=== PATIENT | female | born 1955 | race Caucasian/White ===

== ENCOUNTER → 2020-05-12 11:23 | Outpatient (CLI) | payer OTHER, SELFPAY ==
--- NOTE | ~2020-05-12 | MM_ITS ---
EXAMINATION: MM screening anastasia BI w jalen HISTORY: Screening mammogram TECHNIQUE: Craniocaudal and mediolateral oblique 3-D tomosynthesis images were obtained and synthetic 2-D images were generated. CAD analysis was submitted and interpreted. COMPARISON: 12/24/2018, 10/31/2017, 10/25/2016 bilateral digital screening mammograms BREAST PARENCHYMAL COMPOSITION: FINDINGS: An approximately 8 mm asymmetric opacity is noted in the mid posterior outer mid right jon st; diagnostic right mammogram is recommended, with ultrasound if required. Otherwise there is no evidence of suspicious mass, calcification, or architectural distortion to sugg est malignancy in either breast. There has been no suspicious interval change. IMPRESSION: 1. 8 mm asymmetric opacity in the mid outer right breast on craniocaudal view; 2. Diagnostic right mammogram is recommended, with ultrasound if required BI-RADS Category 0: Incomplete: Needs additional imaging evaluation. Reviewed, dictated and finalized at location A.
== END ==
PROVIDERS: PCP Internal Medicine; Visit Provider Nurse Practitioner Obstetrics & Gynecology
DX: Z12.31 Encounter for screening mammogram for malignant neoplasm of breast (principal); R92.8 Other abnormal and inconclusive findings on diagnostic imaging of breast
CPT/HCPCS: 77063; 77067

== ENCOUNTER → 2020-05-27 08:47 | Outpatient (CLI) | payer OTHER, SELFPAY ==
--- NOTE | ~2020-05-27 | MMUS_ITS ---
EXAMINATION: MM diagnostic mammo unilat RT, US breast RT limited HISTORY: Right breast asymmetry on screening mammogram TECHNIQUE: Additional 3-D tomosynthesis images of the right breast were performed and synthetic 2-D i mages were generated. CAD analysis was submitted and interpreted. High resolution limited right breas t ultrasound was performed. COMPARISON: 05/12/2020, 12/15/2018, 10/31/2017, 10/25/2016 FINDINGS: MAMMOGRAPHIC FINDINGS: An asymmetry in the middle third of the outer breast on the craniocaudal view 9.5 cm from the nipple has an appearance similar to prior mammograms with spot compression. There has been no suspicious int erval change. No suspicious calcification or architectural distortion are identified. ULTRASOUND: There is no evidence of focal abnormal solid or cystic lesion in the vicinity of the mammographic fin ding in question. IMPRESSION: 1. No mammographic or sonographic evidence of malignancy. 2. Recommend routine screening mammography in one year. BI-RADS Category 2: Benign finding(s). Reviewed, dictated and finalized at location A. IMPRESSION: 1. No mammographic or sonographic evidence of malignancy. 2. Recommend routine screening mammography in one year. BI-RADS Category 2: Benign finding(s).
== END ==
PROVIDERS: PCP Internal Medicine; Visit Provider Nurse Practitioner Obstetrics & Gynecology
DX: R92.8 Other abnormal and inconclusive findings on diagnostic imaging of breast (principal)
CPT/HCPCS: 76642; 77065

== ENCOUNTER 2022-01-27 11:18 | Outpatient (CLI) | payer MEDICARE, SELFPAY ==
[2022-01-27 11:39] LABS: Basophils Percent Auto 0.4 % (0.2-1.2); Eosinophils Absolute Auto 0.2 K/mm3 (0-0.3); Eosinophils Percent Auto 2.4 % (0-4.4); Hematocrit 36.8 % (37.0-47.0); Hemoglobin 11.2 g/dL (12.0-15.0); Immature Granulocyte Absolute 0.02 K/mm3 (0.00-0.031); Immature Granulocyte Percent A 0.2 % (0-0.5); Lymphocytes Absolute Auto 2.34 K/mm3 (0.9-3.2); Lymphocytes Percent Auto 24.1 % (18.3-44.2); Mean Corpuscular HGB Conc 30.4 g/dl (32-36); Mean Corpuscular Hemoglobin 26.3 pg (26-34); Mean Corpuscular Volume 86.4 fl (80-100); Mean Platelet Volume 8.1 fl (7.4-10.4); Monocytes Absolute Auto 0.8 K/mm3 (0.1-0.6); Neutrophils Absolute Auto 6.3 K/mm3 (1.3-6.7); Neutrophils Percent Auto 64.9 % (45.5-73.1); Platelet Count Result 473 k/mm3 (150-375); Red Blood Count 4.26 M/mm3 (4.2-5.4); Red Cell Distribution Width 15.3 % (11.5-14.5); White Blood Count 9.7 K/mm3 (4.5-10.0)
[2022-01-27 12:40] LABS: Iron 60 ug/dL (37-170)
[2022-01-27 12:41] LABS: Alanine Aminotransferase 28 U/L (6-35); Albumin Level 4.4 g/dL (3.5-5.1); Alkaline Phosphatase 109 U/L (38-126); Anion Gap 7 mmol/L (8-16); Aspartate Amino Transferase 33 U/L (14-36); Bilirubin,Total 0.2 mg/dL (0.2-1.3); Blood Urea Nitrogen 13 mg/dL (7-17); CRP 1.2 mg/dL (<1.0); Calcium 9.2 mg/dL (8.4-10.2); Carbon Dioxide 29 mmol/L (22-30); Chloride 103 mmol/L (98-107); Estimated Glomerular Filt Rate > 60; Glucose 99 mg/dL (65-110); Potassium 4.4 mmol/L (3.4-5.0); Sodium 139 mmol/L (137-145)
[2022-01-27 12:49] LABS: Erythrocyte Sedimentation Rate 47 mm/hr (0-20)
[2022-01-27 12:50] LABS: Percent Iron Saturation 17 % (20-50)
== END 2022-01-27 11:19 | disposition home or self-care (01) ==
LOC: ANHLAB 11:19
PROVIDERS: Visit Provider Internal Medicine Hematology & Oncology
DX: D64.9 Anemia, unspecified (principal)
CPT/HCPCS: 36415; 80053; 82728; 83540; 83550; 85025; 85652; 86140

== ENCOUNTER → 2022-03-08 15:08 | Outpatient (CLI) | payer MEDICARE, SELFPAY ==
--- NOTE | ~2022-03-08 | MM_ITS ---
EXAMINATION: MM screening anastasia BI w jalen HISTORY: Screening mammogram, family history of breast cancer in her sister. TECHNIQUE: Craniocaudal and mediolateral oblique 3-D tomosynthesis images were obtained and synthetic 2-D images were generated. CAD analysis was submitted and interpreted. COMPARISON: 05/27/2020, 05/12/2020, 12/24/2018 BREAST PARENCHYMAL COMPOSITION: There are scattered areas of fibroglandular density. FINDINGS: There is no suspicious mass, calcification, or architectural distortion to suggest malignan cy in either breast. There has been no suspicious interval change. IMPRESSION: 1. No mammographic evidence of malignancy. 2. Recommend routine screening mammography in one year. BI-RADS Category 1: Negative Reviewed, dictated and finalized at location A.
== END ==
PROVIDERS: PCP Internal Medicine; Visit Provider Obstetrics & Gynecology
DX: Z12.31 Encounter for screening mammogram for malignant neoplasm of breast (principal)
CPT/HCPCS: 77063; 77067

== ENCOUNTER 2023-01-31 02:03 | Day surgery (SDC) | payer MEDICARE, SELFPAY ==
[2023-01-24 14:37] VITALS: BMI 39.2
[2023-01-31 07:09] VITALS: BMI 40.1
[2023-01-31] MEDS: LACTATED RINGERS 1,000 ML 150 ML IV CONT (07:29)
[2023-01-31 07:31] VITALS: BP 188/76; PULSE 92; RESP 18; TEMP 36.3; O2SAT 98
[2023-01-31 07:33] LABS: Glucose Point of Care 138 mg/dl (65-105)
--- NOTE | 2023-01-31 07:34 | WPDANESEPPF ---
Anes - Initial Pre Proc Eval Procedure: Operation Date: 01/31/23 08:00 Proposed Procedures p Esophagogastroduodenoscopy & Screening Colonoscopy - Joseph Harvey MD Date/Time: 01/31/23 07:34 Surgeon: Joseph Harvey MD Pre Op Diagnosis: neoplasm screening, GERD Patient Data Age: 67 Gender: F Height: 1.65 m Weight: 109.3 kg Last Vital Signs Temp 36.3 C L 01/31/23 07:31 Pulse 92 01/31/23 07:31 Resp 18 01/31/23 07:31 BP 188/76 H 01/31/23 07:31 Pulse Ox 98 01/31/23 07:31 O2 Del Method Room Air 01/31/23 07:31 Allergies Allergy/AdvReac Type Severity Reaction Status Date / Time tioconazole Allergy Intermediate Swelling Verified 01/31/23 07:05 [From Monistat 1 (tioconazole)] adhesive tape AdvReac Intermediate Other Verified 01/31/23 07:05 Home Medications Medication Instructions Recorded Confirmed Type aripiprazole 5 mg tablet 5 mg PO DAILY 01/21/21 01/31/23 History metformin 500 mg tablet 500 mg PO BID 01/21/21 01/31/23 History sulfasalazine 500 mg tablet 0.5 g PO DAILY 01/21/21 01/31/23 History trazodone 50 mg tablet 50 mg PO QHS Insomnia 01/21/21 01/31/23 History venlafaxine 150 mg 150 mg PO DAILY 08/11/22 01/31/23 History capsule,extended release 24 hr Adult Multivitamin Gummies 1 tab-cap PO DAILY 01/24/23 01/31/23 History atorvastatin 80 mg tablet 80 mg PO DAILY 01/24/23 01/31/23 History esomeprazole magnesium 20 mg 20 mg PO DAILY 01/24/23 01/31/23 History capsule,delayed release (Nexium 24HR) Laboratory Tests 01/31/23 07:27 POC Capillary Glucose 138 H mg/dl (65-105) Patient hx anesthesia problems: none Family hx anesthesia problems: none Results Review: All pre-operative results and documents have been reviewed as part of the pre-operative evaluation. COUNTS INCLUDE 234 BEDS AT THE [facility] Past Medical History Medical History (Updated 01/31/23 @ 07:36 by Jaxon Chris MD) Anxiety Arthritis Diabetes GERD (gastroesophageal reflux disease) Headache Irritable bowel syndrome Morbid obesity with BMI of 40.0-44.9, adult Family History Family History (Updated 01/21/21 @ 14:21 by Nivia Mcmahan MA) Father Malignant neoplasm of prostate Hypertension Acute myocardial infarction Mother Diabetes mellitus Hypertension Depression Thyroid disease Sibling Asthma Diabetes mellitus Depression Kidney disease Son Diabetes mellitus Social History Social History (Updated 01/21/21 @ 14:22 by Niiva Mcmahan MA) Smoking status: Never smoker Alcohol intake: never Substance use: never Substance use type: does not use Living arrangements: with family Occupation/Education: retired Gender identity (if verbalized by the patient): Female Sexual Orientation (if Verbalized by the Patient): Straight or Heterosexual Spiritual care concerns: No Agree to blood products: Yes Anes - Eval Final PreProcedure Day of Procedure 01/31/23 07:34 Patient weight: morbidly obese Heart: regular rate and rhythm Lungs: clear to auscultation and normal air movement Airway: Mallampati scale class II Neurological: alert and oriented Last oral intake: >/= 8 hours ASA classification: III Emergent: no Anesthetic plan: proceed Anesthesia type and monitoring: general GIVS Results Review: All pre-operative results and documents have been reviewed as part of the pre-operative evaluation. Informed Consent: The patient's anesthetic plan and its attendant risks and benefits were discussed with the patient/family/POA. Questions were solicited and answers provided to the satisfaction of the patient/family/POA.
--- NOTE | 2023-01-31 07:50 | PM.HPGS ---
History of Present Illness History of Present Illness Consent: Risks, benefits, and alternatives have been discussed and questions answered. Patient agrees to proceed with procedure. Chief complaint: neoplasm screening, GERD Narrative: Suki Charles is a 67 year old female Presents for both colonoscopy and EGD the. Patient has a history of chronic GE reflux disease. Currently maintained on Nexium 20mg p.o. daily. EGD is requested because chronicity of her GE reflux symptoms. Additionally patient presents for neoplasia screening colonoscopy. Patient's current weight appetite and bowel movements are normal. Patient denies abdominal pain. She has had no bleeding. Family history is noncontributory. Review of Systems Review of Systems: Review of systems noncontributory. [facility] Past Medical History Medical History (Updated 01/31/23 @ 07:52 by Joseph Harvey MD) Anxiety Arthritis Diabetes GERD (gastroesophageal reflux disease) Headache Irritable bowel syndrome Morbid obesity with BMI of 40.0-44.9, adult Family History Family History (Updated 01/21/21 @ 14:21 by Nivia Mcmahan MA) Father Malignant neoplasm of prostate Hypertension Acute myocardial infarction Mother Diabetes mellitus Hypertension Depression Thyroid disease Sibling Asthma Diabetes mellitus Depression Kidney disease Son Diabetes mellitus Social History Social History (Updated 01/21/21 @ 14:22 by Nivia Mcmahan MA) Smoking status: Never smoker Alcohol intake: never Substance use: never Substance use type: does not use Living arrangements: with family Occupation/Education: retired Gender identity (if verbalized by the patient): Female Sexual Orientation (if Verbalized by the Patient): Straight or Heterosexual Spiritual care concerns: No Agree to blood products: Yes Meds Home Medications and Allergies Home Medications Medication Instructions Recorded Confirmed Type aripiprazole 5 mg tablet 5 mg PO DAILY 01/21/21 01/31/23 History metformin 500 mg tablet 500 mg PO BID 01/21/21 01/31/23 History sulfasalazine 500 mg tablet 0.5 g PO DAILY 01/21/21 01/31/23 History trazodone 50 mg tablet 50 mg PO QHS Insomnia 01/21/21 01/31/23 History venlafaxine 150 mg 150 mg PO DAILY 08/11/22 01/31/23 History capsule,extended release 24 hr Adult Multivitamin Gummies 1 tab-cap PO DAILY 01/24/23 01/31/23 History atorvastatin 80 mg tablet 80 mg PO DAILY 01/24/23 01/31/23 History esomeprazole magnesium 20 mg 20 mg PO DAILY 01/24/23 01/31/23 History capsule,delayed release (Nexium 24HR) Allergies Allergy/AdvReac Type Severity Reaction Status Date / Time tioconazole Allergy Intermediate Swelling Verified 01/31/23 07:05 [From Monistat 1 (tioconazole)] adhesive tape AdvReac Intermediate Other Verified 01/31/23 07:05 Vital Signs Vital Signs - 24 hr 01/31/23 07:31 Temperature 97.4 F L Pulse Rate 92 Respiratory Rate 18 Blood Pressure 188/76 H Pulse Oximetry 98 Oxygen Delivery Room Air Exam Narrative: Physical exam reveals patient to be alert. Vital signs stable. HEENT exam is unremarkable. Patient is anicteric. Lungs are clear to auscultation and percussion. Heart is without murmur or extra sounds. Abdomen bowel sounds are present soft nontender with no organomegaly. Digital external rectal exam is normal. Assessment and Plan Assessment and plan (1) Encounter for screening colonoscopy: Code(s): Z12.11 - Encounter for screening for malignant neoplasm of colon Status: Acute Assessment and Plan: Patient presents for neoplasia screening colonoscopy. Further recommendations may be given after endoscopy. (2) GERD (gastroesophageal reflux disease): Code(s): K21.9 - Gastro-esophageal reflux disease without esophagitis Status: Acute Assessment and Plan: Patient with chronic GE reflux disease symptoms. Currently controlle
--- NOTE | 2023-01-31 08:14 | SUR.OPER ---
EGD: [id number] COLON: [id number]
[2023-01-31 08:24] VITALS: BP 142/73; PULSE 86; RESP 22; O2SAT 96
[2023-01-31 08:34] VITALS: BP 153/69; PULSE 88; RESP 20; O2SAT 97
[2023-01-31 08:44] VITALS: BP 149/69; PULSE 87; RESP 20; O2SAT 97
== END 2023-01-31 08:49 | disposition home or self-care (01) ==
PROVIDERS: PCP Internal Medicine; Visit Provider Internal Medicine Gastroenterology
PROC: 0DJ08ZZ Inspection of Upper Intestinal Tract, Via Natural or Artificial Opening Endoscopic (ICD-10-PCS; CPT 43235; principal; 2023-01-31 08:00)
DX: Z12.11 Encounter for screening for malignant neoplasm of colon (principal); D12.4 Benign neoplasm of descending colon; K64.8 Other hemorrhoids; K21.9 Gastro-esophageal reflux disease without esophagitis; E11.9 Type 2 diabetes mellitus without complications; F41.9 Anxiety disorder, unspecified; E66.01 Morbid (severe) obesity due to excess calories; Z68.41 Body mass index [BMI] 40.0-44.9, adult; Z79.84 Long term (current) use of oral hypoglycemic drugs
CPT/HCPCS: 45385; 43239; 82948; 87081; 88305; J2704; J7120

== ENCOUNTER 2023-08-09 13:58 | Emergency (ER) | payer MEDICARE, SELFPAY ==
--- NOTE | ~2023-08-09 | CT_ITS ---
EXAMINATION: CT brain wo con INDICATION: Head injury COMPARISON: None TECHNIQUE: Standard unenhanced head CT. The dose-length product (DLP) was 681.00 mGy-cm. The mA was a djusted according to patient size. Iterative reconstruction technique was employed. FINDINGS: No intracranial hemorrhage, acute infarction, or abnormal mass lesion. The ventricles are n ormal. No abnormal mass effect or midline shift. The urrutia-white matter differentiation is normal. The basal cisterns are patent. The orbits are normal. The paranasal sinuses, mastoids and calvarium are normal. IMPRESSION: 1. No acute intracranial abnormality. Reviewed, dictated and finalized at location B. TING BINDERY ASSISTANT
--- NOTE | ~2023-08-09 | CT_ITS ---
EXAMINATION: CT facial & cervical spine wo DATE: 08/09/2023 16:23 INDICATION: Head injury TECHNIQUE: Computed tomography (CT) of the maxillofacial region and cervical spine was performed with out intravenous contrast. The dose-length product (DLP) was 601.29 mGy-cm. Automated exposure control and iterative reconstruction technique were employed. COMPARISON: None FINDINGS: MAXILLOFACIAL CT: There are nondisplaced bilateral nasal bone fractures. No additional facial fracture is identified. T he globes and orbits are normal. The paranasal sinuses are well aerated. CERVICAL SPINE CT: There are 3 mm of retrolisthesis of C5 on C6. Bone alignment is otherwise normal. The vertebral body heights are maintained. The odontoid process is intact. There is no fracture. There is moderate to se julia loss of intervertebral disc space height at C5-6 and C6-7. There is multilevel moderate to sever e facet and uncovertebral joint osteoarthritis. IMPRESSION: 1. Nondisplaced bilateral nasal bone fractures. 2. Moderate cervical spondylosis without acute abnormality of the cervical spine. Reviewed, dictated and finalized at location B. AS CUTTER HAND IMPRESSION: 1. Nondisplaced bilateral nasal bone fractures. 2. Moderate cervical spondylosis without acute abnormality of the cervical spin e.
[2023-08-09 14:02] VITALS: BP 185/96; PULSE 91; RESP 17; TEMP 36.4; O2SAT 96
--- NOTE | 2023-08-09 16:06 | ED.FALL ---
HPI - Fall General Chief Complaint: Fall Stated Complaint: fall yesterday Time Seen by Provider: 08/09/23 15:05 History of Present Illness HPI Narrative: 68-year-old female presenting after a fall. Patient states that she tripped in her bathroom yesterday and fell onto her face. States that she has had some facial and neck soreness. Does not think that she lost consciousness. She called her PCP today who advised that she come in for evaluation. No numbness or weakness. No chest pain, nausea vomiting, abdominal pain. No further complaints. Related Data Home Medications Medication Instructions Recorded Confirmed aripiprazole 5 mg tablet 5 mg PO DAILY 01/21/21 08/14/23 metformin 500 mg tablet 500 mg PO BID 01/21/21 08/14/23 sulfasalazine 500 mg tablet 0.5 g PO DAILY 01/21/21 08/14/23 trazodone 50 mg tablet 50 mg PO QHS Insomnia 01/21/21 08/14/23 venlafaxine 150 mg 150 mg PO DAILY 08/11/22 08/14/23 capsule,extended release 24 hr Adult Multivitamin Gummies 1 tab-cap PO DAILY 01/24/23 08/14/23 atorvastatin 80 mg tablet 80 mg PO DAILY 01/24/23 08/14/23 esomeprazole magnesium 20 mg 20 mg PO DAILY 01/24/23 08/14/23 capsule,delayed release (Nexium 24HR) Allergies Allergy/AdvReac Type Severity Reaction Status Date / Time tioconazole Allergy Intermediate Swelling Verified 08/14/23 08:25 [From Monistat 1 (tioconazole)] adhesive tape AdvReac Intermediate Other Verified 08/14/23 08:25 Review of Systems Review of Systems: All systems reviewed & are unremarkable except as noted in HPI and below PMFSH Past Medical History Medical History Anxiety Arthritis Diabetes GERD (gastroesophageal reflux disease) Headache Irritable bowel syndrome Morbid obesity with BMI of 40.0-44.9, adult Family History Family History Father Malignant neoplasm of prostate Hypertension Acute myocardial infarction Mother Diabetes mellitus Hypertension Depression Thyroid disease Sibling Asthma Diabetes mellitus Depression Kidney disease Son Diabetes mellitus Social History Social History Smoking status: Never smoker Alcohol intake: never Substance use: never Substance use type: does not use Lack of Transportation: No Lack of Food: Never True Current Housing: I Have Housing Concerned About Future Housing: No Difficulty Paying Gas/Electric Bills: No Difficulty Paying for Meds: No Currently Unemployed: No Education: High School Diploma/GED Difficulty w/ Childcare or Family Care: No Living arrangements: with family Occupation/Education: retired Gender identity (if verbalized by the patient): Female Sexual Orientation (if Verbalized by the Patient): Straight or Heterosexual Spiritual care concerns: No Agree to blood products: Yes Exam Narrative: GENERAL: Well-appearing, well-nourished, and in no acute distress. HEAD: Normocephalic, atraumatic. EYES: PERRLA and EOMI. ENT: erythema and tenderness over nasal bridge, no epistaxis, no septal hematoma NECK: Supple. no midline tenderness CHEST: No respiratory distress. HEART: Regular rate and rhythm. EXTREMITIES: Normal range of motion. SKIN: Warm, dry, no rash. NEURO: No focal deficits. Alert and oriented x3. PSYCH: Normal mood and affect. Course Vital Signs Vital signs: Vital Signs Temperature 97.6 F 08/09/23 14:02 Pulse Rate 91 08/09/23 14:02 Respiratory Rate 17 08/09/23 14:02 Blood Pressure 185/96 H 08/09/23 14:02 Pulse Oximetry 96 08/09/23 14:02 Oxygen Delivery Room Air 08/09/23 14:02 Temperature 97.6 F 08/09/23 14:02 Pulse Rate 88 08/09/23 18:12 Respiratory Rate 20 08/09/23 18:12 Blood Pressure 157/99 H 08/09/23 18:12 Pulse Oximetry 100 08/09/23 18:12 Oxygen Delivery Room Air 08/09/23 14:
[2023-08-09 18:12] VITALS: BP 157/99; PULSE 88; RESP 20; O2SAT 100
== END 2023-08-09 18:13 | disposition home or self-care (01) ==
PROVIDERS: Emergency Provider Emergency Medicine; PCP Internal Medicine
DX: S02.2XXA Fracture of nasal bones, initial encounter for closed fracture (principal); E11.9 Type 2 diabetes mellitus without complications; E66.01 Morbid (severe) obesity due to excess calories; Z68.39 Body mass index [BMI] 39.0-39.9, adult; K21.9 Gastro-esophageal reflux disease without esophagitis; K58.9 Irritable bowel syndrome, unspecified; M19.90 Unspecified osteoarthritis, unspecified site; F41.9 Anxiety disorder, unspecified; Z79.84 Long term (current) use of oral hypoglycemic drugs; M47.812 Spondylosis without myelopathy or radiculopathy, cervical region; W01.0XXA Fall on same level from slipping, tripping and stumbling without subsequent striking against object, initial encounter
CPT/HCPCS: 70450; 70486; 72125; 99284

== ENCOUNTER → 2023-10-31 13:46 | Outpatient (CLI) | payer MEDICARE, SELFPAY ==
--- NOTE | ~2023-10-31 | MM_ITS ---
EXAMINATION: MM screening anastasia BI w jalen HISTORY: Screening mammogram TECHNIQUE: Craniocaudal and mediolateral oblique 3-D tomosynthesis images were obtained and synthetic 2-D images were generated. CAD analysis was submitted and interpreted. COMPARISON: 03/08/2022 bilateral screening mammogram BREAST PARENCHYMAL COMPOSITION: The breasts are almost entirely fatty. FINDINGS: There is no evidence of suspicious mass, calcification, or architectural distortion to sugg est malignancy in either breast. There has been no suspicious interval change. IMPRESSION: 1. No mammographic evidence of malignancy. 2. Recommend routine screening mammography in one year. BI-RADS Category 1: Negative Reviewed, dictated and finalized at location A. BINDERY ASSEMBLY WORKER
== END ==
PROVIDERS: PCP Internal Medicine; Visit Provider Nurse Practitioner Obstetrics & Gynecology
DX: Z12.31 Encounter for screening mammogram for malignant neoplasm of breast (principal)
CPT/HCPCS: 77063; 77067

== ENCOUNTER 2023-11-13 13:33 | Outpatient (CLI) | payer MEDICARE, SELFPAY ==
[2023-11-13 14:05] LABS: Basophils Absolute Auto 0.1 K/mm3 (0.0-0.1); Basophils Percent Auto 0.4 % (0.2-1.2); Eosinophils Absolute Auto 0.2 K/mm3 (0-0.3); Eosinophils Percent Auto 1.7 % (0-4.4); Hematocrit 40.2 % (37.0-47.0); Hemoglobin 12.4 g/dL (12.0-15.0); Immature Granulocyte Absolute 0.06 K/mm3 (0.00-0.031); Immature Granulocyte Percent A 0.5 % (0-0.5); Lymphocytes Absolute Auto 2.37 K/mm3 (0.9-3.2); Lymphocytes Percent Auto 18.6 % (18.3-44.2); Mean Corpuscular HGB Conc 30.8 g/dl (32-36); Mean Corpuscular Hemoglobin 27.6 pg (26-34); Mean Corpuscular Volume 89.3 fl (80-100); Mean Platelet Volume 8.5 fl (7.4-10.4); Monocytes Absolute Auto 0.9 K/mm3 (0.1-0.6); Monocytes Percent Auto 7.1 % (2.6-8.5); Neutrophils Absolute Auto 9.2 K/mm3 (1.3-6.7); Neutrophils Percent Auto 71.7 % (45.5-73.1); Platelet Count Result 498 k/mm3 (150-375); Red Cell Distribution Width 14.6 % (11.5-14.5); White Blood Count 12.8 K/mm3 (4.5-10.0)
[2023-11-13 16:32] LABS: Iron 45 ug/dL (37-170)
[2023-11-13 16:35] LABS: Anion Gap 5 mmol/L (8-16); Blood Urea Nitrogen 13 mg/dL (7-17); Calcium 9.6 mg/dL (8.4-10.2); Carbon Dioxide 32 mmol/L (22-30); Chloride 101 mmol/L (98-107); Estimated Glomerular Filt Rate > 60; Glucose 123 mg/dL (65-110); Potassium 4.1 mmol/L (3.4-5.0); Sodium 138 mmol/L (137-145)
[2023-11-13 16:43] LABS: Percent Iron Saturation 16 % (20-50)
== END 2023-11-13 13:34 | disposition home or self-care (01) ==
LOC: ANHLAB 13:34
PROVIDERS: PCP Internal Medicine; Visit Provider Internal Medicine Hematology & Oncology
DX: D64.9 Anemia, unspecified (principal)
CPT/HCPCS: 36415; 80048; 82728; 83540; 83550; 85025

== ENCOUNTER 2024-11-22 13:50 | Outpatient (CLI) | payer MEDICARE, SELFPAY ==
--- OUTSIDE RECORDS SUMMARY | 2024-11-22 13:53 | XMS_ITS | Clinical Summary ---
Author Organization [facility] Address [address] [place] [id number] Phone Care Team Providers Care Commanding Officer Garage Name Role Phone Jai Quinones MD Primary Care Provider [phone] Allergies Active Allergy Reactions Criticality Noted Date Comments Wound Dressing Adhesive High 05/09/2017 Medications Medication Sig Dispensed Refills Start Date End Date Status ARIPiprazole (ABILIFY) 5 MG tablet 07/06/2021 Active metFORMIN (GLUCOPHAGE) 500 MG tablet 06/17/2021 Active rosuvastatin (CRESTOR) 40 MG tablet 05/26/2021 Active sulfaSALAzine (AZULFIDINE) 500 MG EC tablet Take 500 mg by mouth 2 (two) times a day 08/04/2021 Active traZODone (DESYREL) 50 MG tablet 06/17/2021 Active cyclobenzaprine (FLEXERIL) 10 MG tablet Take 10 mg by mouth 1 (one) time each day if needed 10/13/2021 Active atorvastatin (LIPITOR) 80 MG tablet 02/09/2022 Active ergocalciferol (VITAMIN D2) 1.25 MG (16303 UT) capsule Take 50,000 Units by mouth 1 (one) time per week 02/09/2022 Active Nystop 697398 UNIT/GM powder 06/09/2022 Active venlafaxine XR (EFFEXOR-XR) 150 MG 24 hr capsule 05/19/2022 Active Active Problems Problem Noted Date Diagnosed Date Attention-deficit hyperactiv ity disorder predominantly inattentive type 08/29/2021 Disorder of shoulder 08/29/2021 Disorder of trunk 08/29/2021 Enthesopathy of hip region 08/29/2021 Implantation of joint prosthesis 08/29/2021 Iron deficiency anemia 08/29/2021 Knee pain 08/29/2021 Lumbago 08/29/2021 Neck pain 08/29/2021 Osteoarthritis of knee 08/29/2021 Radiotherapy follow-up 08/29/2021 Shoulder joint pain 08/29/2021 Sinusitis 08/29/2021 Upper respiratory infection 08/29/2021 Hypertriglyceridemia 07/25/2018 Mitral valve regurgitation 07/25/2018 Spinal stenosis 07/25/2018 Human leukocyte antigen B27 test positive 2017 Overview (11/04/2021): Last Assessment & Plan: I have given her release of information so I can review her imaging an operative report to determine if there is any evidence of inflammatory spinal disease. 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 Abdominal gaseous distension 05/09/2017 Anxiety disorder 05/09/2017 Bronchitis 05/09/2017 Chest pain 05/09/2017 Chronic arthritis 05/09/2017 Chronic depression 05/09/2017 FH: Raised blood lipids 05/09/2017 Overview (08/29/2021): dad bypass,, mom pacer Gastro-esophageal reflux disease with esophagiti s 05/09/2017 Hyperlipidemia 05/09/2017 Iron deficiency 05/09/2017 Overview (08/29/2021): b12 cok Obesity 05/09/2017 Palpitations 05/09/2017 Sleep apnea 05/09/2017 Vitamin D deficiency 05/09/2017 Degenerative joint disease involving multiple luis ints 06/02/2014 Overview (11/04/2021): Last Assessment & Plan: I discussed with her that although possible she may have a mild peripheral spondyloarthropathy that we are addressing this with her sulfasalazine. She has no symptoms to suggest axial involvement and no other symptoms to warrant biologic therapy. We will continue sulfasalazine at her current dose and she will follow up with me in 6 months. Immunizations Name Administration Dates Next Due Influenza Split High Dose Pr eservative Free IM 06/24/2020,2015 Influenza TIV (IM) 05/30/2021 Influenza, Injectable, Quadr ivalent, Preservative Free 06/13/2019,05/28/2017,06/02/2016 Influenza, Unspecified 06/06/2018 Moderna Sars-cov-2 Vaccination 11/17/2020,2020 Family History Medical History Relation Comments Prostate cancer Father Kidney disease Mother Diabetes mellitus Sister Kidney disease Sister Nephrolithiasis Neg Hx Relation Status Comments Father Mother Paternal Grandfather Alive Sister Social History Tobacco Use Types Packs/Day Years Used Date Smoking Tobacco: Never Smokeless Tobacco: Never Alcohol Use Standard Drinks/Week Comments Not Currently 0 (1 standard drink = 0.6 oz pur e alcohol) Sex and Gender Information Value Date Recorded Sex Assigned at Not on file Gender Identity Not on file Sexual Orientation Not on file Last Filed Vital Signs Vital Sign Reading Time Taken Comments Blood Pressure 122/68 11/04/2021 10:16 AM DIE SINKER APPRENTICE Pulse - - Temperature 36.9 C (98.5 F) 11/04/2021 10:16 AM DIE SINKER APPRENTICE Respiratory Rate 18 11/04/2021 10:16 AM DIE SINKER APPRENTICE Oxygen Saturation - - Inhaled Oxygen Concentration - - Weight 105 kg (232 lb) 11/04/2021 10:16 AM DIE SINKER APPRENTICE Height 165.1 cm (5' 5 ) 11/04/2021 10:16 AM DIE SINKER APPRENTICE Body Mass Index 38.61 11/04/2021 10:16 AM DIE SINKER APPRENTICE Plan of Treatment Health Maintenance Due Date Last Done Comments Pneumococcal PPSV23/PCV13 65 + Years / Low and Medium Risk (1 of 4 - PCV) 2020 COVID-19 Vaccine (3 - 2023-2 5 season) 2024 11/17/2020, 10/15/2020 Influenza Vaccine (#1) 2024 , 06/13/2019, 06/06/2018, Additional history exists Care Teams Commanding Officer Garage Relationship Specialty Start Date End Date Jai Quinones MD [facility] [place] [address] PCP - General Family Medicine 04/20/21
--- OUTSIDE RECORDS SUMMARY | 2024-11-22 13:53 | XMS_ITS ---
Author Organization [facility], Address [address] [address] Care Team Providers Care Soil Biology Teacher Name Role Phone LewrubyJai Primary Care Provider UnaEleno Adan Unavailable [phone] REASON FOR VISIT Right Arm Encounters Encounter Location Date Provider Diagnosis [facility], [address] [facility] [address] [place] [address] 11/19/2024 Eleno Clay PLAN OF TREATMENT Next Appt Details Provider Name:Eleno Kaufman ot, 12/11/2024 11:30:00 AM, [address], [facility] [address], [place], [address],
--- OUTSIDE RECORDS SUMMARY | 2024-11-22 13:53 | XMS_ITS ---
Author Organization [facility] Address [address] [place] [address] [address] [place] [address] Care Team Providers Care Environmental Director Name Role Phone Timobrandonedgardoruby Jai Primary Care Provider Eleno Caicedo Unavailable [phone] ALLERGIES Allergen (clinical drug ingredient) Drug/Non Drug Allergy documented on EMR Reaction Allergy Type Onset Date Status seasonal (uncoded) Unknown Allergy A ctive RESULTS Component Value Reference Range Notes X ray : Cervical Spine 7 vie ws, AP, Lateral, Swimmers, Obliques, Flexion and Extension Reviewed date:11/21/2024 01:26:45 PM Interpretation:1213 Performing Lab: Notes/Report: 1213 X ray : Lumbar spine 5 views , AP, Lateral, Spot, Flexion and Extension Reviewed date:11/21/2024 01:26:40 PM Interpretation:1213 Performing Lab: Notes/Report: 1213 REASON FOR REFERRAL Reason DIAGNOSES: neck pain , radiculopathy, DDD, spinal stenosis, back pain 3 times per week for 3 weeks eval and treat, exercise, modalities per therapist's discretion; HEP Referral Organization [facility] Referring Provider First Name Eleno Referring Provider Last Name Obed Referring Provider Speciality Orthopedic Surgery Referred Provider Specialty Physical The rapy Referral Priority Routine REASON FOR VISIT Low back pain and cervical spine MEDICATIONS Medication SIG (Take, Route, Fr equency, Duration) Notes Start Date End Date Status buPROPion HCl Active ARIPiprazole Active methylPREDNISolone 4 MG as directed Oral ly for 6 days 11/21/2024 Active Culturelle Active traMADol HCl 50 MG 1 tablet as needed O rally every 4-6 hours as needed for pains for 7 days 11/21/2024 Active Venlafaxine HCl Acti ve sulfaSALAzine Active Nasacort Allergy 24HR Active L-Lysine Active Loratadine Active metFORMIN HCl Active traZODone HCl Active VITAL SIGNS BMI 39.93 kg/m2 11/21/2024 Height 65 in 11/21/2024 Weight 240 lbs 11/21/2024 Encounters Encounter Location Date Provider Diagnosis [facility], [address] [place] [address] 11/21/2024 Eleno Clay Cervical stenosis of spine M48.02 ASSESSMENTS Encounter Date Diagnosis Assessment Notes Treatment Notes Treatment Clinical Notes 11/21/2024 Cervical stenosis of spine (ICD-10 - M48.02) PLAN OF TREATMENT Medication Medication Name Sig Start Date Stop Date Notes methylPREDNISolone 4 MG as directed Orally for 6 days 10/27 traMADol HCl 50 MG 1 tablet as needed O rally every 4-6 hours as needed for pains for 7 days 11/21/2024 Pending Test Test Name Order Date MRI : Cervical without Contrast 11/22/19 25 Referrals Referral Date Details DIAGNOSES: neck pain , radiculopathy, DDD, spinal stenosis, back pain 3 times per week for 3 weeks eval and treat, exercise, modalities per therapist's discretion; HEP Next Appt Details Provider Name:Eleno Kaufman ot, 12/11/2024 11:30:00 AM, [address], [address], [place], [address], Consultation Request Notes Referral Date Referring Provider Referred Provider Not es 11/21/2024 Eleno Clay , DIAGNOSES: n nitin pain, radiculopathy, DDD, spinal stenosis, back pain 3 times per week for 3 weeks eval and treat, exercise, modalities per therapist's discretion; HEP
--- OUTSIDE RECORDS SUMMARY | 2024-11-22 13:53 | XMS_ITS | Continuity of Care Document ---
Author Organization [facility] Address [address] [place] [address] Phone Care Team Providers Care Male Model Name Role Phone Arnulfo Sage MD Unavailable Unavailable Advance Directives Directive Yes / No Effective Date File Name No Information Encounters Encounter Description Practice Location Reason(s) For Visit Diagnoses Date Provider Providers Copied on Encounter [facility], [address], [place], [place], [id number], [place] tel:[phone] [facility] No Information Chu Arredondo. [address] , [place], [place], [id number], [place]. tel:[phone] Referring Provider: Eleno Clay DO, [address], [place], [address]. tel:[phone] Family History Family Member Type Diagnosis Age At Onset No Information Payers Payer name Insurance type Covered alliance party ID Authoriza tiesha(s) [facility] CI [id number] Social History Type Description Quantity Date Captured Comments Sex Female Smoking Status No Information Chief Complaint And Reason For Visit No Information Reason For Referral Reason For Referral No Information History Of Present Illness Encounter Date Complaint History Of Prese nt Illness No Information Functional Status Date Functional Assessmen t No Information Instructions Date Instruction Additional Infor mation No Information Assessments Type Assessment Date No Information Patient Care Teams Name Effective Dates (start - stop) Status Members No Information
--- OUTSIDE RECORDS SUMMARY | 2024-11-22 13:54 | XMS_ITS | CONTINUITY OF CARE DOCUMENT ---
Author Name nisreen nielson Address Unknown Organization [facility] Address [address] [place] [address] Phone [phone] Care Team Providers Care Compliance Project Manager Name Role Phone Vamsi HAJI, Kirk Unavailable JOSE MANUEL BARRIENTOS MD Unavailable JOSE MANUEL BARRIENTOS MD Unavailable PROBLEMS Condition Status Date Provider Notes Hyperlipidemia active Kodak Malone MD IRON DEFICIENCY active Kodak Malone MD b12 cok Arthritis, chronic active Kodak Malone MD Bronchitis active Kodak Malone MD Obesity active Kodak Malone MD FAMILY HISTORY OF HEART DISEASE active Kodak Malone MD dad bypass,, mom pacer Anxiety disorder active Kodak Malone MD Depression, chronic active Kodak Malone MD SLEEP APNEA;intol to cpap active Kodak bhatti MD Esophagitis, reflux active Kodak Malone MD Abdominal bloating;calvert neg pe r pt, neg amylase and lipase, had gb out active Kodak Malone MD Vitamin D deficiency active Kodak Escobar Screening active Kodak Malone MD Chest pain, atypical active Kodak Escobar Palpitations active Kirk Agustin MD HTN borderline completed - Kodak Malone MD Hypertriglyceridemia active Kodak Escobar Spinal stenosis active Kodak Malone MD Mitral insufficiency, mild active Kodak carranza MD Diabetes mellitus, type 2 active Am diana Ventimiglia SURVEY TECHNICIAN CAD active Bobbi Ventimig rowena SURVEY TECHNICIAN Orthostatic dizziness active Kirk Agustin MD ENCOUNTERS Date Type Provider Location Encounter Diag nosis - In-person encounter Office Visit Kirk Agustin MD [facility] Orthostatic dizziness - In-person encounter Office Visit Kirk Agustin MD [facility] Diabetes mellitus, type 2CAD - In-person encounter Office Visit Kirk Agustin MD [facility] Palpitations - In-person encounter Office Visit Kirk Agustin MD [facility] Office - In-person encounter Office Visit Kodak Malone MD [facility] IRON DEFICIENCYAbdominal bloating;calvert neg per pt, neg amylase and lipase, had gb outScreeningChest pain, atypicalPalpitationsHTN borderlineHypertriglyceridemiaSpinal stenosisMitral insufficiency, mild - In-person encounter Office Visit Kodak Malone MD [facility] HyperlipidemiaIRON DEFICIENCYArthritis, chronicBronchitisObesityFAMILY HISTORY OF HEART DISEASEAnxiety disorderDepression, chronicSLEEP APNEA;intol to cpapEsophagitis, refluxAbdominal bloating;calvert neg per pt, neg amylase and lipase, had gb outVitamin D deficiencyScreeningChest pain, atypicalPalpitations VITAL SIGNS Date Observation Value Provider Body Mass Index (Ratio) 40.43 kg/m2 Norm Agustin MD blood pressure, diastolic 83 mm[Hg] Venkatesh Carroll blood pressure, systolic 161 mm[Hg] Tova Carroll oxygen saturation, oximetry 97 % Aysha Carroll respiratory rate E&M 14 /min Aysha Carroll pulse rate 104 /min Aysha Carroll weight E&M 243 [lb_av] Aysha Carroll blood pressure, cuff size regular Venkatesh Carroll height E&M 65 [in_i] Aysha Carroll Body Mass Index (Ratio) 41.10 kg/m2 Brijeshvenkatesh Domínguezmicynthia SURVEY TECHNICIAN blood pressure, cuff size regular Ja rret blood pressure, diastolic 79 mm[Hg] Ja rret blood pressure, systolic 145 mm[Hg] Jar ret pulse rate 91 /min Pedro Pablo y oxygen saturation, oximetry 95 % Pedro Pablo respiratory rate E&M 16 /min Pedro Pablo weight E&M 247 [lb_av] Pedro Pablo y height E&M 65 [in_i] Pedro Pablo y Body Mass Index (Ratio) 41.76 kg/m2 Norm Agustin MD blood pressure, cuff size large [facility] blood pressure, diastolic 80 mm[Hg] Ke rri Marvel blood pressure, systolic 136 mm[Hg] Francisco Javier Saeed oxygen saturation, oximetry 96 % Awa Saeed respiratory rate E&M 12 /min Awa duval pulse rate 85 /min Awa Forman [facility] weight E&M 251 [lb_av] Awa Forman [facility] height E&M 65 [in_i] Awa Forman [facility] Body Mass Index (Ratio) 38.10 kg/m2 Norm Agustin MD oxygen saturation, oximetry 95 % [facility], diastolic 76 mm[Hg] Ch astity Cata blood pressure, systolic 122 mm[Hg] Aparna stity Cata pulse rate 85 /min [facility] respiratory rate E&M 16 /min Aparnastit y Cata weight E&M 229 [lb_av] [facility] height E&M 65 [in_i] [facility] Body Mass Index (Ratio) 37.11 kg/m2 Marco Malone MD blood pressure, diastolic 70 mm[Hg] Da jhony Elena blood pressure, systolic 112 mm[Hg] Dac ia Elena oxygen saturation, oximetry 92 % Yvonne Elena respiratory rate E&M 16 /min Yvonne V oss pulse rate 91 /min Yvonne Elena weight E&M 223 [lb_av] Yvonne Elena height E&M 65 [in_i] Yvonne Elena blood pressure, diastolic 70 mm[Hg] Madeline nda Gonsalves blood pressure, systolic 120 mm[Hg] Wan da Gonsalves Body Mass Index (Ratio) 37.04 kg/m2 Marco Malone MD blood pressure, resting Yes Janet Mccollum blood pressure, diastolic 82 mm[Hg] Noe Mccollum blood pressure, systolic 143 mm[Hg] Jade Mccollum oxygen saturation, oximetry 98 % Ap Mccollum respiratory rate E&M 18 /min Albertina Mccollum pulse rate 80 /min Ap hare weight E&M 222.6 [lb_av] Ap fry height E&M 65 [in_i] Ap hare ALLERGIES Allergy Name Onset Date Reaction Criticality Status TAPE High Criticality active RESULTS Date Observation Value Provider Reference Range Interpretation Location ferritin, serum 16 ng/mL [facility] 15-150 8 B-12, serum 559 pg/mL [facility] 221-417 9610/10/0 8 lipase, serum 27 U/L [facility] 14-72 amylase, serum 20 1/L [facility] 31-124 Low hemoglobin A1C, blood, as % of total hemoglobin 5.6 % [facility] 4.8-5.6 prothrombin time (patient) 10.6 s [facility] 9.1-12.0 international normalized ratio (INR) 1.0 [facility] 0.8-1.2 iron saturation percent, serum 19 % [facility] 15-55 iron, serum 69 ug/dL [facility] 27-139 iron binding capacity, unsaturated 296 ug/dL [facility] 110-938 1768/10/0 8 iron binding capacity, total 365 ug/dL [facility] 250-450 HISTORY OF MEDICATION USE Medication Status Instructions Dates Provider Indications Com ments midodrine 5 mg tablet active Take 1 tablet by mouth three times a day Kirk Agustin MD [place] 200 mg tablet active Take 1 tablet by mouth once a day Bobbi Ventimiglia SURVEY TECHNICIAN atorvastatin 80 mg tablet active [place] Ventimiglia SURVEY TECHNICIAN aripiprazole 5 mg tablet active Take 1 tablet by mouth once a day [facility] aspirin 81 mg capsule active Take 1 capsule by mouth once a day [facility] metformin 500 mg tablet active take 1 pill twice a day Awa Saeed Lipitor 80 mg tablet completed Take 1 tablet by mouth once daily - [facility] misoprostol 100 mcg tablet completed 1 tablet twice a day - Awa Saeed gabapentin 100 mg capsule completed as needed - Awa Saeed Rexulti 0.25 mg tablet completed 1 tablet once a day - Awa Saeed Dulera 100-5 mcg/actuation HFA aerosol inhaler completed 2 puff twice a day - Awa Saeed tramadol 50 mg tablet completed as needed - Awa Saeed naltrexone 50 mg tablet completed once a day - Awa Saeed FENOFIBRATE CAPSULE completed Take once a day - Awa Saeed TRAZODONE HCL TABLET active 0.5-3 tablet Awa Saeed venlafaxine 150 mg capsule,extended release 24hr active once a day Awa Saeed Krill Oil ([place] 3 and 6) 1000-130(40-80) mg capsule completed once a day - Awa Saeed MULTIVITAMINS ORAL CAPSULE completed 1 tablet once a day - Awa Saeed aspirin 81 mg tablet,delayed release (DR/EC) completed once a week - Awa Saeed Xanax 0.5 mg tablet completed 1 tablet once a day - Awa Saeed [facility] 10 billion cell-200 mg capsule, sprinkle completed once a day - Awa Saeed L-LYSINE 500 MG CAPS active once a day Awa Saeed Nasacort 55 mcg aerosol,spray completed once a day - Awa Saeed coenzyme Q10-vit E-vit E mixed 100-20-15 mg capsule completed capsule by mouth once a day - Awa Saeed Allergy Relief-D (loratadine) 5-120 mg tablet extended release 12 hr completed once a day - Awa Saeed esomeprazole magnesium 40 mg capsule,delayed release(DR/EC) active as directed Awa Saeed [facility] VITAMIN D3 CAPSULE completed - Awa Saeed DULERA 200-5 MCG/ACT INHALATION AEROSOL completed 2 puffs twice daily - Kodak Malone MD sulfasalazine 500 mg tablet active 1 tablet by mouth once a day Awa Darlin cyclobenzaprine 5 mg tablet completed once a day - Awa Darlin Celebrex 200 mg capsule completed once a day - Awa Darlin estradiol 1 mg tablet completed once a day - Awa Darlin rosuvastatin 20 mg tablet completed - Awa Darlin SOCIAL HISTORY Date Observation Value Provider personal history of marijuana use no Kirk Agustin MD drug use no Kirk Escobar alcohol use no Kirk Escobar smoking status Never smoker Kirk Agustin MD personal history of marijuana use no Bobbi Ventimiglia [facility] drug use no Bobbi Ventimig rowena [facility] alcohol use no Bobbi Ventimig rowena [facility] smoking status Never smoker Bobbidiana Cotterm iglia [facility] smoking status Never smoker Kirk Agustin MD social history E&M Marital Statu s: C hildren: 3 O ccupation: Retired Smoking History: Justen rodriguez has never smoked. Kirk Agsutin MD social history reviewed E&M revi ewed - no changes required Kirk Agustin MD smoking status Never smoker Shruti campos social history E&M S moking History: Justen rodriguez has never smoked. Kodak Malone MD social history reviewed E&M revi ewed - no changes required Kodak Malone MD smoking status Never smoker Yvonne Parker smoking status Never smoker Alana Gonsalves social history E&M S moking History: P atient has never smoked. Kodak Malone MD social history reviewed E&M revi ewed - no changes required Kodak Malone MD smoking status Never smoker Ap Olguin FUNCTIONAL STATUS Date Observation Value Provider HRA, CV Assess/Plan, Angina (inactive) Management Plan continue current therapy [place] Saqib [facility] periodic limb moveme nt index absent (0) Alana Gonsalves FAMILY HISTORY Family Member Condition Father NM male <55 Father Family History of Co ronary Artery Disease: Full Sister Family History of Co ronary Artery Disease: Full Sister Family History of Di abetes: Mother Family History of Co ronary Artery Disease: INSURANCE PROVIDERS Payer name Policy type / Coverage type [employer] red libertarian ID AARP MEDICARE ADVANTAGE ([facility] COMPLETE PPO) Other [id number] ADVANCE DIRECTIVES Name Date DISCUSSED - NO DECISION MADE TREATMENT PLAN Date Name Performer Cardiology Kirk Agustin MD Cardiology Kirk Agustin MD Cardiology Kirk Agustin MD Cardiology Krik Agustin MD Cardiology:Will try midodrine Ra tavia Agustin MD Cardiology:Will add SGLT 2 f or protection of kidneys and heart H er updated medication list for this problem includes: Metformin 500 Mg Tablet (Metformin) ..... Take 1 pill twice a day [place] Saqib [facility] Cardiology:weight loss encourage d. [place] Saqib [facility] Cardiology:she had s tress test that showed fixed defect c oronary calcium score of 46 G oal is risk factor [facility] Cardiology:on statin therapy w ill get labs from PCP T he following medications were removed from the medication list: Lipitor 80 Mg Tablet (Atorvastatin) ..... Take 1 tablet by mouth once daily Her updated medication list for this problem includes: Atorvastatin 80 Mg Tablet (Atorvastatin) [place] Saqib [facility] Cardiology:improved n o underlying arrhythmia on tele [facility] Cardiology:resolved f ixed defect on stress test c oronary calcium score of 46 c ontinue asa and statin Bobbi Ventimiglia SURVEY TECHNICIAN Cardiology:Did not tolerate Moun jaro Kirk Agustin MD Cardiology Kirk Agustin MD Cardiology:Cannot wear CPAP Norm Agustin MD Cardiology:Needs telemonitor Samir Agustin MD Cardiology:Needs str ess test. Can't walk on treadmill. Kirk Agustin MD Cardiology Kirk Agustin MD Cardiology Kirk Agustin MD Cardiology Kirk Agustin MD Cardiology Kirk Agustin MD Cardiology:Normal te sting and calcium score of 0. No follow up necessary unless develops new symptoms. Kirk Agustin MD Cardiology follow up:did not wan t to see brian Malone MD Cardiology follow up : H er updated medication list for this problem includes: Fenofibrate Capsule (Fenofibrate micronized caps) ..... Take once daily Rosuvastatin Calcium 20 Mg Oral Tablet (Rosuvastatin calcium) Kodak Malone MD Cardiology follow up :neg treadmisl , edcho and calsium Kodak Malone MD Cardiology follow up :got infusoins by blood , up to date on colon Kodak Malone MD Cardiology follow up:doesa not w ant srugery Kodak Malone MD Cardiology follow up:had surgery Kodak Malone MD Cardiology follow up : nm a1c n eg parag Malone MD Cardiology:high crp Kodak beltran MD Cardiology Kodak Malone MD Cardiology Kodak Malone MD Cardiology:nml parag Malone MD Cardiology:controlled Kodak bhatti MD Cardiology:nml parag Malone MD Cardiology Kodak Malone MD Date Name CT, Coronary Calcium Score Monitor - Telemetry (Mobile Cardiac) Stress Regadenoson Complete Echo Holter Monitor 24 Hr Sleep Study Home LIPASE AMYLASE CT Abdomen w/o contr ast Abdominal US PROTHROMBIN TIME WIT H INR STR - Routine Complete Echo CT, Coronary Calcium Score HEMOGLOBIN A1c VITAMIN B12 FERRITIN IRON AND TOTAL IRON BINDING CAPACITY X-Ray, Chest - Routi ne HISTORY OF PROCEDURES Procedure Date Procedure Name Provider Procedure Notes S tatus Complex e/m visit add on Kirk Agustin MD completed CT- Coronary CA score Kirk Agustin MD completed EKG Kirk Agustin MD complete d EKG Kodak Malone MD complete d Ultrasound, abdomen, complete Kodak Malone MD completed CT- Coronary CA score Kodak Malone MD completed ZIO Holter Hookup Kodak Malone MD c ompleted EKG Kodak Malone MD complete d SNOMED-CT: [id number] Current Medications Documented Kodak Malone MD completed
--- OUTSIDE RECORDS SUMMARY | 2024-11-22 13:54 | XMS_ITS | Patient Health Record ---
Author Organization [facility] Address [address] [place] [address] [address] [place] [address] Care Team Providers Care Stenotype Machine Operator Name Role Phone Jai Quinones Primary Care Provider Eleno Caicedo Unavailable [phone] ALLERGIES Allergen (clinical drug ingredient) Drug/Non Drug [...] Specialty Physical The rapy Referral Priority Routine MEDICATIONS Medication SIG (Take, Route, Fr equency, Duration) Notes Start Date End Date Status Venlafaxine HCl Acti ve sulfaSALAzine Active metFORMIN HCl Active traZODone HCl Active buPROPion HCl Active ARIPiprazole Active methylPREDNISolone 4 MG as directed Oral ly for 6 days 11/21/2024 Active Culturelle Active traMADol HCl 50 MG 1 tablet as needed O rally every 4-6 hours as needed for pains for 7 days 11/21/2024 Active Nasacort Allergy 24HR Active L-Lysine Active Loratadine Active PROBLEMS Problem Type ICD Code Onset Dates Problem Status W/U Status Risk SNOMED Code Notes Problem 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 Lumbosacral spondylosis without myelopathy (75795478) Problem Spondylolisthesis (M43.10) Active confirmed Spondylolisthes is (042416942) 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 y (48934336) Problem Cervical herniated disc (M50.20) Active confirmed Displacement o f cervical intervertebral disc without myelopathy (55021534) Problem DDD (degenerative disc disease), lumbar (M51.36) Active confirmed Degenerative disc disease (73205869) Problem Spinal enthesopathy, 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) Active confirmed Spinal enthesopathy (28479932) Problem Bilateral primary osteoarthritis of knee (M17.0) Active confirmed Osteoarthritis of knee (168628008) VITAL SIGNS Height 65 in 11/21/2024 Weight 240 lbs 11/21/2024 BMI 39.93 kg/m2 11/21/2024 Encounters Encounter Location Date Provider Diagnosis [facility], [address] [address] 11/20/2024 Eleno Clay [facility], [address] [place] [id number] 11/21/2024 Eleno Clay Cervical stenosis of spine M48.02 [facility], [address] [address] 11/19/2024 Eleno Clay ASSESSMENTS Encounter Date Diagnosis Assessment Notes Treatment Notes Treatment Clinical Notes 11/21/2024 Cervical stenosis of spine (ICD-10 - M48.02) PLAN OF TREATMENT Pending Test Test Name Order Date Urinalysis, Complete 12/11/2017 Urinalysis, Complete 07/25/2018 CBC With Differential/Platelet 8 CBC With Differential/Platelet 8 CBC With Differential/Platelet 8 PT AND PTT 12/11/2017 PT AND PTT 07/25/2018 Comp. Metabolic Panel (14) 03/16/2018 Chem-Comprehensive 12/11/2017 Chem-Comprehensive 07/25/2018 MRI : Cervical without Contrast 11/22/19 DME_Vista Collar 07/25/2018 Cervical Anterior Discectomy and Fusion 07/25/2018 DME_Bone Stim, Cervical Spine 07/25/2018 Next Appt Details Provider Name:Eleno Kaufman ot, 12/11/2024 11:30:00 AM, [address], [address], [place], [address], Insurance Providers Payer Name Payer Address Payer Phone Subscriber Number Group Number Insured Name Patient Relationship to Insured Coverage Start Date Coverage End Date [facility] Medicare Advantage PPO [address] [address] [place] [address] [phone] [id number] Suki Lyons Self - patient is the insured MEDICAL (GENERAL) HISTORY Medical History History ICD Code Hypotension Asthma Bronchitis Chronic cough Anemia Blood clots Positive HLA-B27 Diabetes Arthritis Neck pain Back pain Numbness in hands/feet Spinal stenosis Gastritis Constipation IBS Endometriosis Obesity Depression Anxiety Denies being hospitalized for psychiatri c condition Denies h/o drug/chemical dependency Surgical History Surgery Date(Month/Year) X 3 Right meniscus tear X 2 Right partial knee replacement Appendectomy Hysterectomy Cholecystectomy L3-L5 TLIF 2017
--- OUTSIDE RECORDS SUMMARY | 2024-11-22 13:54 | XMS_ITS | Clinical Summary ---
Author Organization [facility] Gaby Lewismillie Address [address] [place] [address] Care Team Providers Care Shellfish Grower Name Role Phone Jai Quinones MD Primary Care Provider Allergies Active Allergy Reactions Criticality Noted Date Comments Adhesive Tape-Silicones Other (See Comments) Tioconazole Unknown 06/25/2018 Medications ARIPiprazole (ABILIFY) 5 mg tablet aripiprazole 5 mg tablet 1 Active metFORMIN (GLUCOPHAGE) 500 mg tablet metformin 500 mg tablet TAKE 1 TABLET BY MOUTH TWICE DAILY 1 Active loratadine 10 mg Capsule Take by mouth. Acti ve mometasone (NASONEX) 50 mcg/actuation Jackson, Non-Aerosol Administer 1 Jackson in each nostril 2 times daily. Active nystatin (MYCOSTATIN) 100,000 unit/gram Cream nystatin 100,000 unit/gram topical cream APPLY TOPICALLY TO THE AFFECTED AREA TWICE DAILY Active nabumetone (RELAFEN) 750 mg tablet nabumetone 750 mg tablet Active cholecalciferol , vitamin D3, 1,000 unit Take by mouth. Acti ve rosuvastatin (CRESTOR) 10 mg tablet Take 10 mg by mouth daily. 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 Encounters Date Type Department Care Team Description 11/13/2024 External Device Data [facility] ABSTRACTION Provider, Abstract 11/02/2024 External Device Data [facility] Provider, Abstract 11/01/2024 External Device Data [facility] Provider, Abstract 10/30/2024 External Device Data [facility] Provider, Abstract 10/30/2024 External Device Data [facility] Provider, Abstract 10/16/2024 External Device Data [facility] Provider, Abstract 09/19/2024 External Device Data [facility]STRACTION Provider, Abstract from Last 3 Months Family History Medical History Relation Name Comments Prostate Cancer Father Relation Name Status Comments Daughter 1 Alive Daughter 2 Alive Father Mother Sister 1 Alive Sister 2 Alive Son Alive Social History Tobacco Use Types Packs/Day Years Used Date Smoking Tobacco: Never Smokeless Tobacco: Never Tobacco Cessation:Counseling Given: Not Answered Alcohol Use Standard Drinks/Week Comments Never 0 (1 standard drink = 0.6 oz pur e alcohol) Comments Unknown Sex and Gender Information Value Date Recorded Sex Assigned at Not on file Legal 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 Gender Identity Not on file Sexual Orientation Not on file Last Filed Vital Signs Vital Sign Reading Time Taken Comments Blood Pressure 140/79 04/24/2023 9:53 AM CDT Pulse 94 04/24/2023 9:52 AM CDT Temperature 36.3 C (97.3 F) 04/24/2023 9:52 AM CDT Respiratory Rate 10 04/24/2023 9:52 AM CDT Oxygen Saturation 95% 04/24/2023 9:52 AM CDT Inhaled Oxygen Concentration - - Weight 108.9 kg (240 lb) 04/24/2023 9:52 AM CDT Height 166.4 cm (5' 5.5 ) 02/02/2022 2:59 PM CDT Body Mass Index 39.33 02/02/2022 2:59 PM CDT Plan of Treatment Upcoming Encounters Date Type Department Care Team (Late st Contact Info) Description 11/25/2024 2:45 PM CDT Office Visit [facility] Oncology and Hematology - [place] [address] [place] [address] Reynaldo Tatum MD [address] [place] [address] Health Maintenance Due Date Last Done Comments DIABETES ANNUAL FOOT EXAM 1973 DIABETES ANNUAL RETINAL EXAM 1973 DIABETES HBA1C Q 6 MONTHS 1973 DIABETES MICROALBUMIN ANNUAL SCREEN 1973 LDL CHOLESTEROL ANNUAL 1973 DTAP/TDAP/TD VACCINES (1 - Tdap) 1974 BREAST CANCER SCREENING 1995 FIT-DNA Q 3 years 2000 FIT/FOBT Q 1 year 2000 Flex Sig/CT Colonography Q 5 years 2000 ZOSTER VACCINE (1 of 2) 2005 OSTEOPOROSIS SCREENING 2020 INFLUENZA VACCINE (#1) 2024 , 05/30/2021, 06/24/2020, Additional history exists Medicare Advantage ([place]) Preventative Visit/Annual Wellness Visit 08/28/2024 COLORECTAL SCREENING 03/16/2027 03/16/2017 Colorectal Cancer Screening 03/16/2027 RSV VACCINE (60+ or ) (1 - 1-dose 75+ series) 2030 PNEUMOCOCCAL VACCINE 50+ YEARS Completed 06/22/2022 Insurance Care Teams Shellfish Grower Relationship Specialty Start Date End Date Jai Quinones MD PCP - General Internal Medicine 01/27/22
--- OUTSIDE RECORDS SUMMARY | 2024-11-22 13:54 | XMS_ITS | Clinical Summary ---
Author Organization [facility] Address [address] [place] [address] Care Team Providers Care Automotive Parts Specialist Name Role Phone Jai Quinones MD Primary Care Provider Source Comments [facility],non-owned Affiliates and Associated Physician Practices is amultiple site organization consisting of ambulatory clinics and hospital sitesin [place], [place], [place] and [place]. This disclosure is being madepursuant to the Care Everywhere program and may not contain all information available regarding this patient. Last updated 18.[facility] [employer] Allergies No known active allergies Medications * Be aware that medications may not be up to date on this document. Alwaysverify current medications with the patient. Medication Sig Dispensed Refills Start Date End Date Status mometasone (NASONEX) 50 MCG/ACT nasal spray Deweese 1 Deweese into each nostril 2 times daily Active Loratadine (CLARITIN) 10 MG Active estradiol (ESTRACE) 1 MG tablet Take 1 mg by mouth once daily Active celecoxib (CELEBREX) 200 MG capsule Take 200 mg by mouth once daily Active epinastine (ELESTAT) 0.05 % ophthalmic solution Instill 1 Drop into both eyes as needed Active Mometasone Furo-Formoterol Fum (DULERA IN) Active ALPRAZolam (XANAX) 0.5 MG tablet Take 0.5 mg by mouth 3 times daily as needed for Anxiety Active traZODone (DESYREL) 100 MG tablet Take 100 mg by mouth at bedtime Active rosuvastatin (CRESTOR) 10 MG tablet Take 10 mg by mouth once daily Active esomeprazole (NEXIUM) 40 MG capsule Take 40 mg by mouth daily before breakfast Active Vitamin D, Cholecalciferol, 1000 UNITS Active aspirin (ASPIRIN) 81 MG tablet Take 81 mg by mouth once daily Active Immunizations Name Administration Dates Next Due INFLUENZA VACCINE, QUADR. (F LUZONE; FLULAVAL; FLUARIX; AFLURIA QUADRIVALENT; 6MO+), 0.5 ML (IIV4) 05/28/2017 Family History Medical History Relation Name Comments Cancer - Other Father prostate Diabetes - Type 2 Sister Relation Name Status Comments Father Mother Alive Sister Alive Social History Tobacco Use Types Packs/Day Years Used Date Smoking Tobacco: Never Smokeless Tobacco: Never Alcohol Use Standard Drinks/Week Comments No 0 (1 standard drink = 0.6 oz pur e alcohol) Sex and Gender Information Value Date Recorded Sex Assigned at Not on file Gender Identity Not on file Sexual Orientation Not on file Last Filed Vital Signs Vital Sign Reading Time Taken Comments Blood Pressure 118/82 11/19/2018 3:05 PM CDT Pulse 75 11/19/2018 3:05 PM CDT Temperature 36.8 C (98.2 F) 11/19/2018 3:05 PM CDT Respiratory Rate 16 11/19/2018 3:05 PM CDT Oxygen Saturation 95% 11/19/2018 3:05 PM CDT Inhaled Oxygen Concentration - - Weight 99.8 kg (220 lb) 11/19/2018 3:05 PM CDT Height 166.4 cm (5' 5.5 ) 11/19/2018 3:05 PM CDT Body Mass Index 36.05 11/19/2018 3:05 PM CDT Plan of Treatment Upcoming Encounters Date Type Department Care Team (Late st Contact Info) Description 01/13/2025 10:00 AM CDT Office Visit [facility] [place] [address] [place] [id number] Chante Christian, WASHCOAT WIPER-INDUSTRIAL PIPEFITTER JOURNEYMAN [address] [place] [address] [address] [place] [address] Health Maintenance Due Date Last Done Comments BONE DENSITY TESTING 1955 COLOGUARD (AGES 45-75) - COLON CA SCREENING 1955 COLON MONITORING 1955 COLONOSCOPY - COLON CA SCREENING 1955 CT COLONOGRAPHY - COLON CA SCREENING 1955 Colorectal Cancer Screening 1955 FIT - COLON CA SCREENING 1955 FLEX SIG - COLON CA SCREENING 1955 MAMMOGRAM 1955 HEPATITIS C SCREENING 06/09/1973 DTAP/TDAP/TD VACCINES (1 - Tdap) 1974 PNEUMOCOCCAL VACCINE 50+ (1 of 1 - PCV) 2005 ZOSTER VACCINE (1 of 2) 2005 SCREENING FOR DIABETES 11/19/2018 COVID-19 VACCINE (3 - season) 2024 11/17/2020, 10/15/2020 INFLUENZA VACCINE (#1) 2024 , 06/24/2020, 06/13/2019, Additional history exists DEPRESSION SCREENING 08/28/2024 MEDICARE AWV CALENDAR YEAR 2024 Respiratory Syncytial Virus (RSV) Vaccine Pt: or over 60 yrs (1 - 1-dose 75+ series) 2030 HEPATITIS B VACCINE Aged Out No longe r eligible based on patient's age to complete this topic HIB VACCINE Aged Out No longer eligi ble based on patient's age to complete this topic HPV VACCINE Aged Out No longer eligi ble based on patient's age to complete this topic MENINGOCOCCAL (Group B) VACCINE SHARED DECISION-MAKING Aged Out No longer eligible based on patient's age to complete this topic MENINGOCOCCAL GROUPS A/C/Y/W VACCINE Aged Out No longer eligible based on patient's age to complete this topic Care Teams Automotive Parts Specialist Relationship Specialty Start Date End Date Jai Quinones MD PCP - General Internal Medicine 05/28/17
--- OUTSIDE RECORDS SUMMARY | 2024-11-22 13:54 | XMS_ITS ---
Author Organization [facility] Address [address] [facility] [address] [place] [address] Care Team Providers Care Process Development Manager Name Role Phone LewrubyJai Primary Care Provider Eleno Caicedo Unavailable [phone] REASON FOR VISIT Low back pain Encounters Encounter Location Date Provider Diagnosis [facility], [address] [facility] [address] [place] [address] 11/20/2024 Eleno Clay PLAN OF TREATMENT Next Appt Details Provider Name:Eleno Kaufman ot, 12/11/2024 11:30:00 AM, [address], [facility] [address], [place], [address],
--- OUTSIDE RECORDS SUMMARY | 2024-11-22 13:55 | XMS_ITS | Continuity of Care Document ---
Author Organization [facility] Address [address] [place] [address] [address] [place] [address] Phone Care Team Providers Care Pest Control Chemical Technician Name Role Phone Rafaela Kelsy Unavailable Unavailable Procedures Procedure Date Office/outpatient Visit, Est Office/outpatient Visit, Est Advance Directives Directive Yes / No Effective Date File Name No Information Encounters Encounter Description Practice Location Reason(s) For Visit Diagnoses Date Provider Providers Copied on Encounter Office/outpat ient Visit, [facility] [place], [address] [place] [address] [address], [place], [place], [id number], tel:[phone] [facility] No Information 8-200 8 Rafaela Tierney. [address] [facility] [address] , [address], [place], [place], [facility], . tel:[phone] Office/outpat ient Visit, [facility] [place], [address] [place] [address] [address], [place], [place], [id number], tel:[phone] [facility] No Information 7-200 8 Degroot OD Joseph. [address] , [address], [place], [place], [facility], [place]. tel:[phone] Family History Family Member Type Diagnosis Age At Onset No Information Payers Payer name Insurance type Covered libertarian ID Authoriza tion(s) No Information Social History Type Description Quantity Date Captured [...]
--- OUTSIDE RECORDS SUMMARY | 2024-11-22 13:55 | XMS_ITS | Data Portability ---
Author Organization [place] [facility], Main Office Address [address] [place] [address] Care Team Providers Care Learning Specialist Name Role Phone JOSE MANUEL QUINONES Primary Care Provider [phone] JOSE MANUEL QUINONES Referring Provider [facility] Roofer Vinyl Coating [phone] MALCOM YU Hematology/Oncology [phone] JUNIE STUART Cephalometric Technician [phone] SINDY MALAVE Pump Assembler Assessment Encounter Date Assessment Date Assessment LastModified by Organization Details LastModified Time 03/20/2023 03/20/2023 11/06/2020: Micro alb 45.5 TSH/FT4: WNL Vit D 30.4 A1C 6.3H CMP: Gluc 149 Chol 139, TG 173, HLD 65, LDL 39 CBC: PLT 471 12/18/2020: CBC: PLT 478 TSH/FT4: WNL VIt d 30.4 04/09/2021: Micro alb 16.7 A1C 6.2 10/09/2021: TSH 5.750H, FT4: 1.08 CBC: PLT 521 CMP: Gluc 123 Chol 165, TG 307, HDL 55, LDL 62 A1C 6.2 02/04/2022: A1C 6.4 TSH/FT4: WNL VIT D 28.1 Urine micro alb 35.7 CMP: Gluc 141 LIPIDS: TG 240 CBC: HGB 11.6, PLT 542 10/18/2022 CBC: PLT 497 CHOL: TGL 213 CMP: GLUC 116 MICRO ALB URINE: 32.2 A1C: 6.6 TSH/FT4: WNL 03/17/2023: PLT 466 Gluc 136 ALT 37 TG 230 VIT D 21.5 [email or web address] Not available 03/20/2023 14:36:37 09/13/2023 09/13/2023 11/06/2020: Micro alb 45.5 TSH/FT4: WNL Vit D 30.4 A1C 6.3H CMP: Gluc 149 Chol 139, TG 173, HLD 65, LDL 39 CBC: PLT 471 12/18/2020: CBC: PLT 478 TSH/FT4: WNL VIt d 30.4 04/09/2021: Micro alb 16.7 A1C 6.2 10/09/2021: TSH 5.750H, FT4: 1.08 CBC: PLT 521 CMP: Gluc 123 Chol 165, TG 307, HDL 55, LDL 62 A1C 6.2 02/04/2022: A1C 6.4 TSH/FT4: WNL VIT D 28.1 Urine micro alb 35.7 CMP: Gluc 141 LIPIDS: TG 240 CBC: HGB 11.6, PLT 542 10/18/2022 CBC: PLT 497 CHOL: TGL 213 CMP: GLUC 116 MICRO ALB URINE: 32.2 A1C: 6.6 TSH/FT4: WNL 03/17/2023: PLT 466 Gluc 136 ALT 37 TG 230 VIT D 21.5 09/08/2023: A1C 6.5 TG 155 VIT D 25.5 Gluc 133, ALP 132, ALT 36 The patient gave verbal consent using TelePhonic services and the consent is documented in the medical record prior to using the service. The patient has been informed of what a TeleMedicine visit is. Patient is located at home. Provider is located at office. Names and roles of persons in addition to the patient and provider participating in telemedicine services include none. The patient had a 15 minute TeleMedicine consultation via phone call to discuss the following: [email or web address] Not available 09/13/2023 14:59:11 02/12/2024 02/12/2024 11/06/2020: Micro alb 45.5 TSH/FT4: WNL Vit D 30.4 A1C 6.3H CMP: Gluc 149 Chol 139, TG 173, HLD 65, LDL 39 CBC: PLT 471 12/18/2020: CBC: PLT 478 TSH/FT4: WNL VIt d 30.4 04/09/2021: Micro alb 16.7 A1C 6.2 10/09/2021: TSH 5.750H, FT4: 1.08 CBC: PLT 521 CMP: Gluc 123 Chol 165, TG 307, HDL 55, LDL 62 A1C 6.2 02/04/2022: A1C 6.4 TSH/FT4: WNL VIT D 28.1 Urine micro alb 35.7 CMP: Gluc 141 LIPIDS: TG 240 CBC: HGB 11.6, PLT 542 10/18/2022 CBC: PLT 497 CHOL: TGL 213 CMP: GLUC 116 MICRO ALB URINE: 32.2 A1C: 6.6 TSH/FT4: WNL 03/17/2023: PLT 466 Gluc 136 ALT 37 TG 230 VIT D 21.5 11/06/2020: Micro alb 45.5 TSH/FT4: WNL Vit D 30.4 A1C 6.3H CMP: Gluc 149 Chol 139, TG 173, HLD 65, LDL 39 CBC: PLT 471 12/18/2020: CBC: PLT 478 TSH/FT4: WNL VIt d 30.4 04/09/2021: Micro alb 16.7 A1C 6.2 10/09/2021: TSH 5.750H, FT4: 1.08 CBC: PLT 521 CMP: Gluc 123 Chol 165, TG 307, HDL 55, LDL 62 A1C 6.2 02/04/2022: A1C 6.4 TSH/FT4: WNL VIT D 28.1 Urine micro alb 35.7 CMP: Gluc 141 LIPIDS: TG 240 CBC: HGB 11.6, PLT 542 10/18/2022 CBC: PLT 497 CHOL: TGL 213 CMP: GLUC 116 MICRO ALB URINE: 32.2 A1C: 6.6 TSH/FT4: WNL 03/17/2023: PLT 466 Gluc 136 ALT 37 TG 230 VIT D 21.5 09/08/2023: A1C 6.5 TG 155 VIT D 25.5 Gluc 133, ALP 132, ALT 36 11/06/2020: Micro alb 45.5 TSH/FT4: WNL Vit D 30.4 A1C 6.3H CMP: Gluc 149 Chol 139, TG 173, HLD 65, LDL 39 CBC: PLT 471 12/18/2020: CBC: PLT 478 TSH/FT4: WNL VIt d 30.4 04/09/2021: Micro alb 16.7 A1C 6.2 10/09/2021: TSH 5.750H, FT4: 1.08 CBC: PLT 521 CMP: Gluc 123 Chol 165, TG 307, HDL 55, LDL 62 A1C 6.2 02/04/2022: A1C 6.4 TSH/FT4: WNL VIT D 28.1 Urine micro alb 35.7 CMP: Gluc 141 LIPIDS: TG 240 CBC: HGB 11.6, PLT 542 10/18/2022 CBC: PLT 497 CHOL: TGL 213 CMP: GLUC 116 MICRO ALB URINE: 32.2 A1C: 6.6 TSH/FT4: WNL 03/17/2023: PLT 466 Gluc 136 ALT 37 TG 230 VIT D 21.5 09/08/2023: A1C 6.5 TG 155 VIT D 25.5 Gluc 133, ALP 132, ALT 36 02/12/2024: A1C 6.9 Gluc 165, ALP 142, ALT/AST52/42 TG 204 Urine micro alb 26.2 WBC 11.8H, PLT 555H stacia Not available 02/12/2024 16:13:16 06/03/2024 06/03/2024 11/06/2020: Micro alb 45.5 TSH/FT4: WNL Vit D 30.4 A1C 6.3H CMP: Gluc 149 Chol 139, TG 173, HLD 65, LDL 39 CBC: PLT 471 12/18/2020: CBC: PLT 478 TSH/FT4: WNL VIt d 30.4 04/09/2021: Micro alb 16.7 A1C 6.2 10/09/2021: TSH 5.750H, FT4: 1.08 CBC: PLT 521 CMP: Gluc 123 Chol 165, TG 307, HDL 55, LDL 62 A1C 6.2 02/04/2022: A1C 6.4 TSH/FT4: WNL VIT D 28.1 Urine micro alb 35.7 CMP: Gluc 141 LIPIDS: TG 240 CBC: HGB 11.6, PLT 542 10/18/2022 CBC: PLT 497 CHOL: TGL 213 CMP: GLUC 116 MICRO ALB URINE: 32.2 A1C: 6.6 TSH/FT4: WNL 03/17/2023: PLT 466 Gluc 136 ALT 37 TG 230 VIT D 21.5 09/08/2023: A1C 6.5 TG 155 VIT D 25.5 Gluc 133, ALP 132, ALT 36 02/12/2024: A1C 6.9 Gluc 165, ALP 142, ALT/AST52/42 TG 204 Urine micro alb 26.2 WBC 11.8H, PLT 555H 05/30/2024: A1C 6.9 VIT D 18.4 Urine micro alb 53.2 TG 214 Gluc 136, ALP 127, ALT/AST 58/44 PLT 544 50 minutes spent in the office, repeat BP done, ACCU done, chart updated, discussed with patient and her stacia Not available 06/03/2024 12:46:25 11/13/2024 11/13/2024 11/06/2020: Micro alb 45.5 TSH/FT4: WNL Vit D 30.4 A1C 6.3H CMP: Gluc 149 Chol 139, TG 173, HLD 65, LDL 39 CBC: PLT 471 12/18/2020: CBC: PLT 478 TSH/FT4: WNL VIt d 30.4 04/09/2021: Micro alb 16.7 A1C 6.2 10/09/2021: TSH 5.750H, FT4: 1.08 CBC: PLT 521 CMP: Gluc 123 Chol 165, TG 307, HDL 55, LDL 62 A1C 6.2 02/04/2022: A1C 6.4 TSH/FT4: WNL VIT D 28.1 Urine micro alb 35.7 CMP: Gluc 141 LIPIDS: TG 240 CBC: HGB 11.6, PLT 542 10/18/2022 CBC: PLT 497 CHOL: TGL 213 CMP: GLUC 116 MICRO ALB URINE: 32.2 A1C: 6.6 TSH/FT4: WNL 03/17/2023: PLT 466 Gluc 136 ALT 37 TG 230 VIT D 21.5 09/08/2023: A1C 6.5 TG 155 VIT D 25.5 Gluc 133, ALP 132, ALT 36 02/12/2024: A1C 6.9 Gluc 165, ALP 142, ALT/AST52/42 TG 204 Urine micro alb 26.2 WBC 11.8H, PLT 555H 05/30/2024: A1C 6.9 VIT D 18.4 Urine micro alb 53.2 TG 214 Gluc 136, ALP 127, ALT/AST 58/44 PLT 544 45 minutes spent with the patient, labs ordered, referral provided [email or web address] Not available 11/13/2024 16:07:12 Plan of Treatment Reminders Order Date Submit Date Provider Last Modified By Organization Details Last Modified Time Details Appointments Follow Up 15 2024 10:45A M Jose Manuel lipscomb MD Not available Not available Not available Lab lipid panel, serum 2024 025 [facility], [address], [place], [address], 11/13/2024 16:05:35 CMP, serum or plasma 2024 025 [facility], [address], [place], [address], 11/13/2024 16:05:37 TSH, serum or plasma 2024 025 [facility], [address], [place], [address], 11/13/2024 16:05:35 CBC w/ auto diff 2024 025 [facility], [address], [place], [address], 11/13/2024 16:05:36 T4, free, serum 2024 025 [facility], [address], [place], [address], 11/13/2024 16:05:35 vitamin D, 25-hydrox y, total, serum 2024 025 [facility], [address], [place], [address], 11/13/2024 16:05:36 HbA1c (hemoglob in A1c), blood 2024 025 [facility], [address], [place], [address], 11/13/2024 16:05:37 microalbu min, urine 2024 025 [facility], [address], [place], [address], 11/13/2024 16:05:36 lipid panel, serum 2023 024 [facility], [address], [place], [address], 06/04/2024 17:25:55 CMP, serum or plasma 2023 024 [facility], [address], [place], [address], 06/04/2024 17:25:54 TSH, serum or plasma 2023 024 [facility], [address], [place], [address], 06/04/2024 17:25:58 CBC w/ auto diff 2023 024 [facility], [address], [place], [address], 06/04/2024 17:25:53 T4, free, serum 2023 024 [facility], [address], [place], [address], 06/04/2024 17:25:56 vitamin D, 25-hydrox y, total, serum 2023 024 [email or web address] [facility], [address], [place], [address], 06/03/2024 11:53:21 HbA1c (hemoglob in A1c), blood 2023 024 [email or web address] [facility], [address], [place], [address], 06/03/2024 11:53:22 microalbu min, urine 2023 024 [facility], [address], [place], [address], 06/04/2024 17:25:57 lipid panel, serum 2023 024 [email or web address] [facility], [address], [place], [address], 08/12/2024 12:23:49 CMP, serum or plasma 2023 024 [email or web address] [facility], [address], [place], [address], 08/12/2024 12:23:49 TSH, serum or plasma 2023 [address], [address], [place], [address], 08/12/2024 12:23:49 CBC w/ auto diff [address], [address], [place], [address], 08/12/2024 12:23:49 T4, free, serum 2023 [address], [address], [place], [address], 08/12/2024 12:23:50 vitamin D, 25-hydrox y, total, serum 2023 [address], [address], [place], [address], 08/12/2024 12:23:48 HbA1c (hemoglob in A1c), blood 2023 024 [email or web address] [facility], [address], [place], [address], 08/12/2024 12:23:48 microalbu min, urine 2023 024 [email or web address] [facility], [address], [place], [address], 08/12/2024 12:23:49 lipid panel, serum 2023 024 [facility], [address], [place], [address], 02/12/2024 14:26:59 CMP, serum or plasma 2023 024 [facility], [address], [place], [address], 11/13/2023 17:55:22 TSH, serum or plasma 2023 024 [facility], [address], [place], [address], 02/12/2024 13:53:18 CBC w/ auto diff 2023 024 [facility], [address], [place], [address], 02/12/2024 12:08:16 T4, free, serum 2023 024 [facility], [address], [place], [address], 02/12/2024 13:48:39 vitamin D, 25-hydrox y, total, serum 2023 024 [email or web address] [address] [facility], [address], [place], [address], 03/13/2024 17:34:44 HbA1c (hemoglob in A1c), blood 2023 024 [email or web address] [facility], [address], [place], [address], 03/13/2024 17:34:43 microalbu min, urine 2023 024 [facility], [address], [place], [address], 02/12/2024 13:29:42 lipid panel, serum 2022 023 [email or web address] [facility], [address], [place], [address], 09/22/2023 11:39:21 CMP, serum or plasma 2022 023 [facility], [address], [place], [address], 09/22/2023 11:39:21 TSH, serum or plasma 2022 023 [facility], [address], [place], [address], 09/22/2023 11:39:21 CBC w/ auto diff 2022 023 [facility], [address], [place], [address], 09/22/2023 11:39:08 T4, free, serum 2022 023 [email or web address] [facility], [address], [place], [address], 09/22/2023 11:39:21 vitamin D, 25-hydrox y, total, serum 2022 023 [facility], [address], [place], [address], 09/22/2023 11:38:50 HbA1c (hemoglob in A1c), blood 2022 023 [facility], [address], [place], [address], 09/22/2023 11:38:26 microalbu min, urine 2022 023 [email or web address] [facility], [address], [place], [address], 09/22/2023 11:39:20 Referral podiatris t referral - Please call patient to schedule an appointme nt. Thank you. 2024 025 SC[facility] Barrientos DPM, [address] [facility], [address], [place], [address], 11/13/2024 16:22:10 cardiolog ist referral - Please call patient to schedule an appointme nt. Thank you. 2024 025 DAILY Malave MD, [address] [facility], [address], [place], [address], 11/13/2024 17:40:33 hematolog ist referral 2023 024 [email or web address] Reynaldo Tatum MD, [address], [place], [address], 06/03/2024 11:55:45 gastroent erologist referral 2023 024 [email or web address] Gerry White MD, [address] [facility], [place], [address], 06/03/2024 11:55:45 pulmonolo gist referral 2023 024 [email or web address] Larry Wyman MD, [address] [facility], [place], [address], 07/08/2024 16:26:51 podiatris t referral 2023 024 [email or web address] Marcell Barrientos DPM, [address] [facility], [address], [place], [address], 06/03/2024 11:55:45 hematolog ist referral 2023 024 Reynaldo Tatum MD, [address], [place], [address], 10/14/2024 09:17:26 gastroent erologist referral 2023 024 [email or web address] Gerry White MD, [address] [place], [address], 08/12/2024 13:43:49 pulmonolo gist referral 2023 024 [email or web address] Larry Wyman MD, [address] [place], [address], 04/17/2024 08:53:46 podiatris t referral 2023 024 Marcell Barrientos DPM, [address] [facility], [address], [place], [address], 08/12/2024 13:04:04 hematolog ist referral 2023 024 [email or web address] Reynaldo Tatum MD, [address], [place], [address], 10/11/2023 13:40:44 gastroent erologist referral 2023 024 Gerry White MD, [address] [place], [address], 04/10/2024 08:54:12 otolaryng ologist referral 2023 024 [email or web address] Garrett Jorgensen MD, [address] [facility] , [address], [place], [address], 09/11/2024 09:43:14 podiatris t referral 2023 024 [facility]cell [facility]os [facility], [address], [address], [place], [address], 09/11/2024 09:43:14 hematolog ist referral 2022 023 Reynaldo Tatum MD, [address], [place], [address], 04/18/2023 16:40:39 otolaryng ologist referral 2022 023 [email or web address] Gus Wayne, [address] [facility], [place], [address], 09/22/2023 11:37:58 podiatris t referral 2022 023 Marcell Barrientos DPM, [address], [address], [place], [address], 09/22/2023 11:37:37 Procedures None recorded. Surgeries None recorded. Imaging MAMMO, screening , digital, bilateral - Please call patient to schedule. 2024 025 [facility], [address], [place], [address], 11/14/2024 08:50:41 DEXA, axial skeleton - Please call patient to schedule. 2024 025 [facility], [address], [place], [address], 11/14/2024 08:50:41 US, thyroid 2024 025 [email or web address] [facility], [address], [place], [address], 11/14/2024 08:40:28 DEXA, axial skeleton [address] ([facility]), [address] [place], [address], 06/03/2024 11:55:45 US, thyroid [address] ([facility]), [address] [place], [address], 06/03/2024 11:55:45 DEXA, axial skeleton [address] ([facility]), [address] [place], [address], 08/12/2024 12:38:14 MAMMO, screening , digital, bilateral [facility] [address] [place], [address], 02/12/2024 15:49:19 DEXA, axial skeleton [address] ([facility]), [address] [place], [address], 03/13/2024 17:15:35 MAMMO, screening , digital, bilateral [address] ([facility]), [address] [place], [address], 11/06/2023 09:57:29 DEXA, axial skeleton [email or web address] [place] [address] ([facility]), [address] [place], [address], 09/22/2023 11:37:01 Medication Orders cholecalc iferol (vitamin D3) 1,250 mcg (50,000 unit) capsule [email or web address] [facility], [address], [place], [place], [id number], 11/13/2024 15:44:56 Vascepa 1 gram capsule [email or web address] [facility] [address] [facility], [address], [place], [place], [id number], 11/13/2024 15:46:52 fluticaso ne propionat e 50 mcg/actua tion nasal spray,prakash pension 2023 024 [facility], [address], [place], [place], [id number], 02/12/2024 16:12:06 cetirizin e 10 mg tablet 2023 024 [email or web address] [facility], [address] [place], [id number], 06/03/2024 10:41:05 Vascepa 1 gram capsule [email or web address] [facility], [address], [place], [place], [id number], 11/13/2024 15:46:52 Patient TargetsNo targets recorded. Patient Instructions Encounter Date Encounter Id Patient Instructions Last Modified By Organization Details Last Modified Time 03/20/2023 [id number] diabetic eye exam* [email or web address] Not availa ble 09/22/2023 11:37:13 09/13/2023 [id number] diabetic eye exam* [email or web address] Not avail able 03/13/2024 17:15:44 Due to the COVID -19 (Novel Coronavirus) pandemic, it is within this context (and with the understanding that this method of patient encounter is in the patient s best interest as well as the health and safety of other patients and the public) that telehealth is being provided for this patient encounter rather than a msrz-mo-hekr visit. This patient encounter is appropriate at this time. This patient has been advised of the potential risks and limitations of this mode of treatment (including, but not limited to, the absence of in-person examination) and has agreed to be treated in a remote fashion despite these risks. Any and all of the patient s/patient s family s questions on this issue have been answered, and I have made no promises or guarantees to the patient. The patient has also been advised to contact this office for worsening conditions or problems, and seek emergency medical treatment and/or call 911 if the patient deems either necessary. HPI and/or vitals, if listed, were provided by the patient. Not available 09/13/2023 10:11:14 02/12/2024 [id number] dementia rating scale-2* [email or web address] 2 Not available 02/12/2024 16:11:51 alcohol misuse* [email or web address] 2 Not available 02/12/2024 16:11:51 depression screening* [email or web address] 2 Not available 02/12/2024 16:11:50 Timed Up and Go test (TUG)* [email or web address] 2 Not available 02/12/2024 16:11:51 multi-dimensiona l health assessment questionnaire* [email or web address] 2 Not available 02/12/2024 16:11:50 advance directiv es: care instructions [email or web address] 2 Not available 02/12/2024 16:11:50 advance care planning: care instructions [email or web address] 2 Not available 02/12/2024 16:11:50 [place] Advance Directives [email or web address] 2 Not available 02/12/2024 16:11:52 Personalized a lt Plan and Screening Recommendations Advance Directives - Do you have one? No You have indicated that you are capable of preparing your advance care directive Advance Directives - Do we have your advance directive on file in your health record? Primary Prevention/Interven tion (prevents or decreases the chance of common diseases from occurring) Smoking Risk: Non Smoker Alcohol Misuse Screening: Negative Weight: Appropriate Overwei ght continue your current weight loss efforts try to lose 5% of your body weight try to lose 10% of your body weight Physical activity: Need more exercise/physical activity decrease sitting time to no more than 5hr/day Nutrition: Good Average Refer to attached handout Heart-Healthy Diet: After Your Visit Refer to attached handout DASH Diet: After Your Visit Fall Risk (screened today): High Refer to attached handout Preventing Falls: After your Visit Vaccines Pneumococcal: Ordered Recommended today Influenza: Your next one in the fall of this year Chronic Disease Risks Stroke: Low Risk Intermediate Risk Heart Attack: Low risk Intermediate Risk Clogging of the Arteries: High risk Diabetes: High Risk Active diagnosis, Continue current treatment plan Secondary Prevention/Interven tion (detects treatable diseases before they may cause symptoms, disability, or ) Breast Cancer Screening with mammogram: Your next mammogram: Ordered Cervical/Uterine/Ov mariya Cancer Screening: Your next PAP/pelvic in: Referral to audit associate Osteoporosis Screening: Your next DEXA in: Ordered Colon Cancer Screening: Colonoscopy Date Screening Last Performed: 01/31/2023 Eye Disease Screening: Ordered Recommended today Dementia Risk: Low I have no recommendations Depression Screening: Negative Positive Active diagnosis, Continue current treatment plan [email or web address] Not available 02/12/2024 16:02:44 Reason for Referral Cephalometric Technician Referral for Type 2 diabetes mellitus without complication Referring Physician: Jose Manuel Quinones Internal Medicine, Encounter Date: 03/20/2023 Social Organization Professor Referral fo r Obstructive sleep apnea syndrome Referring Physician: Trista Garsia Medicine, Encounter Date: 03/20/2023 Referring Physician: Trista Garsia, Encounter Date: 03/20/2023 Cephalometric Technician Referral for Type 2 diabetes mellitus without complication Referring Physician: Jose Manuel Quinones Internal Isaac, Encounter Date: 09/13/2023 Social Organization Professor Referral fo r Obstructive sleep apnea syndrome Referring Physician: Trista Garsia, Encounter Date: 09/13/2023 Referring Physician: Trista Garsia, Encounter Date: 09/13/2023 Valve Setter Referral for Increased liver function Referring Physician: Trista Garsia, Encounter Date: 09/13/2023 Cephalometric Technician Referral for Type 2 diabetes mellitus without complication Referring Physician: Jose Manuel Quinones Internal Medicine, Encounter Date: 02/12/2024 Referring Physician: Trista Garsia Medicine, Encounter Date: 02/12/2024 Valve Setter Referral for Increased liver function Referring Physician: Jose Manuel Quinones Internal Medicine, Encounter Date: 02/12/2024 Figure Model Referral for O bstructive sleep apnea syndrome Referring Physician: Jose Manuel Quinones Internal Medicine, Encounter Date: 02/12/2024 Cephalometric Technician Referral for Type 2 diabetes mellitus without complication Referring Physician: Jose Manuel Quinones Internal Medicine, Encounter Date: 06/03/2024 Referring Physician: Jose Manuel Quinones Internal Medicine, Encounter Date: 06/03/2024 Valve Setter Referral for Increased liver function Referring Physician: Trista Garsia Medicine, Encounter Date: 06/03/2024 Figure Model Referral for O bstructive sleep apnea syndrome Referring Physician: Trista Garsia Medicine, Encounter Date: 06/03/2024 Cephalometric Technician Referral for Type 2 diabetes mellitus without complication Please call patient to schedule an appointment. Thank you. Referring Physician: Trista Garsia Medicine, Encounter Date: 11/13/2024 Pump Assembler Referral for Co ronary arteriosclerosis Please call patient to schedule an appointment. Thank you. Referring Physician: Trista Garsia Medicine, Encounter Date: 11/13/2024 Results Created Date Observation Date Name Description Value Unit Range Abnormal Flag Note LastModifiedBy Organization Detail LastModifiedTime 05/30/2006/23/2023 FUNGU S CULTU RE WITH STAIN fungus stain Final report abnormal Not Available [facility] (Lab) [address] [place], [address], 06/23/2023 18:08:57 05/30/2006/23/2023 FUNGU S CULTU RE WITH STAIN result 1 Hyphae observ ed abnormal Not Available [facility] (Lab) [address] [place], [address], 06/23/2023 18:08:57 05/30/2006/23/2023 FUNGU S CULTU RE WITH STAIN culture, fungal Final report abnormal Not Available [facility] (Lab) [address] [place], [address], 06/23/2023 18:08:57 05/30/2006/23/2023 FUNGU S CULTU RE WITH STAIN result 1 Commen t abnormal Asper gillu s roxana us compl ex Not Available [facility] (Lab) [address] [place], [address], 06/23/2023 18:08:57 05/30/2006/23/2023 FUNGU S CULTU RE WITH STAIN result 2 Commen t abnormal DEMAT IACEO US . STERI LE MYCEL IA Conta ct lab if furth er ID of mold by seque ncing neede d Not Available [facility] (Lab) [address] [place], [address], 06/23/2023 18:08:57 05/30/2006/23/2023 FUNGU S CULTU RE WITH STAIN result 3 Commen t abnormal STERI LE MYCEL IA Conta ct lab if furth er ID of mold by seque ncing neede d Perfo rmed at: - [facility] [address] Lab Direc tor: Jaswinder arrieta PhD, Phone : [phone] Not Available [facility] (Lab) [address] [place], [address], 06/23/2023 18:08:57 09/08/19 24 09/08/2023 COMPR EHENS FLORINDA METAB OLIC PANEL sodium 140 mmol/ L 137-14 5 Not Available [facility] (Lab) [address] [place], [address], 09/08/2023 14:21:42 09/08/19 24 09/08/2023 COMPR EHENS FLORINDA METAB OLIC PANEL potassium 4.7 mmol/ L 3.5-5. 1 Not Available [facility] (Lab) [address] [place], [address], 09/08/2023 14:21:42 09/08/19 24 09/08/2023 COMPR EHENS FLORINDA METAB OLIC PANEL chloride 99 mmol/ L 98-107 Not Available [facility] (Lab) [address] [place], [address], 09/08/2023 14:21:42 09/08/19 24 09/08/2023 COMPR EHENS FLORINDA METAB OLIC PANEL carbon dioxide 30 mmol/ L 22-30 Not Available [facility] (Lab) [address] [place], [address], 09/08/2023 14:21:42 09/08/19 24 09/08/2023 COMPR EHENS FLORINDA METAB OLIC PANEL anion gap 15.7 mmol/ L 14-22 Not Available [facility] (Lab) [address] [place], [address], 09/08/2023 14:21:42 09/08/19 24 09/08/2023 COMPR EHENS FLORINDA METAB OLIC PANEL glucose 133 mg/dL 70-99 high Not Available [facility] (Lab) [address] [place], [address], 09/08/2023 14:21:42 09/08/19 24 09/08/2023 COMPR EHENS FLORINDA METAB OLIC PANEL BUN 13 mg/dL 8-19 Not Available [facility] (Lab) [address] [place], [address], 09/08/2023 14:21:42 09/08/19 24 09/08/2023 COMPR EHENS FLORINDA METAB OLIC PANEL creatinine 0.90 mg/dL 0.66-1 .25 Not Available [facility] (Lab) [address] [place], [address], 09/08/2023 14:21:42 09/08/19 24 09/08/2023 COMPR EHENS FLORINDA METAB OLIC PANEL GFR >60 Refer ence Range : [place] ge GFR Healt hy Adult : >60 mL/mi n/1.7 3 m2 Chron ic Kidne y Disea se: 15-60 mL/mi n/1.7 3 m2 Kidne y Failu re: <15/m L/min /1.73 m2 www.n iddk. nih.g ov The MDRD study equat ion has not been valid ated in child nhi <18 years of age; pregn ant women ; the elder ly >85 years of age; or in some racia l or ethni c subgr oups, such as Hiswa nics. Outsi de the valid ated bhupendra eters , estim ated GFR is less accur ate, requi ring clini chitra judgm ent on a case- by-ca se basis . Clini chitra inter preta tion for other races and ages must be made by the clini nidia. The MDRD study equat ion has not been valid ated for the evalu ation of serum creat inine relat ed to nutri darius l statu s or medic ation usage . For perso ns <18 years of age, a pedia tric GFR calcu lator is avail able on the F websi te: https ://escobar w.kid quinn.o rg/pr ofess ional s/kdo qi/gf r_cal culat or Not Available [facility] (Lab) [address] [place], [address], 09/08/2023 14:21:42 09/08/19 24 09/08/2023 COMPR EHENS FLORINDA METAB OLIC PANEL alkaline phosphatase 132 U/L 38-126 high Not Available [facility] (Lab) [address] [place], [address], 09/08/2023 14:21:42 09/08/19 24 09/08/2023 COMPR EHENS FLORINDA METAB OLIC PANEL alanine aminotransfe rase 36 U/L 0-35 high Not Available [facility] (Lab) [address] [place], [address], 09/08/2023 14:21:42 09/08/19 24 09/08/2023 COMPR EHENS FLORINDA METAB OLIC PANEL aspartate aminotransfe rase 24 U/L 15-37 Not Available [facility] (Lab) [address] [place], [address], 09/08/2023 14:21:42 09/08/19 24 09/08/2023 COMPR EHENS FLORINDA METAB OLIC PANEL bilirubin, total 0.40 mg/dL 0.20-1 .30 Not Available [facility] (Lab) [address] [place], [address], 09/08/2023 14:21:42 09/08/19 24 09/08/2023 COMPR EHENS FLORINDA METAB OLIC PANEL calcium 9.6 mg/dL 8.4-10 .2 Not Available [facility] (Lab) [address] [place], [address], 09/08/2023 14:21:42 09/08/19 24 09/08/2023 COMPR EHENS FLORINDA METAB OLIC PANEL total protein 7.1 g/dL 6.3-8. 2 Not Available [facility] (Lab) [address] [place], [address], 09/08/2023 14:21:42 09/08/19 24 09/08/2023 COMPR EHENS FLORINDA METAB OLIC PANEL albumin 4.0 g/dL 3.0-4. 4 Not Available [facility] (Lab) [address] [place], [address], 09/08/2023 14:21:42 09/08/19 24 09/08/2023 COMPR EHENS FLORINAD METAB OLIC PANEL globulin 3.1 g/dL 2.6-4. 2 Not Available [facility] (Lab) [address] [place], [address], 09/08/2023 14:21:42 09/08/19 24 09/08/2023 COMPR EHENS FLORINDA METAB OLIC PANEL A/G ratio 1.3 ratio 1.0-2. 0 Not Available [facility] (Lab) [address] [place], [address], 09/08/2023 14:21:42 09/08/19 24 09/08/2023 LIPID PANEL cholesterol 179 mg/dL 140-19 9 NIH AMADA NSUS RECOM MENDA TION FOR JYOTI STERO L: ADULT CHILD LOW RISK: <200 <170 BORDE RLINE : <200- 239 ----- HIGH RISK: >240 >200 Not Available [facility] (Lab) [address] [place], [address], 09/08/2023 14:21:51 09/08/19 24 09/08/2023 LIPID PANEL triglyceride s 155 mg/dL 0-150 high NIH AMADA NSUS REPOR T RECOM MENDA TION FOR TRIGL YCERI MILKA: ADULT CHILD LOW RISK: <150 ----- BODER LINE: 150-1 99 ----- HIGH RISK: >200 ----- Not Available [facility] (Lab) [address] [place], [address], 09/08/2023 14:21:51 09/08/19 24 09/08/2023 LIPID PANEL HDL cholesterol 63 mg/dL 40- Not Available [facility] (Lab) [address] [place], [address], 09/08/2023 14:21:51 09/08/19 24 09/08/2023 LIPID PANEL LDL cholesterol, calculated 85 mg/dL 0-130 NIH AMADA NSUS REPOR T RECOM MENDA TIONS FOR LDL: ADULT CHILD LOW RISK <130 <110 (OPTI MAL LDL) <100 ----- BORDE RLINE : 130-1 59 ----- HIGH RISK: >160 >130 A TRIGL YCERI DE RESUL T >400 INVAL IDATE S THE CALCU LATIO N FOR LDL FRACT IONAT ION - THE LDL RESUL T WILL NOT BE REPOR ENRIQUETA. Not Available [facility] (Lab) [address] [place], [address], 09/08/2023 14:21:51 09/08/19 24 09/08/2023 T4 FREE free T4 0.98 NG/dL 0.78-2 .19 Not Available [facility] (Lab) [address] [place], [address], 09/08/2023 14:22:46 09/08/19 24 09/08/2023 TSH thyroid-stim ulating hormone 3.950 uIU/m L 0.465- 4.680 Not Available [facility] (Lab) [address] [place], [address], 09/08/2023 14:23:53 09/08/19 24 09/08/2023 MICRO ALBUM IN RANDO M URINE microalbumin , urine <6.0 mg/L 0.0-16 .6 Not Available [facility] (Lab) [address] [place], [address], 09/08/2023 14:29:29 09/08/19 24 09/08/2023 VITAM IN D 25-HY DROXY [id number] 25.5 NG/mL 30-100 low Vitam in D Statu s: Defic ient: <20 ng/mL Insuf ficie nt: 20-29 ng/mL Suffi cient : 30-10 0 ng/mL Not Available [facility] (Lab) [address] [place], [address], 09/08/2023 14:38:01 09/08/19 24 09/08/2023 HEMOG LOBIN A1C HA1C 6.5 % 4.0-6. 0 high Diabe matthew Scree debbie Crite adan: <5.7% Consi stent with absen ce of diabe matthew 5.7-6 .4% Consi stent with incre ased risk for diabe matthew (pred iabet es) >OR=6 .5% Consi stent with diabe matthew REFER ENCE: Diabe matthew Care 2015, 39( ppl.1 ):s13 -s22 Not Available [facility] (Lab) [address] [place], [address], 09/08/2023 14:58:56 02/12/20 24 02/12/2024 CBC/C OMPLE TE BLD COUNT W/DIF F white blood cells 11.8 x10'3 /uL 4.2-10 .8 high Not Available [facility] (Lab) [address] [place], [address], 02/12/2024 12:08:15 02/12/20 24 02/12/2024 CBC/C OMPLE TE BLD COUNT W/DIF F red blood cells 4.69 x10'6 /uL 3.80-5 .20 Not Available [facility] (Lab) [address] [place], [address], 02/12/2024 12:08:15 02/12/20 24 02/12/2024 CBC/C OMPLE TE BLD COUNT W/DIF F hemoglobin 13.0 g/dL 12.0-1 5.6 Not Available [facility] (Lab) [address] [place], [address], 02/12/2024 12:08:15 02/12/20 24 02/12/2024 CBC/C OMPLE TE BLD COUNT W/DIF F hematocrit 41.2 % 35.7-4 5.7 Not Available [facility] (Lab) [address] [place], [address], 02/12/2024 12:08:15 02/12/20 24 02/12/2024 CBC/C OMPLE TE BLD COUNT W/DIF F mean red cell volume 87.8 fL 82.0-9 9.0 Not Available [facility] (Lab) [address] [place], [address], 02/12/2024 12:08:15 02/12/20 24 02/12/2024 CBC/C OMPLE TE BLD COUNT W/DIF F mean red cell hemoglobin 27.7 pg 27.0-3 3.0 Not Available [facility] (Lab) [address] [place], [address], 02/12/2024 12:08:15 02/12/20 24 02/12/2024 CBC/C OMPLE TE BLD COUNT W/DIF F mean RBC HGB concentratio n 31.6 g/dL 31.0-3 6.0 Not Available [facility] (Lab) [address] [place], [address], 02/12/2024 12:08:15 02/12/20 24 02/12/2024 CBC/C OMPLE TE BLD COUNT W/DIF F red cell distribution width 15.2 % 11.8-1 5.5 Not Available [facility] (Lab) [address] [place], [address], 02/12/2024 12:08:15 02/12/20 24 02/12/2024 CBC/C OMPLE TE BLD COUNT W/DIF F platelets 555 x10'3 /uL 150-40 0 high Not Available [facility] (Lab) [address] [place], [address], 02/12/2024 12:08:15 02/12/20 24 02/12/2024 CBC/C OMPLE TE BLD COUNT W/DIF F mean platelet volume 8.9 fL 9.0-12 .4 low Not Available [facility] (Lab) [address] [place], [address], 02/12/2024 12:08:15 02/12/20 24 02/12/2024 CBC/C OMPLE TE BLD COUNT W/DIF F neutrophils 71.1 % 39.0-7 2.0 Not Available [facility] (Lab) [address] [place], [address], 02/12/2024 12:08:15 02/12/20 24 02/12/2024 CBC/C OMPLE TE BLD COUNT W/DIF F lymphocytes 19.6 % 16.0-4 7.0 Not Available [facility] (Lab) [address] [place], [address], 02/12/2024 12:08:15 02/12/20 24 02/12/2024 CBC/C OMPLE TE BLD COUNT W/DIF F monocytes 6.8 % 5.0-12 .0 Not Available [facility] (Lab) [address] [place], [address], 02/12/2024 12:08:15 02/12/20 24 02/12/2024 CBC/C OMPLE TE BLD COUNT W/DIF F eosinophils 1.4 % 1.0-7. 0 Not Available [facility] (Lab) [address] [place], [address], 02/12/2024 12:08:15 02/12/20 24 02/12/2024 CBC/C OMPLE TE BLD COUNT W/DIF F basophils 0.6 % 0.0-2. 0 Not Available [facility] (Lab) [address] [place], [address], 02/12/2024 12:08:15 02/12/20 24 02/12/2024 CBC/C OMPLE TE BLD COUNT W/DIF F immature granulocytes 0.5 % 0.00-0 .50 Not Available [facility] (Lab) [address] [place], [address], 02/12/2024 12:08:15 02/12/20 24 02/12/2024 CBC/C OMPLE TE BLD COUNT W/DIF F neutrophils, absolute count 8.41 x10'3 /uL 1.5-8. 0 high Not Available [facility] (Lab) [address] [place], [address], 02/12/2024 12:08:15 02/12/20 24 02/12/2024 CBC/C OMPLE TE BLD COUNT W/DIF F lymphocytes, absolute count 2.32 x10'3 /uL 1.07-3 .43 Not Available [facility] (Lab) [address] [place], [address], 02/12/2024 12:08:15 02/12/20 24 02/12/2024 CBC/C OMPLE TE BLD COUNT W/DIF F monocytes, absolute count 0.81 x10'3 /uL 0.29-0 .99 Not Available [facility] (Lab) [address] [place], [address], 02/12/2024 12:08:15 02/12/20 24 02/12/2024 CBC/C OMPLE TE BLD COUNT W/DIF F eosinophils, absolute count 0.16 x10'3 /uL 0.02-0 .53 Not Available [facility] (Lab) [address] [place], [address], 02/12/2024 12:08:15 02/12/20 24 02/12/2024 CBC/C OMPLE TE BLD COUNT W/DIF F basophils, absolute count 0.07 x10'3 /uL 0.01-0 .08 Not Available [facility] (Lab) [address] [place], [address], 02/12/2024 12:08:15 02/12/20 24 02/12/2024 CBC/C OMPLE TE BLD COUNT W/DIF F immature granulocytes ,absolute 0.06 x10'3 /uL 0.00-0 .05 high Not Available [facility] (Lab) [address] [place], [address], 02/12/2024 12:08:15 02/12/20 24 02/12/2024 CBC/C OMPLE TE BLD COUNT W/DIF F nucleated red blood cells 0.0 % -0 Not Available [facility] (Lab) [address] [place], [address], 02/12/2024 12:08:15 02/12/20 24 02/12/2024 CBC/C OMPLE TE BLD COUNT W/DIF F NRBC# 0.00 x10'3 /uL Not Available [facility] (Lab) [address] [place], [address], 02/12/2024 12:08:15 02/12/20 24 02/12/2024 MICRO ALBUM IN RANDO M URINE microalbumin , urine 26.2 mg/L 0.0-16 .6 high Not Available [facility] (Lab) [address] [place], [address], 02/12/2024 13:29:42 02/12/20 24 02/12/2024 VITAM IN D 25-HY DROXY [id number] 36.3 NG/mL 30-100 Vitam in D Statu s: Defic ient: <20 ng/mL Insuf ficie nt: 20-29 ng/mL Suffi cient : 30-10 0 ng/mL Not Available [facility] (Lab) [address] [place], [address], 02/12/2024 13:48:29 02/12/20 24 02/12/2024 T4 FREE free T4 1.16 NG/dL 0.78-2 .19 Not Available [facility] (Lab) [address] [place], [address], 02/12/2024 13:48:38 02/12/20 24 02/12/2024 TSH thyroid-stim ulating hormone 3.850 uIU/m L 0.465- 4.680 Not Available [facility] (Lab) [address] [place], [address], 02/12/2024 13:53:18 02/12/20 24 02/12/2024 HEMOG LOBIN A1C HA1C 6.9 % 4.0-6. 0 high Diabe matthew Scree debbie Crite daan: <5.7% Consi stent with absen ce of diabe matthew 5.7-6 .4% Consi stent with incre ased risk for diabe matthew (pred iabet es) >OR=6 .5% Consi stent with diabe matthew REFER ENCE: Diabe matthew Care 2016, 39([place]son ppl.1 ):s13 -s22 Not Available [facility] (Lab) [address] [place], [address], 02/12/2024 14:00:30 02/12/20 24 02/12/2024 LIPID PANEL cholesterol 166 mg/dL 140-19 9 NIH AMADA NSUS RECOM MENDA TION FOR JYOTI STERO L: ADULT CHILD LOW RISK: <200 <170 BORDE RLINE : <200- 239 ----- HIGH RISK: >240 >200 Not Available [facility] (Lab) [address] [place], [address], 02/12/2024 14:26:59 02/12/20 24 02/12/2024 LIPID PANEL triglyceride s 204 mg/dL 0-150 high NIH AMADA NSUS REPOR T RECOM MENDA TION FOR TRIGL YCERI MILKA: ADULT CHILD LOW RISK: <150 ----- BODER LINE: 150-1 99 ----- HIGH RISK: >200 ----- Not Available [facility] (Lab) [address] [place], [address], 02/12/2024 14:26:59 02/12/20 24 02/12/2024 LIPID PANEL HDL cholesterol 65 mg/dL 40- Not Available [facility] (Lab) [address] [place], [address], 02/12/2024 14:26:59 02/12/20 24 02/12/2024 LIPID PANEL LDL cholesterol, calculated 60 mg/dL 0-130 NIH AMADA NSUS REPOR T RECOM MENDA TIONS FOR LDL: ADULT CHILD LOW RISK <130 <110 (OPTI MAL LDL) <100 ----- BORDE RLINE : 130-1 59 ----- HIGH RISK: >160 >130 A TRIGL YCERI DE RESUL T >400 INVAL IDATE S THE CALCU LATIO N FOR LDL FRACT IONAT ION - THE LDL RESUL T WILL NOT BE REPOR ENRIQUETA. Not Available [facility] (Lab) [address] [place], [address], 02/12/2024 14:26:59 02/12/20 24 02/12/2024 COMPR EHENS FLORINDA METAB OLIC PANEL sodium 138 mmol/ L 137-14 5 Not Available [facility] (Lab) [address] [place], [address], 02/12/2024 14:27:14 02/12/20 24 02/12/2024 COMPR EHENS FLORINDA METAB OLIC PANEL potassium 4.7 mmol/ L 3.5-5. 1 Not Available [facility] (Lab) [address] [place], [address], 02/12/2024 14:27:14 02/12/20 24 02/12/2024 COMPR EHENS FLORINDA METAB OLIC PANEL chloride 104 mmol/ L 98-107 Not Available [facility] (Lab) [address] [place], [address], 02/12/2024 14:27:14 02/12/20 24 02/12/2024 COMPR EHENS FLORINDA METAB OLIC PANEL carbon dioxide 26 mmol/ L 22-30 Not Available [facility] (Lab) [address] [place], [address], 02/12/2024 14:27:14 02/12/20 24 02/12/2024 COMPR EHENS FLORINDA METAB OLIC PANEL anion gap 12.7 mmol/ L 14-22 low Not Available [facility] (Lab) [address] [place], [address], 02/12/2024 14:27:14 02/12/20 24 02/12/2024 COMPR EHENS FOLRINDA METAB OLIC PANEL glucose 165 mg/dL 70-99 high Not Available [facility] (Lab) [address] [place], [address], 02/12/2024 14:27:14 02/12/20 24 02/12/2024 COMPR EHENS FLORINDA METAB OLIC PANEL BUN 14 mg/dL 8-19 Not Available [facility] (Lab) [address] [place], [address], 02/12/2024 14:27:14 02/12/20 24 02/12/2024 COMPR EHENS FLORINDA METAB OLIC PANEL creatinine 0.88 mg/dL 0.66-1 .25 Not Available [facility] (Lab) [address] [place], [address], 02/12/2024 14:27:14 02/12/20 24 02/12/2024 COMPR EHENS FLORINDA METAB OLIC PANEL GFR >60 Refer ence Range : [place] GFR Healt hy Adult : >60 mL/mi n/1.7 3 m2 Chron ic Kidne y Disea se: 15-60 mL/mi n/1.7 3 m2 Kidne y Failu re: <15/m L/min /1.73 m2 www.n iddk. nih.g ov The MDRD study equat ion has not been valid ated in child nhi <18 years of age; pregn ant women ; the elder ly >85 years of age; or in some racia l or ethni c subgr oups, such as Hispa nics. Outsi de the valid ated bhupendra eters , estim ated GFR is less accur ate, requi ring clini chitra judgm ent on a case- by-ca se basis . Clini chitra inter preta tion for other races and ages must be made by the clini nidia. The MDRD study equat ion has not been valid ated for the evalu ation of serum creat inine relat ed to nutri darius l statu s or medic ation usage . For perso ns <18 years of age, a pedia tric GFR calcu lator is avail able on the [facility] websi te: https ://ww w.kid quinn.o rg/pr ofess ional s/kdo qi/gf r_cal culat or Not Available [facility] (Lab) [address] [place], [address], 02/12/2024 14:27:14 02/12/20 24 02/12/2024 COMPR EHENS FLORINDA METAB OLIC PANEL alkaline phosphatase 142 U/L 38-126 high Not Available [facility] (Lab) [address] [place], [address], 02/12/2024 14:27:14 02/12/20 24 02/12/2024 COMPR EHENS FLORINDA METAB OLIC PANEL alanine aminotransfe rase 52 U/L 0-35 high Not Available [facility] (Lab) [address] [place], [address], 02/12/2024 14:27:14 02/12/20 24 02/12/2024 COMPR EHENS FLORINDA METAB OLIC PANEL aspartate aminotransfe rase 42 U/L 15-37 high Not Available [facility] (Lab) [address] [place], [address], 02/12/2024 14:27:14 02/12/20 24 02/12/2024 COMPR EHENS FLORINDA METAB OLIC PANEL bilirubin, total 0.60 mg/dL 0.20-1 .30 Not Available [facility] (Lab) [address] [place], [address], 02/12/2024 14:27:14 02/12/20 24 02/12/2024 COMPR EHENS FLORINDA METAB OLIC PANEL calcium 9.5 mg/dL 8.4-10 .2 Not Available [facility] (Lab) [address] [place], [address], 02/12/2024 14:27:14 02/12/20 24 02/12/2024 COMPR EHENS FLORINDA METAB OLIC PANEL total protein 7.4 g/dL 6.3-8. 2 Not Available [facility] (Lab) [address] [place], [address], 02/12/2024 14:27:14 02/12/20 24 02/12/2024 COMPR EHENS FLORINDA METAB OLIC PANEL albumin 4.3 g/dL 3.0-4. 4 Not Available [facility] (Lab) [address] [place], [address], 02/12/2024 14:27:14 02/12/20 24 02/12/2024 COMPR EHENS FLORINDA METAB OLIC PANEL globulin 3.1 g/dL 2.6-4. 2 Not Available [facility] (Lab) [address] [place], [address], 02/12/2024 14:27:14 02/12/20 24 02/12/2024 COMPR EHENS FLORINDA METAB OLIC PANEL A/G ratio 1.4 ratio 1.0-2. 0 Not Available [facility] (Lab) [address] [place], [address], 02/12/2024 14:27:14 05/30/20 24 05/30/2024 CBC/C OMPLE TE BLD COUNT W/DIF F white blood cells 9.6 x10'3 /uL 4.2-10 .8 Not Available [facility] (Lab) [address] [place], [address], 05/30/2024 14:46:06 05/30/2005/30/2024 CBC/C OMPLE TE BLD COUNT W/DIF F red blood cells 4.68 x10'6 /uL 3.80-5 .20 Not Available [facility] (Lab) [address] [place], [address], 05/30/2024 14:46:06 05/30/2005/30/2024 CBC/C OMPLE TE BLD COUNT W/DIF F hemoglobin 12.7 g/dL 12.0-1 5.6 Not Available [facility] (Lab) [address] [place], [address], 05/30/2024 14:46:06 05/30/2005/30/2024 CBC/C OMPLE TE BLD COUNT W/DIF F hematocrit 41.1 % 35.7-4 5.7 Not Available [facility] (Lab) [address] [place], [address], 05/30/2024 14:46:06 05/30/2005/30/2024 CBC/C OMPLE TE BLD COUNT W/DIF F mean red cell volume 87.8 fL 82.0-9 9.0 Not Available [facility] (Lab) [address] [place], [address], 05/30/2024 14:46:06 05/30/2005/30/2024 CBC/C OMPLE TE BLD COUNT W/DIF F mean red cell hemoglobin 27.1 pg 27.0-3 3.0 Not Available [facility] (Lab) [address] [place], [address], 05/30/2024 14:46:06 05/30/20 24 05/30/2024 CBC/C OMPLE TE BLD COUNT W/DIF F mean RBC HGB concentratio n 30.9 g/dL 31.0-3 6.0 low Not Available [facility] (Lab) [address] [place], [address], 05/30/2024 14:46:06 05/30/2005/30/2024 CBC/C OMPLE TE BLD COUNT W/DIF F red cell distribution width 14.5 % 11.8-1 5.5 Not Available [facility] (Lab) [address] [place], [address], 05/30/2024 14:46:06 05/30/2005/30/2024 CBC/C OMPLE TE BLD COUNT W/DIF F platelets 544 x10'3 /uL 150-40 0 high Not Available [facility] (Lab) [address] [place], [address], 05/30/2024 14:46:06 05/30/2005/30/2024 CBC/C OMPLE TE BLD COUNT W/DIF F mean platelet volume 8.8 fL 9.0-12 .4 low Not Available [facility] (Lab) [address] [place], [address], 05/30/2024 14:46:06 05/30/2005/30/2024 CBC/C OMPLE TE BLD COUNT W/DIF F neutrophils 67.3 % 39.0-7 2.0 Not Available [facility] (Lab) [address] [place], [address], 05/30/2024 14:46:06 05/30/20 24 05/30/2024 CBC/C OMPLE TE BLD COUNT W/DIF F lymphocytes 22.5 % 16.0-4 7.0 Not Available [facility] (Lab) [address] [place], [address], 05/30/2024 14:46:06 05/30/20 24 05/30/2024 CBC/C OMPLE TE BLD COUNT W/DIF F monocytes 8.0 % 5.0-12 .0 Not Available [facility] (Lab) [address] [place], [address], 05/30/2024 14:46:06 05/30/2005/30/2024 CBC/C OMPLE TE BLD COUNT W/DIF F eosinophils 1.4 % 1.0-7. 0 Not Available [facility] (Lab) [address] [place], [address], 05/30/2024 14:46:06 05/30/2005/30/2024 CBC/C OMPLE TE BLD COUNT W/DIF F basophils 0.5 % 0.0-2. 0 Not Available [facility] (Lab) [address] [place], [address], 05/30/2024 14:46:06 05/30/2005/30/2024 CBC/C OMPLE TE BLD COUNT W/DIF F immature granulocytes 0.3 % 0.00-0 .50 Not Available [facility] (Lab) [address] [place], [address], 05/30/2024 14:46:06 05/30/2005/30/2024 CBC/C OMPLE TE BLD COUNT W/DIF F neutrophils, absolute count 6.44 x10'3 /uL 1.5-8. 0 Not Available [facility] (Lab) [address] [place], [address], 05/30/2024 14:46:06 05/30/2005/30/2024 CBC/C OMPLE TE BLD COUNT W/DIF F lymphocytes, absolute count 2.16 x10'3 /uL 1.07-3 .43 Not Available [facility] (Lab) [address] [place], [address], 05/30/2024 14:46:06 05/30/2005/30/2024 CBC/C OMPLE TE BLD COUNT W/DIF F monocytes, absolute count 0.77 x10'3 /uL 0.29-0 .99 Not Available [facility] (Lab) [address] [place], [address], 05/30/2024 14:46:06 05/30/20 24 05/30/2024 CBC/C OMPLE TE BLD COUNT W/DIF F eosinophils, absolute count 0.13 x10'3 /uL 0.02-0 .53 Not Available [facility] (Lab) [address] [place], [address], 05/30/2024 14:46:06 05/30/2005/30/2024 CBC/C OMPLE TE BLD COUNT W/DIF F basophils, absolute count 0.05 x10'3 /uL 0.01-0 .08 Not Available [facility] (Lab) [address] [place], [address], 05/30/2024 14:46:06 05/30/2005/30/2024 CBC/C OMPLE TE BLD COUNT W/DIF F immature granulocytes ,absolute 0.03 x10'3 /uL 0.00-0 .05 Not Available [facility] (Lab) [address] [place], [address], 05/30/2024 14:46:06 05/30/2005/30/2024 CBC/C OMPLE TE BLD COUNT W/DIF F nucleated red blood cells 0.0 % -0 Not Available [facility] (Lab) [address] [place], [address], 05/30/2024 14:46:06 05/30/2005/30/2024 CBC/C OMPLE TE BLD COUNT W/DIF F NRBC# 0.00 x10'3 /uL Not Available [facility] (Lab) [address] [place], [address], 05/30/2024 14:46:06 05/30/2005/30/2024 COMPR EHENS FLORINDA METAB OLIC PANEL sodium 137 mmol/ L 137-14 5 Not Available [facility] (Lab) [address] [place], [address], 05/30/2024 14:58:33 05/30/20 24 05/30/2024 COMPR EHENS FLORINDA METAB OLIC PANEL potassium 4.3 mmol/ L 3.5-5. 1 Not Available [facility] (Lab) [address] [place], [address], 05/30/2024 14:58:33 05/30/2005/30/2024 COMPR EHENS FLORINDA METAB OLIC PANEL chloride 104 mmol/ L 98-107 Not Available [facility] (Lab) [address] [place], [address], 05/30/2024 14:58:33 05/30/20 24 05/30/2024 COMPR EHENS FLORINDA METAB OLIC PANEL carbon dioxide 25 mmol/ L 22-30 Not Available [facility] (Lab) [address] [place], [address], 05/30/2024 14:58:33 05/30/20 24 05/30/2024 COMPR EHENS FLORINDA METAB OLIC PANEL anion gap 12.3 mmol/ L 14-22 low Not Available [facility] (Lab) [address] [place], [address], 05/30/2024 14:58:33 05/30/20 24 05/30/2024 COMPR EHENS FLORINDA METAB OLIC PANEL glucose 136 mg/dL 70-99 high Not Available [facility] (Lab) [address] [place], [address], 05/30/2024 14:58:33 05/30/20 24 05/30/2024 COMPR EHENS FLORINDA METAB OLIC PANEL BUN 10 mg/dL 8-19 Not Available [facility] (Lab) [address] [place], [address], 05/30/2024 14:58:33 05/30/2005/30/2024 COMPR EHENS FLORINDA METAB OLIC PANEL creatinine 0.88 mg/dL 0.66-1 .25 Not Available [facility] (Lab) [address] [place], [address], 05/30/2024 14:58:33 05/30/20 24 05/30/2024 COMPR EHENS FLORINDA METAB OLIC PANEL GFR >60 Refer ence Range : [place] [facility] GFR Healt hy Adult : >60 mL/mi n/1.7 3 m2 Chron ic Kidne y Disea se: 15-60 mL/mi n/1.7 3 m2 Kidne y Failu re: <15/m L/min /1.73 m2 www.n iddk. nih.g ov The MDRD study equat ion has not been valid ated in child nhi <18 years of age; pregn ant women ; the elder ly >85 years of age; or in some racia l or ethni c subgr oups, such as Hiswa nics. Outsi de the valid ated bhupendra eters , estim ated GFR is less accur ate, requi ring clini chitra judgm ent on a case- by-ca se basis . Clini chitra inter preta tion for other races and ages must be made by the clini nidia. The MDRD study equat ion has not been valid ated for the evalu ation of serum creat inine relat ed to nutri darius l statu s or medic ation usage . For perso ns <18 years of age, a pedia tric GFR calcu lator is avail able on the NKF websi te: https ://escobar ball.jayson somers/pr ebonyess ional s/kdo qi/gf r_cal culat or Not Available [facility] (Lab) [address] [place], [address], 05/30/2024 14:58:33 05/30/20 24 05/30/2024 COMPR EHENS FLORINDA METAB OLIC PANEL alkaline phosphatase 127 U/L 38-126 high Not Available [facility] (Lab) [address] [place], [address], 05/30/2024 14:58:33 05/30/20 24 05/30/2024 COMPR EHENS FLORINDA METAB OLIC PANEL alanine aminotransfe rase 58 U/L 0-35 high Not Available [facility] (Lab) [address] [place], [address], 05/30/2024 14:58:33 05/30/20 24 05/30/2024 COMPR EHENS FLORINDA METAB OLIC PANEL aspartate aminotransfe rase 44 U/L 15-37 high Not Available [facility] (Lab) [address] [place], [address], 05/30/2024 14:58:33 05/30/20 24 05/30/2024 COMPR EHENS FLORINDA METAB OLIC PANEL bilirubin, total 0.50 mg/dL 0.20-1 .30 Not Available [facility] (Lab) [address] [place], [address], 05/30/2024 14:58:33 05/30/20 24 05/30/2024 COMPR EHENS FLORINDA METAB OLIC PANEL calcium 9.8 mg/dL 8.4-10 .2 Not Available [facility] (Lab) [address] [place], [address], 05/30/2024 14:58:33 05/30/20 24 05/30/2024 COMPR EHENS FLORINDA METAB OLIC PANEL total protein 6.7 g/dL 6.3-8. 2 Not Available [facility] (Lab) [address] [place], [address], 05/30/2024 14:58:33 05/30/20 24 05/30/2024 COMPR EHENS FLORINDA METAB OLIC PANEL albumin 3.9 g/dL 3.0-4. 4 Not Available [facility] (Lab) [address] [place], [address], 05/30/2024 14:58:33 05/30/20 24 05/30/2024 COMPR EHENS FLORINDA METAB OLIC PANEL globulin 2.8 g/dL 2.6-4. 2 Not Available [facility] (Lab) [address] [place], [address], 05/30/2024 14:58:33 05/30/2005/30/2024 COMPR EHENS FLORINDA METAB OLIC PANEL A/G ratio 1.4 ratio 1.0-2. 0 Not Available [facility] (Lab) [address] [place], [address], 05/30/2024 14:58:33 05/30/2005/30/2024 LIPID PANEL cholesterol 169 mg/dL 140-19 9 NIH AMADA NSUS RECOM MENDA TION FOR JYOTI STERO L: ADULT CHILD LOW RISK: <200 <170 BORDE RLINE : <200- 239 ----- HIGH RISK: >240 >200 Not Available [facility] (Lab) [address] [place], [address], 05/30/2024 14:58:37 05/30/2005/30/2024 LIPID PANEL triglyceride s 214 mg/dL 0-150 high NIH AMADA NSUS REPOR T RECOM MENDA TION FOR TRIGL YCERI MILKA: ADULT CHILD LOW RISK: <150 ----- BODER LINE: 150-1 99 ----- HIGH RISK: >200 ----- Not Available [facility] (Lab) [address] [place], [address], 05/30/2024 14:58:37 05/30/20 24 05/30/2024 LIPID PANEL HDL cholesterol 55 mg/dL 40- Not Available [facility] (Lab) [address] [place], [address], 05/30/2024 14:58:37 05/30/20 24 05/30/2024 LIPID PANEL LDL cholesterol, calculated 71 mg/dL 0-130 NIH AMADA NSUS REPOR T RECOM MENDA TIONS FOR LDL: ADULT CHILD LOW RISK <130 <110 (OPTI MAL LDL) <100 ----- BORDE RLINE : 130-1 59 ----- HIGH RISK: >160 >130 A TRIGL YCERI DE RESUL T >400 INVAL IDATE S THE CALCU LATIO N FOR LDL FRACT IONAT ION - THE LDL RESUL T WILL NOT BE REPOR ENRIQUETA. Not Available [facility] (Lab) [address] [place], [address], 05/30/2024 14:58:37 05/30/2005/30/2024 T4 FREE free T4 1.13 NG/dL 0.78-2 .19 Not Available [facility] (Lab) [address] [place], [address], 05/30/2024 15:04:12 05/30/20 24 05/30/2024 MICRO ALBUM IN RANDO M URINE microalbumin , urine 53.2 mg/L 0.0-16 .6 high Not Available [facility] (Lab) [address] [place], [address], 05/30/2024 15:06:29 05/30/20 24 05/30/2024 VITAM IN D 25-HY DROXY [id number] 18.4 NG/mL 30-100 low Vitam in D Statu s: Defic ient: <20 ng/mL Insuf ficie nt: 20-29 ng/mL Suffi cient : 30-10 0 ng/mL Not Available [facility] (Lab) [address] [place], [address], 05/30/2024 15:06:55 05/30/20 24 05/30/2024 TSH thyroid-stim ulating hormone 2.000 uIU/m L 0.465- 4.680 Not Available [facility] (Lab) [address] [place], [address], 05/30/2024 15:07:50 05/30/20 24 05/30/2024 HEMOG LOBIN A1C HA1C 6.9 % 4.0-6. 0 high Diabe matthew Edmundo lewis Crite adan: <5.7% Consi stent with absen ce of diabe matthew 5.7-6 .4% Consi stent with incre ased risk for diabe matthew (pred iabet es) >OR=6 .5% Consi stent with diabe matthew REFER ENCE: Diabe matthew Care 2016, 39(Richardson ppl.1 ):s13 -s22 Not Available [facility] (Lab) [address] [place], [address], 05/30/2024 16:58:16 08/09/20 23 08/09/2023 CT, brain , w/o contr ast No observ ation record ed. [address] [facility], [place], [address], 10/02/2023 16:35:33 08/09/20 23 08/09/2023 CT, cervi chitra spine , w/o contr ast No observ ation record ed. [address] [address], [place], [address], 08/19/2024 21:15:17 10/06/19 24 10/06/2023 US, doppl er echoc ardio gram No observ ation record ed. [email or web address] [facility] [address], [place], [address], 03/11/2024 17:55:43 10/10/19 24 10/06/2023 CT, coron cecily calci um score No observ ation record ed. [email or web address] [facility] [address], [place], [address], 03/11/2024 17:59:55 10/31/19 24 10/31/2023 NM, myoca rdial perfu hitesh scan No observ ation record ed. [facility] [address], [place], [address], 03/11/2024 18:10:03 10/31/19 24 10/31/2023 MAMMO , scree debbie, digit al, bilat eral No observ ation record ed. [address] ([employer]) [address] [place], [address], 02/12/2024 15:50:02 10/31/19 24 10/31/2023 MAMMO , scree debbie, digit al, bilat eral No observ ation record ed. [address] ([employer]) [address] [place], [address], 02/12/2024 15:49:19 Result Notes None recorded. Problems Name Problem SNOMED Code Status Onset Date Resolution Date Notes Provider Name and Address Organization Details Recorded Time Hyperchole sterolemia 36009770 Active 2022 Not Available [facility] 3 22:50:34 Obstructiv e sleep apnea syndrome 48619514 Active 2022 Not Available [facility] 3 22:50:35 Type 2 diabetes mellitus without complicati on 955166494 Active 2022 Not Available [facility] 3 22:50:35 Thrombocyt osis 4708757 Active 2022 Not Available [facility] 3 22:50:35 Skin lesion 36988399 Active 2022 Not Available [facility] 3 22:50:35 Mechanical low back pain 687109630 Active 2022 Not Available [facility] 3 22:50:35 Essential hypertensi on 22844160 Active 2022 Not Available [facility] 3 22:50:35 Anemia 437687083 Active 2022 Not Available [facility] 3 22:50:35 Generalize d anxiety disorder 13595997 Active 2022 Not Available [facility] 3 22:50:34 Liver enzymes outside reference range 412684001 Active 2022 Not Available [facility] 3 22:50:34 Irritable bowel syndrome 58968494 Active 2022 Not Available [facility] 3 22:50:34 Proteinuri a 54271435 Active 2022 Not Available [facility] 3 22:50:35 Insomnia 578634775 Active 2022 Not Available [facility] 3 22:50:34 Hypothyroi dism 27086734 Active 2022 Not Available [facility] 3 22:50:35 Onychomyco sis of toenails 907065909 Active 2022 Not Available [facility] 3 22:50:35 Pure hyperchole sterolemia 428651879 Active 2022 Not Available [facility] 3 22:50:34 Increased liver function 10829314 Active 2022 Not Available [facility] 3 22:50:35 Cough 40013013 Active 2022 Not Available [facility] 3 22:50:35 Vaginitis 83512478 Active 2022 Not Available [facility] 3 22:50:35 Steatosis of liver 122760829 Active 2023 Bobbi Powell RN null, [facility] 4 13:11:38 Seasonal allergic rhinitis 987745017 Active 2023 Jose Manuel beltran MD [address], [address] , [facility] [facility] 4 16:09:55 Disorder of shoulder 182828461 Active Not Available [facility] 3 22:50:34 Disorder of trunk 777476668 Active Not Available [facility] 3 22:50:34 Blood chemistry outside reference range 676575144 Active Not Available [facility] 3 22:50:34 Radiothera py follow-up 792411594 Active Not Available [facility] 3 22:50:34 Non-alcoho lic fatty liver 453112908 Active 2021 Not Available [facility] 3 22:50:34 Anxiety state 110720454 Active Not Available [facility] 3 22:50:34 Osteoarthr itis of knee 073696309 Active Not Available [facility] 3 22:50:34 Shoulder joint pain 431378200 Active Not Available [facility] 3 22:50:34 Complainin g of - cough Completed Not Available [facility] 3 03:23:53 Low back pain 724941025 Active Not Available [facility] 3 22:50:35 Hypertrigl yceridemia 717234371 Active 2021 Not Available [facility] 3 22:50:35 Enthesopat hy of hip region 01685565 Active Not Available [facility] 3 22:50:35 Knee pain Active Not Available [facility] 3 22:50:35 Bronchitis 23176774 Active Not Available [facility] 3 22:50:35 Vitamin D deficiency 18619278 Active 2021 Not Available [facility] 3 22:50:35 Attention deficit hyperactiv ity disorder, predominan tly inattentiv e type 55831403 Active Not Available [facility] 3 22:50:35 Sinusitis 34047535 Active Not Available [facility] 3 22:50:35 Osteoarthr itis 378197033 Active Not Available [facility] 3 22:50:35 Upper respirator y infection 57001556 Active Not Available [facility] 3 22:50:35 Hyperlipid emia 55838301 Active Not Available [facility] 3 22:50:35 Joint pain 59884065 Active Not Available [facility] 3 22:50:35 Liver enzymes level above reference range 401206879 Active 11/03/ 2022 Not Available [facility] 3 22:50:35 Generalize d rash 424961334 Active 2021 Not Available [facility] 3 22:50:35 Hyperglyce rob 24437819 Active 2021 Not Available [facility] 3 22:50:35 Neck pain 75654521 Active Not Available [facility] 3 22:50:35 Iron deficiency anemia 99120569 Active Not Available [facility] 3 22:50:35 Coronary arterioscl erosis 04618700 Active 2023 Jose Manuel beltran MD [address], [address], [place], [address] , [employer] 18:31:00 Problem Notes None recorded. Procedures Surgical History Date Name Laterality Status Provider Name and Address Organization Details Recorded Time 02/12/20 24 Medicare Wellness CPT Code, subsequent completed Wilfrid Estrella LPN [employer] 02/12/2024 08:34:13 02/12/20 24 Advanced Care Planning completed Wilfrid Estrella LPN [employer] 02/12/2024 15:58:20 01/20/20 23 Nail Debridement completed Marcell Barrientos DPM [address], [address], [place], [address], [employer] 01/19/2023 11:51:02 03/06/20 18 Back Surgery completed Not Available [facility] 10/26/2022 03:15:41 11/22/19 18 Laparoscopic cholecystectomy completed Not Available [facility] 10/26/2022 03:15:41 03/16/20 17 Date of Last Colonoscopy completed Not Available [facility] 10/26/2022 03:15:39 02/16/20 16 Revision of knee joint completed Not Available [facility] 10/26/2022 03:15:41 02/16/20 16 Drain/inj joint/bursa w/o us completed Not Available [facility] 10/26/2022 03:15:41 Anesth hysterectomy completed Not Available [facility] 10/26/2022 03:15:41 Appendectomy completed Not Available [facility] 10/26/2022 03:15:41 Cholecystectomy completed Not Available [facility] 10/26/2022 03:15:41 Orthopedic Surgery completed Not Available [facility] 10/26/2022 03:15:41 Orthopedic Surgery completed Not Available [facility] 10/26/2022 03:15:41 section completed Not Available [facility] 10/26/2022 03:15:41 Imaging Results Imaging Date Name Status LastModified by Organization Details LastModified Time 08/09/2023 CT, brain, w/o contrast completed [address], [place], [address], 10/02/2023 16:35:33 08/09/2023 CT, cervical spine, w/o contrast completed [address], [place], [address], 08/19/2024 21:15:17 10/06/2023 US, doppler echocardiogram completed [address] [facility] [address], [place], [address], 03/11/2024 17:55:43 10/06/2023 CT, coronary calcium score completed [address] [facility] [address], [place], [address], 03/11/2024 17:59:55 10/31/2023 NM, myocardial perfusion scan completed [address] [facility] [address], [place], [address], 03/11/2024 18:10:03 10/31/2023 MAMMO, screening, digital, bilateral completed [address] ([employer]) [address] [place], [address], 02/12/2024 15:50:02 10/31/2023 MAMMO, screening, digital, bilateral completed [email or web address] [facility] ([facility]) [address] [place], [address], 02/12/2024 15:49:19 Procedure Notes None recorded. Medical Equipment None Reported. Allergies Allergen ID Allergen Name Allergen Category Reaction Reaction Severity Criticality Documentation Date Start Date Code Code System Note Provider Name and Address Organization Details Recorded Time 6206 adhesive tape environme nt,medica tion other Not available Not available 10/26/2022 40461 UNK takes skin off Not Available [facility] 3 03:33:35 6207 Substance with sulfonami de structure and antibacte rial mechanism of action (substanc e) medicatio n other Not available Not available 10/26/2022 31489 8003 SNOMED tremo rs Not Available [facility] 3 03:33:35 71934 Monistat- 1 medicatio n Not available Not available Not available 09/13/2023 42989 6 RxNorm JEFFRY Jacobs, [place] - [place] [facility] 4 10:11:59 Medications Name Sig Start Date Stop Date Status Note LastModified by Organization Details LastModified Time celecoxib 200 mg capsule Take 1 capsule every day by oral route. 11/02 completed Not Available Not Available Not Available cyclobenz aprine 10 mg tablet Take 1 tablet every day by oral route as needed for 30 days. 02/11 completed Not Available Not Available Not Available amoxicill in 500 mg capsule TAKE 4 CAPSULES BY MOUTH 1 HOUR BEFORE APPOINTM ENT 10/13 completed Not Available Not Available Not Available vitamin E 670 mg (1,000 unit) capsule TAKE 1 CAPSULE DAILY 04/19 completed Not Available Not Available Not Available metformin 500 mg tablet TAKE 1 TABLET BY MOUTH TWICE DAILY active Not Available Not Available No t Available Augmentin 875 mg-125 mg tablet Take 1 tablet every 12 hours by oral route for 10 days. active Not Available Not Available No t Available Qvar 80 mcg/actua tion Metered Aerosol oral inhaler active Not Available Not Available Not Available atorvasta tin 80 mg tablet TAKE 1 TABLET BY MOUTH ONCE DAILY active Not Available Not Available No t Available nystatin 100,000 unit/mL oral suspensio n 06/27 completed Not Available Not Available Not Available venlafaxi ne ER 37.5 mg capsule,e xtended release 24 hr 10/18 completed Not Available Not Available Not Available prednison e 10 mg tablet 30mg x 2 days, 20mg x 2 days, 10mg x 2 days active Not Available Not Available No t Available venlafaxi ne ER 75 mg capsule,e xtended release 24 hr TAKE 1 CAPSULE BY MOUTH EVERY MORNING FOR 7 DAYS THEN TAKE 2 CAPSULES BY MOUTH EVERY MORNING 11/02 completed Not Available Not Available Not Available cefuroxim e axetil 250 mg tablet TK 1 T PO BID 01/26 completed Not Available Not Available Not Available atorvasta tin 20 mg tablet TAKE 1 TABLET DAILY 02/13 completed Not Available Not Available Not Available sulfasala zine 500 mg tablet Take 2 tablets every day by oral route. 04/19 completed Not Available Not Available Not Available nabumeton e 750 mg tablet active Not Available Not Available Not Available trazodone 50 mg tablet Take 1/4 to 3 tablets at bedtime active Not Available Not Available No t Available cetirizin e 10 mg tablet TAKE 1 TABLET BY MOUTH EVERY DAY NEEDED FOR 90 DAYS. 06/03 completed Not Available Not Available Not Available azithromy ansley 250 mg tablet TAKE 2 TABLETS (500 MG) BY ORAL ROUTE ONCE DAILY FOR 1 DAY THEN 1 TABLET (250 MG) BY ORAL ROUTE ONCE DAILY FOR 4 DAYS 09/13 completed Not Available Not Available Not Available fluconazo le 150 mg tablet TAKE 1 TABLET BY MOUTH NOW 09/13 completed Not Available Not Available Not Available benzonata te 200 mg capsule active Not Available Not Available Not Available Patanol 0.1 % eye drops 06/27 completed Not Available Not Available Not Available Nystop 100,000 unit/gram topical powder APPLY TO THE AFFECTED AREA(S) BY TOPICAL ROUTE 2 TIMES PER DAY 02/11 completed Not Available Not Available Not Available prednison e 20 mg tablet active Not Available Not Available Not Available sulfasala zine 500 mg tablet,de layed release TAKE 1 TABLET BY MOUTH TWICE DAILY active Not Available Not Available No t Available midodrine 5 mg tablet TAKE 1 TABLET BY MOUTH THREE TIMES DAILY 11/13 completed Not Available Not Available Not Available venlafaxi ne ER 150 mg capsule,e xtended release 24 hr TAKE 2 CAPSULES BY MOUTH EVERY MORNING active Not Available Not Available No t Available Accu-Chek Softclix Lancets TEST DAILY active Not Available Not Available No t Available metronida zole 500 mg tablet 06/27 completed Not Available Not Available Not Available tramadol 50 mg tablet active Not Available Not Available Not Available amoxicill in 500 mg tablet Take 1 tablet 3 times a day by oral route for 10 days. active Not Available Not Available No t Available Adderall XR 20 mg capsule,e xtended release Take 1 capsule every day by oral route for 30 days. 08/16 completed Not Available Not Available Not Available oxycodone -acetamin ophen 5 mg-325 mg tablet 04/05 completed Not Available Not Available Not Available alprazola m 0.5 mg tablet Take 1 tablet 3 times a day by oral route as needed for 7 days. active Not Available Not Available No t Available Guaiatuss in AC 10 mg-100 mg/5 mL oral liquid active Not Available Not Available Not Available amoxicill in 875 mg tablet 01/26 completed Not Available Not Available Not Available estradiol 1 mg tablet TK 1 T PO QD 11/20 completed Not Available Not Available Not Available aspirin 325 mg tablet,de layed release TK 1 T PO BID WITH FOOD START DAY AFTER LAST ENOXAPAR IN DOSE 06/27 completed Not Available Not Available Not Available Kenalog 10 mg/mL suspensio n for injection In office injectio n administ ered by the provider 03/23 completed ND: [phone] Not Available Not Available Not Available meclizine 25 mg tablet TK 1 T PO BID PRN active Not Available Not Available No t Available sulfaceta mide sodium 10 % eye drops active Not Available Not Available Not Available benzonata te 100 mg capsule TAKE 1 CAPSULE BY MOUTH THREE TIMES DAILY NEEDED 09/13 completed Not Available Not Available Not Available promethaz ine-pheny lephrine- codeine 6.25 mg-5 mg-10 mg/5 mL oral syrup TK 5 ML PO QHS 01/26 completed Not Available Not Available Not Available hydrocodo ne 7.5 mg-acetam inophen 325 mg tablet 04/05 completed Not Available Not Available Not Available erythromy ansley 5 mg/gram (0.5 %) eye ointment active Not Available Not Available Not Available tacrolimu s 0.1 % topical ointment 02/11 completed Not Available Not Available Not Available ferrous sulfate 325 mg (65 mg iron) tablet TK 1 T PO BID. active Not Available Not Available No t Available esomepraz ole magnesium 40 mg capsule,d elayed release Take 1 capsule every day by oral route. active Not Available Not Available No t Available neomycin- polymyxin -dexameth 3.5 mg/mL-10, 000 unit/mL-0 .1% eye drops 10/01 completed Not Available Not Available Not Available nystatin 100,000 unit/gram topical cream APPLY TOPICALL Y TO THE AFFECTED AREA TWICE DAILY 02/11 completed Not Available Not Available Not Available Advair Diskus 250 mcg-50 mcg/dose powder for inhalatio n Inhale 1 puff twice a day by inhalati on route. active Not Available Not Available No t Available misoprost ol 100 mcg tablet 11/20 completed Not Available Not Available Not Available gabapenti n 300 mg capsule 04/05 completed Not Available Not Available Not Available diclofena c sodium 75 mg tablet,de layed release 02/08 completed Not Available Not Available Not Available dextroamp hetamine- amphetami ne ER 10 mg 24hr capsule,e xtend release Take 1 capsule every day by oral route for 30 days. active Not Available Not Available No t Available monteluka st 10 mg tablet Take 1 tablet every day by oral route for 30 days. 01/26 completed Not Available Not Available Not Available Levaquin 500 mg tablet Take 1 tablet every 24 hours by oral route as directed for 10 days. 12/19 completed Not Available Not Available Not Available gabapenti n 100 mg capsule TK 1 C PO Q NIGHT 01/30 completed Not Available Not Available Not Available ergocalci ferol (vitamin D2) 1,250 mcg (50,000 unit) capsule TAKE 1 CAPSULE BY MOUTH EVERY WEEK 09/13 completed Not Available Not Available Not Available azelastin e 137 mcg (0.1 %) nasal spray active Not Available Not Available Not Available hydroxych loroquine 200 mg tablet bid 02/08 completed Not Available Not Available Not Available Nasonex 50 mcg/actua tion [place] 2 sprays every day by intranas al route as directed . 01/29 completed Not Available Not Available Not Available polyethyl quincy glycol 3350 17 gram/dose oral powder 07/02 completed Not Available Not Available Not Available levofloxa ansley 750 mg tablet TK 1 T PO QD FOR 10 DAYS 02/13 completed Not Available Not Available Not Available methylpre dnisolone 4 mg tablets in a dose pack FOLLOW PACKAGE DIRECTIO NS 09/13 completed Not Available Not Available Not Available ferrous sulfate 325 mg (65 mg iron) tablet,de layed release TK 1 T PO TID 07/02 completed Not Available Not Available Not Available cefdinir 300 mg capsule TK 1 C PO Q 12 H active Not Available Not Available No t Available fluticaso ne propionat e 50 mcg/actua tion nasal spray,prakash pension SHAKE LIQUID AND USE 2 SPRAYS IN EACH NOSTRIL AT SUPPER active Not Available Not Available No t Available lisinopri l 2.5 mg tablet TAKE 1 TABLET BY MOUTH DAILY 11/02 completed Not Available Not Available Not Available dicyclomi ne 10 mg capsule 11/20 completed Not Available Not Available Not Available loratadin e 10 mg tablet Take 1 tablet every day by oral route as needed. 2019 active Not Available Not Available Not Avai lable naproxen 500 mg tablet 06/02 completed Not Available Not Available Not Available diazepam 5 mg tablet TK 1 TO 2 TS PO ONE HOUR PRIOR TO MRI 01/29 completed Not Available Not Available Not Available tobramyci n 0.3 %-dexamet hasone 0.1 % eye drops,prakash pension active Not Available Not Available Not Available neomycin 3.5 mg/g-poly myxin B 10,000 unit/g-de xameth 0.1 % eye oint active Not Available Not Available Not Available neomycin- polymyxin -hydrocor t 3.5 mg-10,000 unit/mL-1 % ear drops,prakash p INSTILL 3 DROPS INTO LEFT EAR BID 01/26 completed Not Available Not Available Not Available enoxapari n 30 mg/0.3 mL subcutane ous syringe INJECT 1 SYRINGE SUBCUTAN OUSLY Q 12 H 06/27 completed Not Available Not Available Not Available cyclobenz aprine 5 mg tablet Take 1 tablet 3 times a day by oral route. 04/05 completed Not Available Not Available Not Available aripipraz ole 5 mg tablet TK 1T PO QD active Not Available Not Available No t Available rosuvasta tin 20 mg tablet Take 1 tablet every day by oral route. active Not Available Not Available No t Available rosuvasta tin 40 mg tablet TAKE 1 TABLET BY MOUTH DAILY 02/09 completed Not Available Not Available Not Available bupropion HCl XL 300 mg 24 hr tablet, extended release TAKE 1 TABLET BY MOUTH EVERY MORNING 09/13 completed Not Available Not Available Not Available bupropion HCl XL 150 mg 24 hr tablet, extended release TAKE 1 TABLET BY MOUTH EVERY MORNING FOR 4 DOSES THEN TAKE 2 TABLETS BY MOUTH EVERY MORNING 09/13 completed Not Available Not Available Not Available epinastin e 0.05 % eye drops 05/04 completed Not Available Not Available Not Available Xifaxan 200 mg tablet 06/13 completed Not Available Not Available Not Available nitrofura ntoin monohydra te/macroc rystals 100 mg capsule active Not Available Not Available Not Available Femtrace 0.9 mg tablet active Not Available Not Available Not Available loratadin e 01/26 completed Not Available Not Available Not Available L-Lysine prn 2015 active Not Available Not Available Not Avai lable Co Q-10 qd 04/19 completed Not Available Not Available Not Available omeprazol e OTC 05/04 completed Not Available Not Available Not Available Nasacort 02/13 completed Not Available Not Available Not Available fluticaso ne propionat e 1 [place] in each nostril daily PRN 11/13 completed Not Available Not Available Not Available One A Day Vitamin Take one daily 10/13 completed Not Available Not Available Not Available lidocaine (PF) 10 mg/mL (1 %) injection solution In office injectio n administ ered by the provider 03/23 completed [facility]: [id number] 02-11 Not Available Not Available Not Available ProAir HFA 90 mcg/actua tion aerosol inhaler Inhale 2 puffs every 4-6 hours by inhalati on route as needed for 90 days. 01/16 completed Not Available Not Available Not Available fenofibra te nanocryst allized 48 mg tablet TAKE 1 TABLET BY MOUTH DAILY 08/24 completed Not Available Not Available Not Available olopatadi ne 0.2 % eye drops INT 1 GTT IN OU QD PRN active Not Available Not Available No t Available cholecalc iferol (vitamin D3) 1,250 mcg (50,000 unit) capsule TAKE 1 CAPSULE BY MOUTH EVERY WEEK 11/13 completed Not Available Not Available Not Available Dulera 200 mcg-5 mcg/actua tion HFA aerosol inhaler INHALE 2 PUFFS PO BID THEN RINSE MOUTH 11/20 completed Not Available Not Available Not Available Probiotic CULTUREL LE 1-2 TAB DAILY 10/13 completed Not Available Not Available Not Available sodium,po tassium,m ag sulfates 17.5 gram-3.13 gram-1.6 gram oral soln MIX AND DRINK DIRECTED 09/13 completed Not Available Not Available Not Available loratadin e 10 mg capsule Take 1 capsule every day by oral route. 04/19 completed Not Available Not Available Not Available Linzess 145 mcg capsule Take 1 capsule every day by oral route. 04/22 completed Not Available Not Available Not Available Vascepa 1 gram capsule TAKE 2 CAPSULES BY MOUTH DAILY 11/13 completed med gets caught in her throat Not Available Not Available Not Available Nasacort 55 mcg nasal spray aerosol [place] 1 spray every day by intranas al route as needed. 07/20 completed Not Available Not Available Not Available Jardiance 10 mg tablet TAKE 1 TABLET BY MOUTH EVERY DAY 06/03 completed Increase d anxiety and depressi on IBS became worse. Not Available Not Available Not Available Pazeo 0.7 % eye drops INSTILL 1 DROP INTO AFFECTED EYE(S) BY OPHTHALM IC ROUTE ONCE DAILY 07/20 completed Not Available Not Available Not Available Rexulti 2 mg tablet TK 1 T PO D 11/21 completed Not Available Not Available Not Available Accu-Chek Guide test strips TEST DAILY active Not Available Not Available No t Available Fluad Quad (65yr up)(PF) 60 mcg (15 mcg x 4)/0.5mL IM syringe PHARMACY ADMINIST ERED 07/20 completed Not Available Not Available Not Available Mounjaro 5 mg/0.5 mL subcutane ous pen injector Inject 5 mg every week by subcutan eous route. 12/05 completed Not Available Not Available Not Available Mounjaro 2.5 mg/0.5 mL subcutane ous pen injector Inject 2.5 mg every week by subcutan eous route for 30 days. 03/20 completed Not Available Not Available Not Available Vitals Date Recorded Body height Body mass index (BMI) Body weight Body temperature Heart rate Oxygen saturation Oxygen saturation in Arterial blood by Pulse oximetry Systolic blood pressure Diastolic blood pressure Provider Name and Address Organization Details Last Updated DateTime 3 165.1 cm 41.1 kg/m2 016456. 32 g 96.9 [degF] 86 /min 95 % 95 % 120 mm[Hg] 70 mm[Hg] Obdulia Wiggins MA [employer] [facility] 3 14:26:37 Date Recorded Body height Provider Name an d Address Organization Details Last Updated DateTime 09/13/2023 165.1 cm Randi Mckeon [place] [employer] [facility] 09/13/2023 10:11:31 Date Recorded Body height Body mass index (BMI) Body weight Body temperature Heart rate Systolic blood pressure Diastolic blood pressure Provider Name and Address Organization Details Last Updated DateTime 4 165.1 cm 41.1 kg/m2 343357. 32 g 97.1 [degF] 78 /min 128 mm[Hg] 80 mm[Hg] Randi Mckeon [place] [employer] [facility] [employer] [facility] 4 15:15:04 Date Recorded Pain severity - 0-10 verbal numeric rating [Score] - Reported Provider Name and Address Organization Details Last Updated DateTime 02/12/2024 1 Wilfrid Estrella LPN [employer] [facility] [employer] [facility] 02/12/2024 15:53:29 Date Recorded Body height Body mass index (BMI) Body weight Body temperature Heart rate Respiratory rate Oxygen saturation Oxygen saturation in Arterial blood by Pulse oximetry Pain severity - 0-10 verbal numeric rating [Score] - Reported Systolic blood pressure Diastolic blood pressure Provider Name and Address Organization Details Last Updated DateTime 4 165.1 cm 40.3 kg/m2 644656. 35 g 98 [degF] 88 /min 18 /min 96 % 96 % 1 118 mm[Hg] 68 mm[Hg] Wilfrid Estrella LPN [employer] [facility] [employer] 4 10:40:05 Date Recorded Body height Body mass index (BMI) Body weight Body temperature Heart rate Systolic blood pressure Diastolic blood pressure Provider Name and Address Organization Details Last Updated DateTime 5 165.1 cm 41.1 kg/m2 697229. 32 g 97.7 [degF] 84 /min 134 mm[Hg] 76 mm[Hg] Randijacob Mckeon Carito [employer] 5 15:49:42 Social History Question Answer Notes LastModified by Organizat ion Details LastModified Time Tobacco Smoking Status Never Smoker Tona mcpherson, [employer] [facility] [employer] 01/19/2023 10:31:45 Do You Have An Advance Directive? No Patient Given Informatio n. [email or web address] Information not available 02/12/2024 What Is Your Level Of Alcohol Consumption? None [id number] Information not available 10/26/2022 Are You Blind Or Do You Have Difficulty Seeing? No Information not available 01/19/2023 Is Blood Transfusion Acceptable In An Emergency? Yes [email or web address] Information not available 02/12/2024 What Is Your Level Of Caffeine Consumption? Moderate [id number] Information not available 10/26/2022 How Much Tobacco Do You Chew? None [id number] Information not available 10/26/2022 What Is Your Code Status? Full Code Information not available 02/12/2024 In The 14 Days Before Symptom Onset, Have You Had Close Contact With A Laboratory-confi rmed COVID-19 While That Case Was Ill? No Information not available 01/19/2023 In The 14 Days Before Symptom Onset, Have You Had Close Contact With A Person Who Is Under Investigation For COVID-19 While That Person Was Ill? No Information not available 01/19/2023 Are You Currently Employed? No Retired [email or web address] Information not available 02/12/2024 Are You Deaf Or Do You Have Serious Difficulty Hearing? No Information not available 01/19/2023 What Type Of Diet Are You Following? REGULAR [id number] Information not available 10/26/2022 Which Illicit Or Recreational Drugs Have You Used? None Information not available 01/19/2023 What Is The Highest Grade Or Level Of School You Have Completed Or The Highest Degree You Have Received? [id number] Information not available 02/12/2024 How Many Days Of Moderate To Strenuous Exercise, Like A Brisk Walk, Did You Do In The Last 7 Days? 0 [email or web address] Information not available 02/12/2024 Have There Been Any Changes To Your Family Or Social Situation? No Information not available 01/19/2023 What Is The Fluoride Status Of Your Home? Unknown Information not available 01/19/2023 Are There Any Guns Present In Your Home? No Information not available 02/12/2024 Do You Use Insect Repellent Routinely? No Information not available 01/19/2023 Where Do You Live? [place] Information not available 01/19/2023 Presence Of Domestic Violence No [email or web address] Information not available 02/12/2024 Guns Present In The Home? No [email or web address] Information not available 02/12/2024 Are You Able To Care For Yourself? Yes Information not available 02/12/2024 Are You Blind Or Do Yo Have Difficulty Seeing? No [email or web address] Information not available 02/12/2024 Are You Deaf Or Do You Have Serious Difficulty Hearing? No [email or web address] Information not available 02/12/2024 General Stress Level? Low Information not available 02/12/2024 Live Alone Of With Others? With Others [email or web address] Information not available 02/12/2024 Do You Have A Medical Power Of Medical Assistant Instructor? No Information not available 01/19/2023 What Was The Date Of Your Most Recent Tobacco Screening? 11/13/2024 Information not available 11/13/2024 Do You Have Any Pets? Yes Dog [email or web address] Information not available 02/12/2024 What Is Your Relationship Status? Information not available 02/12/2024 Do You Use Your Seat Belt Or Car Seat Routinely? Yes [email or web address] Information not available 02/12/2024 Do You Have Smoke And Carbon Monoxide Detectors In Your Home? Yes Information not available 01/19/2023 Are You Passively Exposed To Smoke? No [email or web address] Information not available 02/12/2024 Are There Any Smokers In Your House? No [email or web address] Information not available 02/12/2024 What Types Of Sporting Activities Do You Participate In? None [email or web address] Information not available 02/12/2024 Do You Feel Stressed (tense, Restless, Nervous, Or Anxious, Or Unable To Sleep At Night)? [id number] Information not available 01/19/2023 Do You Use Any Illicit Or Recreational Drugs? No Information not available 01/19/2023 Do You Use Sunscreen Routinely? No Information not available 01/19/2023 Has Tobacco Cessation Counseling Been Provided? No Information not available 01/19/2023 Have You Recently Traveled Abroad? No Information not available 01/19/2023 Do You Have Any Dietary Restrictions? No Information not available 01/19/2023 Do You Or Have You Ever Used Any Other Forms Of Tobacco Or Nicotine? No Information not available 01/19/2023 Sex: Unknown Functional Status Question Answer Note LastModified by Organizat ion Details LastModified Time Do you have difficulty walking or climbing stairs? Yes Due to pain in spine and knees [email or web address] Information not available 02/12/2024 Do you have transportation difficulties? No Information not available 01/19/2023 Are you able to walk? [email or web address] Information not available 01/19/2023 Do you have difficulty doing errands alone? No Information not available 01/19/2023 Are you able to care for yourself? Yes Information n ot available 01/19/2023 Do you have difficulty dressing or bathing? No Information not available 01/19/2023 What is your exercise level? Occasional [id number] Information not available 10/26/2022 Mental Status Question Answer Note LastModified by Organization D etails LastModified Time Do you have difficulty concentrating, remembering or making decisions? No Information no t available 01/19/2023 Family History Relationship Description Onset Age of this Age Resolved Age Notes LastModified by Organization Details LastModified Time Mother Kidney disease [id number] Not available 10/26/2022 03:15:48 Mother Diabetes mellitus [id number] Not available 10/26/2022 03:15:48 Mother Heart disease [id number] Not available 10/26/2022 03:15:48 Sister Diabetes mellitus Not available 2022 11:13:15 Sister Arthritis Not available 01/19/2023 11:13:32 Father Carcinoma of prostate Not available 2022 10:31:45 Father Arthritis Not available 01/19/2023 11:13:32 Father Heart disease Not available 2022 11:13:43 Unspecified Relation Human leukocyte antigen type Niece- B27 antige n phenot yping Not available 01/19/2023 10:31:45 Mother Arthritis Not available 01/19/2023 11:13:32 Notes:family histiry of clot s/mother after pacemaker Medical History Condition Response ARTHRITIS Y DIZZINESS Y SLEEP APNEA Y DIABETES, TYPE Y ALLERGIES/HAYFEVER Y INSOMNIA Y HEARTBURN / REFLUX Y HYPERTENSION Y COPD Y HIGH CHOLESTEROL / HYPERLIPIDEMIA Y Deficiency Y EYE PROBLEMS Y ANXIETY DISORDER Y OBESITY Y GERD/NAUSEA Y ANEMIA/BLOOD DISORDER Y BRONCHITIS Y BOWEL PROBLEMS Y BACK / NECK PROBLEMS Y DEPRESSION (INCLUDING POST ) Y Gynecological History Statement/Question Response Date of Last Pap Date of Last Mammogram 03/08/2022 Date of Last Colonoscopy 03/16/2017 Obstetrics History GPAL:G 0 P 0 0 0 0 Immunizations Vaccine Type Date Status Note Provider Nam e and Address Organization Details Recorded Time COVID-19, mRNA, LNP-S, PF, 100 mcg/0.5mL dose or 50 mcg/0.25mL dose 1 completed Not Available [facility] 06/23/2023 22:50:35 COVID-19, mRNA, LNP-S, PF, 100 mcg/0.5mL dose or 50 mcg/0.25mL dose 1 completed Not Available [facility] 06/23/2023 22:50:35 Influenza, high-dose, trivalent, PF 5 completed Not Available [facility] 06/23/2023 22:50:35 Influenza, split virus, trivalent, preservative 1 completed Not Available [facility] 06/23/2023 22:50:35 Influenza, high-dose, trivalent, PF 0 completed Not Available [facility] 06/23/2023 22:50:35 influenza, unspecified formulation 8 completed Not Available [facility] 06/23/2023 22:50:35 Pneumococcal conjugate PCV20, polysaccharide ASM600 conjugate, adjuvant, PF 2 completed Not Available [facility] 06/23/2023 22:50:35 Influenza, high-dose, quadrivalent, PF 2 completed Not Available [facility] 06/23/2023 22:50:35 Influenza, split virus, quadrivalent, PF 9 completed Not Available [facility] 06/23/2023 22:50:35 Influenza, split virus, quadrivalent, PF 6 completed Not Available [facility] 06/23/2023 22:50:35 Past Encounters Encounter ID Performer Location Encounter Start Date Encounter Closed Date Diagnosis/Indication Diagnosis SNOMED-CT Code Diagnosis ICD10 Code Diagnosis Note [id number] _FRIDABOB_Corinne IGRATION_ DEFAULT_1 _1 , 11/20/2020 00:00:00 11/24/2020 10:03:38 [id number] [facility] [address], [place] [address] 12/07/2020 00:00:00 12/13/2020 13:21:43 [id number] [facility] [address], [place] [address] 04/19/2021 00:00:00 04/19/2021 15:44:30 [id number] [facility] [place] [address] [place], [place] [address] 10/13/2021 00:00:00 10/13/2021 17:27:19 [id number] [facility] [place] [address] [facility] [place] [address] 06/22/2022 00:00:00 07/19/2022 17:29:37 [id number] Jose Manuel beltran MD [facility] [place] [address] [facility] [place] [address] 11/02/2022 11:23:09 11/02/2022 12:48:38 Screening - NAD 897756992 Z13.9 NAD - C-scope: 05/09, Dr. Rush nEGD: 05/09 Dr. Rush nC-scope: 03/16/17: Next in 5 years PAP: Sees Dr Lopez Mammogram; 05/12/2020 : Birads 0 R breast, did get the US R breast, neg as per her hx and next in one year, orderedMam mogram: 03/08/2022 : Ceci Carrington, dermatolog y 07/25/17, yearly skin surveillan ce DEXA: orderedUTD yearly flu shot.UTD tdap 4 years agoGet pneumovax and shingles vaccine only if OK with Dr Montes De Oca on COVID 19 vaccineRTC in 4 monthsDo labsER if any symptoms worsen,She did verbalize their understand ing of the above Hypercholesterolemia 136 85072 E78.5 On atorvastat in 80mg daily Get labs Obstructiv e sleep apnea syndrome 62988945 G47.33 S/p sleep study in [place], [place] 2010, not using the CPAP as it does not allow her to breatheIs to get vestibular therapy thru ENT 07/14/2020 OV 04/19/2021 :Get an ENT aptShe states that she is doing wellOV 10/13/2021 :Needs to see ENT, referral again providedOV 06/22/2022 :Get another apt with ENTSend for otolaryngo logist referral OV 11/02/2022 :Refer to ENT Type 2 darek betes mellitus without complication 435899615 E11.9 On metforminG et on Mounjaro, all side effects explained, she will come for teaching in 2 weeks, no history of MEN2 or thyroid or parathyroi d or pancreatic issuesGet labsNeeds to see eye MDDr Luis last OV 11/20/2020 Send for power distributor referral Thrombocytosis 8565883 D 75.839 Dr Tatum 02/02/2022 Skin lesion 09801745 L98 .9 Dr Carrington, dermatolog y 07/25/17, does well now Mechanical low back pain 112753827 M54.50 S/p L surgery, s/p fusion L3-4-5 in 02/2018, done by Dr Martinez s that her bed is the problemOn flexerillN o LE/UE weakness or N/T in the legs and no bowel or bladder incontinen ce Essential hypertension 84761339 I10 Not taking the lisinopril 2.5mg dailyGet labs Anemia 418719097 D64.9 05/16/19: Dr Valdez: no further aptsGet labs Generalize d anxiety disorder 05501047 F41.1 On aripiprazo le 5mg dailyOn venlafaxin e ER 150mg and 75mg, refilled by Dr Mari Bhatia ees Dr Cooper s well, not suicidal or homicidal Insomnia 973051857 G47.0 0 On trazodone 50mg take 1/4 tab to 3 tabs po q hs Osteoarthritis 826135073 M19.[address] Son rheumatolo gistOn sulfasalaz ineOn celebrex Liver enzy mes outside reference range 445296062 R94.5 get labs Irritable bowel syndrome 59572882 K58.[address] prather Proteinuria 99498156 R80 [address] Ly/Dr Hollingsworth in 10/2021 Screening for malignant neoplasm of colon 159906926 Z12.11 Order colonoscop y screening (PROC) Screening for osteoporosis 399321028 Z13.820 Vitamin D deficiency 347 08650 E55.9 Hypothyroidism 54113908 E03.9 Low normal FT4C/o fatigue and weight gainGet US thyroid, may need levothyrox ine [id number] Jose Manuel beltran MD [facility] [address] [address] [place] [address] 11/14/2022 14:30:20 11/14/2022 15:09:39 Type 2 diabetes mellitus without complication 792567825 E11.9 On metforminG et on Mounjaro, all side effects explained, she will come for teaching in 2 weeks, no history of MEN2 or thyroid or parathyroi d or pancreatic issuesGet labsNeeds to see eye MDDr Rammacher last OV 11/20/2020 Send for power distributor referral OV 11/14/2022 :Diabetic teaching for Mounjaro done today, all questions answered, she will [id number] Marcell Barrientos DPM [facility] [place] [address] [place] [address] 01/19/2023 10:31:21 01/19/2023 11:59:05 Onychomycosis of toenails 212109688 B35.1 great toe right and left 4thdebride ment of great toe sent for PAS stainif positive will schedule for total nail avulsion of both affected toenailsfo [facility]low [facility] the [facility] sometime in [id number] Jose Manuel beltran MD [facility] [place] [address] [facility] [address] , [place] [address] 03/20/2023 14:15:16 03/20/2023 14:55:26 Type 2 diabetes mellitus without complication 101428749 E11.9 On metforminG et on Mounjaro, all side effects explained, she will come for teaching in 2 weeks, no history of MEN2 or thyroid or parathyroi d or pancreatic issuesGet labsNeeds to see eye MDDr Rammacher last OV 11/20/2020 Send for power distributor referral OV 11/14/2022 :Diabetic teaching for Mounjaro done today, all questions answered OV 03/20/2023 : On metforminG et labs Screening - NAD 75846292 3 Z13.9 NAD - C-scope: 05/09, Dr. Rush nEGD: 05/09 Dr. Rush nC-scope: 03/16/17: Next in 5 yearsPAP: Sees Dr Lopez Mammogram; 05/12/2020 : Birads 0 R breast, did get the US R breast, neg as per her hx and next in one year, orderedMam mogram: 03/08/2022 : Ceci Carrington, dermatolog y 07/25/17, yearly skin surveillan ceDEXA: orderedUTD yearly flu shot.UTD tdap 4 years agoGet pneumovax and shingles vaccine only if OK with Dr Montes De Oca on COVID 19 vaccineRTC in 4 monthsDo labsER if any symptoms worsen,She did verbalize their understand ing of the above Hypercholesterolemia 136 60119 E78.5 On atorvastat in 80mg dailyAdd vascepa Get labs Obstructiv e sleep apnea syndrome 89814081 G47.33 S/p sleep study in [place], [place] 2010, not using the CPAP as it does not allow her to breatheIs to get vestibular therapy thru ENT 07/14/2020 OV 04/19/2021 :Get an ENT aptShe states that she is doing wellOV 10/13/2021 :Needs to see ENT, referral again providedOV 06/22/2022 :Get another apt with ENTSend for otolaryngo logist referral OV 11/02/2022 :Refer to ENT OV 03/20/2023 :Does well now Thrombocytosis 2934680 D 75.839 Dr Tatum 02/02/2022 Skin lesion 03513941 L98 .9 Dr Carrington, dermatolog y 07/25/17, does well now Mechanical low back pain 614368308 M54.50 S/p L surgery, s/p fusion L3-4-5 in 02/2018, done by Dr Martinez s that her bed is the problemOn flexerillN o LE/UE weakness or N/T in the legs and no bowel or bladder incontinen ce Essential hypertension 89200001 I10 Not taking the lisinopril 2.5mg dailyGet labs Anemia 043652941 D64.9 05/16/19: Dr Valdez: no further aptsGet labs Generalize d anxiety disorder 84433614 F41.1 On aripiprazo le 5mg dailyOn venlafaxin e ER 150mg and 75mg, refilled by Dr Mari Bhatia ees Dr Cooper s well, not suicidal or homicidal Insomnia 456250152 G47.0 0 On trazodone 50mg take 1/4 tab to 3 tabs po q hs Osteoarthritis 266454134 M19.[address] Son rheumatolo gistOn sulfasalaz ineOn celebrex Liver enzy mes outside reference range 667304090 R94.5 get labs Irritable bowel syndrome 45423858 K58.[address] prather Proteinuria 05315523 R80 [address] Ly/Dr Hollingsworth in 10/2021 Screening for malignant neoplasm of colon 287692469 Z12.11 Order colonoscop y screening (PROC) Screening for osteoporosis 743510961 Z13.820 Vitamin D deficiency 347 50884 E55.9 Hypothyroidism 55788358 E03.9 Low normal FT4C/o fatigue and weight gainGet US thyroid, may need levothyrox ine US thyroid 11/25/2022 , next in one year Increased liver function 04342695 R94.5 US liver: Hepatic steatosisM ore diet and exercise, may need to see GI Screening mammography 24 083690 Z12.31 [id number] Jose Manuel beltran MD [facility] [address] [facility] [place] [address] 09/13/2023 10:08:32 09/13/2023 10:39:33 Screening - NAD 925238153 Z13.9 NAD - C-scope: 05/09, Dr. Rush nEGD: 05/09 Dr. Rush nC-scope: 03/16/17: Next in 5 yearsC-sco pe: 01/31/2023 : Dr Donaldson: Sees Dr Lopez Mammogram; 05/12/2020 : Birads 0 R breast, did get the US R breast, neg as per her hx and next in one year, orderedMam mogram: 03/08/2022 : Ceci Carrington, dermatolog y 07/25/17, yearly skin surveillan ceDEXA: orderedUTD yearly flu shot.UTD tdap 4 years agoGet pneumovax and shingles vaccine only if OK with Dr Montes De Oca on COVID 19 vaccineUTD on RSV vaccineRTC in 4 monthsDo labsER if any symptoms worsen,She did verbalize their understand ing of the above Type 2 darek betes mellitus without complication 883458449 E11.9 On metforminG et on Mounjaro, all side effects explained, she will come for teaching in 2 weeks, no history of MEN2 or thyroid or parathyroi d or pancreatic issuesGet labsNeeds to see eye MDDr Marce last OV 11/20/2020 Send for power distributor referral OV 11/14/2022 :Diabetic teaching for Jo done today, all questions answered OV 03/20/2023 : On metforminG et labs OV 09/13/2023 :On metforminG et labs Hypercholesterolemia 136 63147 E78.5 On atorvastat in 80mg dailyAdd vascepa but not taking this as it was expensive Get labs Obstructiv e sleep apnea syndrome 59234743 G47.33 S/p sleep study in [place], [place] 2010, not using the CPAP as it does not allow her to breatheIs to get vestibular therapy thru ENT 07/14/2020 OV 04/19/2021 :Get an ENT aptShe states that she is doing wellOV 10/13/2021 :Needs to see ENT, referral again providedOV 06/22/2022 :Get another apt with ENTSend for otolaryngo logist referral OV 11/02/2022 :Refer to ENT OV 03/20/2023 :Does well now OV 09/13/2023 :Did see ENT, did see Dr Jorgensen Thrombocytosis 9442249 D 75.839 Dr Tatum 04/24/2023 Skin lesion 73773471 L98 .9 Dr Carrington, dermatolog y 07/25/17, does well now Mechanical low back pain 570977564 M54.50 S/p L surgery, s/p fusion L3-4-5 in 02/2018, done by Dr Martinez s that her bed is the problemOn flexerillN o LE/UE weakness or N/T in the legs and no bowel or bladder incontinen ce Essential hypertension 96501117 I10 Not taking the lisinopril 2.5mg dailyGet labs Anemia 073207843 D64.9 05/16/19: Dr Valdez: no further aptsGet labs Generalize d anxiety disorder 88342710 F41.1 On aripiprazo le 5mg dailyOn venlafaxin e ER 150mg and 75mg, refilled by Dr Mari Bhatia ees Dr Cooper s well, not suicidal or homicidal Insomnia 089266326 G47.0 0 On trazodone 50mg take 1/4 tab to 3 tabs po q hs Osteoarthritis 703146138 M19.[address] Son rheumatolo gistOn sulfasalaz ineOn celebrex Liver enzy mes outside reference range 620631652 R94.5 get labs Irritable bowel syndrome 85519845 K58.[address] prather Proteinuria 53282299 R80 [address] Ly/Dr Hollingsworth in 10/2021 Screening for osteoporosis 911404779 Z13.820 Vitamin D deficiency 347 08158 E55.9 Hypothyroidism 72228505 E03.9 Low normal FT4C/o fatigue and weight gainGet US thyroid, may need levothyrox ine US thyroid 11/25/2022 , next in one year Increased liver function 22200079 R94.5 US liver: Hepatic steatosisM ore diet and exercise, may need to see GI Screening mammography 24 713264 Z12.31 [id number] Jose Manuel beltran MD [facility] [place] [address] [facility] y , [facility] [place] [address] 02/12/2024 15:02:52 02/12/2024 16:12:34 Adult health examination 315741493 Z00.00 Screening for disorder 184540471 Z13.9 Screening for osteoporosis 916748683 Z13.820 Vitamin D deficiency 347 32782 E55.9 Screening - NAD 62696880 3 Z13.9 EGD: 05/09 Dr. Rush nC-scope: 03/16/17: Next in 5 yearsC-sco pe: 01/31/2023 : Dr Donaldson: Sees Dr Lopez Mammogram; 05/12/2020 : Birads 0 R breast, did get the US R breast, neg as per her hx and next in one year, orderedMam mogram: 03/08/2022 : Ceci Carrington, dermatolog y 07/25/17, yearly skin surveillan ceDEXA: orderedUTD yearly flu shot.UTD tdap 4 years agoGet pneumovax and shingles vaccine only if OK with Dr Montes De Oca on COVID 19 vaccineUTD on RSV vaccineRTC in 4 monthsDo labsER if any symptoms worsen,She did verbalize their understand ing of the above Type 2 darek betes mellitus without complication 337967619 E11.9 On metforminG et on Mounjaro, all side effects explained, she will come for teaching in 2 weeks, no history of MEN2 or thyroid or parathyroi d or pancreatic issuesGet labsNeeds to see eye MDDr Marce last OV 11/20/2020 Send for power distributor referral OV 11/14/2022 :Diabetic teaching for Jo done today, all questions answered OV 03/20/2023 : On metforminG et labs OV 09/13/2023 :On metforminG et labs OV 02/12/2024 :On metforminM ore diet and exercise and get labs Hypercholesterolemia 136 49636 E78.5 On atorvastat in 80mg dailyAdd vascepa Get labs Obstructiv e sleep apnea syndrome 26410963 G47.33 S/p sleep study in [place], [place] 2010, not using the CPAP as it does not allow her to breatheIs to get vestibular therapy thru ENT 07/14/2020 OV 04/19/2021 :Get an ENT aptShe states that she is doing wellOV 10/13/2021 :Needs to see ENT, referral again providedOV 06/22/2022 :Get another apt with ENTSend for otolaryngo logist referral OV 11/02/2022 :Refer to ENT OV 03/20/2023 :Does well now OV 09/13/2023 :Did see ENT, did see Dr Jorgensen OV 02/12/2024 :Get a referral to pulmonary again Thrombocytosis 6924408 D 75.839 Dr Tatum 04/24/2023 Skin lesion 74056630 L98 .9 Dr Carrington, dermatolog y 07/25/17, does well now Mechanical low back pain 857497793 M54.50 S/p L surgery, s/p fusion L3-4-5 in 02/2018, done by Dr Martinez s that her bed is the problem On flexerill No LE/UE weakness or N/T in the legs and no bowel or bladder incontinen ce Essential hypertension 46285958 I10 Not taking the lisinopril 2.5mg dailyGet labs Anemia 203482882 D64.9 05/16/19: Dr Valdez: no further aptsGet labs Generalize d anxiety disorder 01485700 F41.1 On aripiprazo le 5mg dailyOn venlafaxin e ER 150mg and 75mg, refilled by Dr Mari Bhatia ees Dr Cooper s well, not suicidal or homicidal Insomnia 477959121 G47.0 0 On trazodone 50mg take 1/4 tab to 3 tabs po q hs Osteoarthritis 286732505 M19.[address] Son rheumatolo gistOn sulfasalaz ineOn celebrex Liver enzy mes outside reference range 536508213 R94.5 get labs Irritable bowel syndrome 86543606 K58.[address] prather Proteinuria 89785908 R80 [address] Ly/Dr Hollingsworth in 10/2021 Hypothyroidism 84891690 E03.9 Low normal FT4C/o fatigue and weight gainGet US thyroid, may need levothyrox ine US thyroid 11/25/2022 , next in one year Increased liver function 89935348 R94.5 US liver: Hepatic steatosisM ore diet and exercise, may need to see GI Seasonal a llergic rhinitis 102983553 J30.2 Get on flonase, and claritin [id number] Jose Manuel beltran MD [facility] [place] [address] [facility] , [place] [address] 06/03/2024 10:25:08 06/03/2024 11:55:45 Screening for osteoporosis 912123059 Z13.820 Vitamin D deficiency 347 28036 E55.9 Get on vit D weekly and repeat the vit d Type 2 darek betes mellitus without complication 753231123 E11.9 On metforminG et on Mounjaro, all side effects explained, she will come for teaching in 2 weeks, no history of MEN2 or thyroid or parathyroi d or pancreatic issuesGet labsNeeds to see eye MDDr Priteshmac last OV 11/20/2020 Send for power distributor referral OV 11/14/2022 :Diabetic teaching for Mounjaro done today, all questions answered OV 03/20/2023 : On metforminG et labs OV 09/13/2023 :On metforminG et labs OV 02/12/2024 :On metforminM ore diet and exercise and get labs OV 06/03/2024 :On metformin 500mg bidRepeat the labs Screening - NAD 16631261 3 Z13.9 EGD: 05/09 Dr. Rush nC-scope: 03/16/17: Next in 5 yearsC-sco pe: 01/31/2023 : Dr Donaldson: Sees Dr Lopez Mammogram; 05/12/2020 : Birads 0 R breast, did get the US R breast, neg as per her hx and next in one year, orderedMam mogram: 03/08/2022 : NegMammogr am: 10/31/2023 : Ceci Carrington, dermatolog y 07/25/17, yearly skin surveillan ceDEXA: orderedUTD yearly flu shot.UTD tdap 4 years agoGet pneumovax and shingles vaccine only if OK with Dr Montes De Oca on COVID 19 vaccineUTD on RSV vaccineRTC in 2 monthsDo labsER if any symptoms worsenShe did verbalize their understand ing of the above Hypercholesterolemia 136 87500 E78.5 On atorvastat in 80mg dailyOn vascepaMor e diet and exercise is neededGet labs Obstructiv e sleep apnea syndrome 69056601 G47.33 S/p sleep study in [place], [place] 2010, not using the CPAP as it does not allow her to breatheIs to get vestibular therapy thru ENT 07/14/2020 OV 04/19/2021 :Get an ENT aptShe states that she is doing wellOV 10/13/2021 :Needs to see ENT, referral again providedOV 06/22/2022 :Get another apt with ENTSend for otolaryngo logist referral OV 11/02/2022 :Refer to ENT OV 03/20/2023 :Does well now OV 09/13/2023 :Did see ENT, did see Dr Jorgensen OV 02/12/2024 :Get a referral to pulmonary again OV 06/03/2024 : See Dr Wyman, referred Thrombocytosis 9368601 D 75.839 Dr Tatum 04/24/2023 , 11/17/2023 , referred 06/03/2024 Skin lesion 90190644 L98 .9 Dr Carrington, dermatolog y 07/25/17, does well now Mechanical low back pain 935572462 M54.50 S/p L surgery, s/p fusion L3-4-5 in 02/2018, done by Dr Martinez s that her bed is the problem On flexerill No LE/UE weakness or N/T in the legs and no bowel or bladder incontinen ce Essential hypertension 30076709 I10 Not taking the lisinopril 2.5mg dailyGet labs Anemia 085624073 D64.9 05/16/19: Dr Valdez: no further aptsGet labs Generalize d anxiety disorder 62268734 F41.1 On aripiprazo le 5mg dailyOn venlafaxin e ER 150mg and 75mg, refilled by Dr Mari Bhatia ees Dr Cooper s well, not suicidal or homicidal Insomnia 080464501 G47.0 0 On trazodone 50mg take 1/4 tab to 3 tabs po q hs Osteoarthritis 605920871 M19.[address] Son rheumatolo gistOn sulfasalaz ineOn celebrex Liver enzy mes outside reference range 189465037 R94.5 get labs Irritable bowel syndrome 48276310 K58.[address] prather Proteinuria 18344200 R80 [address] Ly/Dr Hollingsworth in 10/2021 Hypothyroidism 12340514 E03.9 Low normal FT4C/o fatigue and weight gainGet US thyroid, may need levothyrox ine US thyroid 11/25/2022 , next in one year Increased liver function 57024033 R94.5 US liver: Hepatic steatosisM ore diet and exercise, may need to see GI Seasonal a llergic rhinitis 948919899 J30.2 On flonase, and claritin Coronary arteriosclerosis 93321493 I25.10 ECHO 10/06/2023 : EF 63%Stress test 10/31/2023 Dr Malave 11/28/2023 , begin infepaStat es 06/03/2024 , she stopped the infepaNeed s to see Dr Malave, did speak with Dr Malave, his office will schedule the apt this week She did not want to go to the ER today, 06/03/2024 , still has dizziness, wants to go home and monitor her symptoms, states that she is going to [place], she is wanting to see Dr Malave, advised to go to the ER if any symptoms worsen, she and her verbalized their understand ing of the above [id number] Jose Manuel beltran MD [facility] [address] [place] [address] 11/13/2024 15:15:47 11/13/2024 16:15:14 Screening for osteoporosis 208870112 Z13.820 Vitamin D deficiency 347 88155 E55.9 Get on vit D weekly and repeat the vit d Type 2 darek betes mellitus without complication 160543177 E11.9 On metforminG et on Mounjaro, all side effects explained, she will come for teaching in 2 weeks, no history of MEN2 or thyroid or parathyroi d or pancreatic issuesGet labsNeeds to see eye BARIr Marce last OV 11/20/2020 Send for power distributor referral OV 11/14/2022 :Diabetic teaching for Mounjaro done today, all questions answered OV 03/20/2023 : On metforminG et labs OV 09/13/2023 :On metforminG et labs OV 02/12/2024 :On metforminM ore diet and exercise and get labs OV 06/03/2024 :On metformin 500mg bidRepeat the labs Screening - NAD 69605690 3 Z13.9 EGD: 05/09 Dr. Rush nC-scope: 03/16/17: Next in 5 yearsC-sco pe: 01/31/2023 : Dr Donaldson: Sees Dr Lopez Mammogram; 05/12/2020 : Birads 0 R breast, did get the US R breast, neg as per her hx and next in one year, orderedMam mogram: 03/08/2022 : NegMammogr am: 10/31/2023 : Ceci Carrington, dermatolog y 07/25/17, yearly skin surveillan ceDEXA: orderedUTD yearly flu shot.UTD tdap 4 years agoGet pneumovax and shingles vaccine only if OK with Dr Montes De Oca on COVID 19 vaccineUTD on RSV vaccineRTC in 2 monthsDo labsER if any symptoms worsenShe did verbalize their understand ing of the above Hypercholesterolemia 136 39555 E78.5 On atorvastat in 80mg dailyNot on vascepaMor e diet and exercise is neededGet labs Obstructiv e sleep apnea syndrome 65036627 G47.33 S/p sleep study in [place], [place] 2010, not using the CPAP as it does not allow her to breatheIs to get vestibular therapy thru ENT 07/14/2020 OV 04/19/2021 :Get an ENT aptShe states that she is doing wellOV 10/13/2021 :Needs to see ENT, referral again providedOV 06/22/2022 :Get another apt with ENTSend for otolaryngo logist referral OV 11/02/2022 :Refer to ENT OV 03/20/2023 :Does well now OV 09/13/2023 :Did see ENT, did see Dr Jorgensen OV 02/12/2024 :Get a referral to pulmonary again OV 06/03/2024 : See Dr Wyman, referred OV 11/13/2024 :Declined any referral as she wont do the mask Thrombocytosis 1634836 D 75.839 Dr Tatum Skin lesion 31871696 L98 .9 Dr Carrington, dermatolog y 07/25/17, does well now Mechanical low back pain 760890912 M54.50 S/p L surgery, s/p fusion L3-4-5 in 02/2018, done by Dr Martinez s that her bed is the problem On flexerill No LE/UE weakness or N/T in the legs and no bowel or bladder incontinen ce Essential hypertension 56062599 I10 Not taking the lisinopril 2.5mg dailyGet labs Anemia 221969653 D64.9 05/16/19: Dr Valdez: no further aptsGet labs Generalize d anxiety disorder 41025378 F41.1 On aripiprazo le 5mg dailyOn venlafaxin e ER 150mg 2 tablets, refilled by Dr Mari Bhatia ees Dr Cooper s well, not suicidal or homicidal Insomnia 730372852 G47.0 0 On trazodone 50mg take 1/4 tab to 3 tabs po q hs Osteoarthritis 504820664 M19.[address] Son rheumatolo gistOn sulfasalaz ineOn celebrex Liver enzy mes outside reference range 943251997 R94.5 get labs Irritable bowel syndrome 14285376 K58.[address] prather Proteinuria 39831208 R80 [address] Hollingsworth Hypothyroidism 50977622 E03.9 Low normal FT4C/o fatigue and weight gainGet US thyroid, may need levothyrox ine US thyroid 11/25/2022 , next in one year Increased liver function 65634061 R94.5 US liver: Hepatic steatosisM ore diet and exercise, may need to see GI Seasonal a llergic rhinitis 916738279 J30.2 On flonase, and claritin Coronary arteriosclerosis 02979123 I25.10 ECHO 10/06/2023 : EF 63%Stress test 10/31/2023 Dr Malave 11/28/2023 , begin infepaStat es 06/03/2024 , she stopped the infepaNeed s to see Dr Malave, did speak with Dr Malave, his office will schedule the apt this week She did not want to go to the ER today, 06/03/2024 , still has dizziness, wants to go home and monitor her symptoms, states that she is going to [place], she is wanting to see Dr Malave, advised to go to the ER if any symptoms worsen, she and her verbalized their understand ing of the above OV 11/13/2024 : Referred [facility] Screening mammography 24 267763 Z12.31 Health Concerns Section Related Observation LastModified by Organization Detai ls LastModified Time None Recorded Concern Status LastModified by Organization Details LastModified Time None Recorded Advance Directives Directive N: Patient given information . Payers Encounter Date Sequence Insurance Name Policy Number Policy Bates Covered Member ID Bates Member ID Guarantor Name 03/20/2023 1 [employer] (MEDICARE REPLACEMENT/A DVANTAGE - PPO) [id number] Sukibrisa Charles [id number] Suki Ruslan Charles 09/13/2023 1 [employer] (MEDICARE REPLACEMENT/A DVANTAGE - PPO) [id number] Sukibrisa Charles [id number] Suki Ruslan Charles 02/12/2024 1 [employer] (MEDICARE REPLACEMENT/A DVANTAGE - PPO) [id number] Suki C Melvin [id number] Suki C Melvin 06/03/2024 1 [employer] (MEDICARE REPLACEMENT/A DVANTAGE - PPO) [id number] Suki C Melvin [id number] Suki C Melvin 11/13/2024 1 [employer] (MEDICARE REPLACEMENT/A DVANTAGE - PPO) [id number] Suki C Melvin [id number] Suki C Melvin Notes Date Note Type Note Provider Name and Address Organization Details Recorded Time 03/20/2023 text/html 05/04/17Past PMD Dr Ward of :COPDGERDChronic painAnxietyHLDHere for her routine follow up, and is doing well, has had chest pain in the past 2 days, at rest did not 'last long', no palpitations or SOB or presyncpe or syncopeOV 06/08/17:Here with her husbandShe did do the labs on 06/03/17 and is here to discuss theseOV 10/18/17:Here as she is having some abd discomfortNo nausea or vomitingNo loss or appetiteDoes have 'excessive gas and bloating'Slight pain on the epigastrium and RUQ area, not related to foodNo blood in stool or urineNo difficulty swallowingNo weight lossShe also has had some R toenail 'broken line', she states that she did 'paint' her nails and now fears there is fungus in themOV 04/05/18:Here with her husbandShe states that she did get her back surgery and since then has not been feeling 'good'OV 05/02/18:Here for her routine aptShe feels that she is doing well at this timeShe did do the labs on 04/05/18 for her CBC OV 07/02/18:Here with her husbandHere for an ACV:She is having lance rib painShe denies any acute or remote traumaNo difficulty breathingOV 10/01/18:Here for her routine aptShe feels that she is doing well todayShe did do the labs on 09/20/18 and is here to review theseOV 01/16/19:Here as she has been having epigastric pain, R rib area pain and bloatingNormal appetiteNo N/V or diarrhea or constipationNo blood in stoolNo weight lossOV 06/13/19:Here for her routine aptHere with her husbandShe did do the labsHer ROS is otherwise negativeOV 11/21/2019:Here for her telephonic visit apt, she understands and agrees to do this apt via the telephoneShe states that she is doing very wellHer ROS is negativeShe did have a BP check 130/80 at homeShe did do the labs on 10/14/2019OV 03/23/2020:Here for her routine aptShe did do the labsShe also has seen ortho for L knee painShe is c/o IBS and was told that she does have constipation now and would like to get on a med for thisOV 07/20/2020:Here for tele visit, she does agreeable to do this visitShe did the labsShe feels Sury did see ENT and orthoOV 12/07/2020:Here for her routine aptShe feels Sury did do the labs on 11/06/2020 OV 04/19/2021:Here for her regular aptShe feels Sury did do the labs on 04/09/2021 OV 10/13/2021:Tele visitShe is agreeable to do the tele visitShe feels well, has had some diarrheaShe did do the labs on 10/09/2021 OV 06/22/2022:Here for her f/u apt, she is doing well, no recent labs noted since 2OV 11/02/2022:Here for her f/u apt, she did do the labs OV 11/14/2022:Here for her diabetic mounjaro teaching, she is doing well OV 03/20/2023: Here for her routine visit, does well Jose Manuel Quinones MD [address] [facility], [address], [place], [address], [place] [facility] [employer] [facility] 06/22/2023 08:51:19 09/13/2023 text/html 05/04/17Past PMD Dr Ward of :COPDGERDChronic painAnxietyHLDHere for her routine follow up, and is doing well, has had chest pain in the past 2 days, at rest did not 'last long', no palpitations or SOB or presyncpe or syncopeOV 06/08/17:Here with her husbandShe did do the labs on 06/03/17 and is here to discuss theseOV 10/18/17:Here as she is having some abd discomfortNo nausea or vomitingNo loss or appetiteDoes have 'excessive gas and bloating'Slight pain on the epigastrium and RUQ area, not related to foodNo blood in stool or urineNo difficulty swallowingNo weight lossShandres also has had some R toenail 'broken line', she states that she did 'paint' her nails and now fears there is fungus in themOV 04/05/18:Here with her husbandShe states that she did get her back surgery and since then has not been feeling 'good'OV 05/02/18:Here for her routine aptShe feels that she is doing well at this timeShe did do the labs on 04/05/18 for her CBC OV 07/02/18:Here with her husbandHere for an ACV:She is having lance rib painShe denies any acute or remote traumaNo difficulty breathingOV 10/01/18:Here for her routine aptShe feels that she is doing well todayShe did do the labs on 09/20/18 and is here to review theseOV 01/16/19:Here as she has been having epigastric pain, R rib area pain and bloatingNormal appetiteNo N/V or diarrhea or constipationNo blood in stoolNo weight lossOV 06/13/19:Here for her routine aptHere with her husbandShe did do the labsHer ROS is otherwise negativeOV 11/21/2019:Here for her telephonic visit apt, she understands and agrees to do this apt via the telephoneShe states that she is doing very wellHer ROS is negativeShe did have a BP check 130/80 at homeShe did do the labs on 10/14/2019OV 03/23/2020:Here for her routine aptShe did do the labsShe also has seen ortho for L knee painShe is c/o IBS and was told that she does have constipation now and would like to get on a med for thisOV 07/20/2020:Here for tele visit, she does agreeable to do this visitShe did the labsShe feels wellShe did see ENT and orthoOV 12/07/2020:Here for her routine aptShe feels Sury did do the labs on 11/06/2020 OV 04/19/2021:Here for her regular aptShe feels Sury did do the labs on 04/09/2021 OV 10/13/2021:Tele visitShe is agreeable to do the tele visitShe feels well, has had some diarrheaShe did do the labs on 10/09/2021 OV 06/22/2022:Here for her f/u apt, she is doing well, no recent labs noted since 2OV 11/02/2022:Here for her f/u apt, she did do the labs OV 11/14/2022:Here for her diabetic mounjaro teaching, she is doing well OV 03/20/2023: Here for her routine visit, does well OV 09/13/2023: Tele visit, she wanted to do the televisitShe is doing well, she did the labs on 09/08/2023 Jose Manuel Quinones MD [address] [facility], [address], [place], [address], [facility] [employer] 09/13/2023 14:59:34 02/12/2024 text/html 05/04/17Past PMD Dr Ward of :COPDGERDChronic painAnxietyHLDHere for her routine follow up, and is doing well, has had chest pain in the past 2 days, at rest did not 'last long', no palpitations or SOB or presyncpe or syncopeOV 06/08/17:Here with her husbandShe did do the labs on 06/03/17 and is here to discuss theseOV 10/18/17:Here as she is having some abd discomfortNo nausea or vomitingNo loss or appetiteDoes have 'excessive gas and bloating'Slight pain on the epigastrium and RUQ area, not related to foodNo blood in stool or urineNo difficulty swallowingNo weight lossShe also has had some R toenail 'broken line', she states that she did 'paint' her nails and now fears there is fungus in themOV 04/05/18:Here with her husbandShe states that she did get her back surgery and since then has not been feeling 'good'OV 05/02/18:Here for her routine aptShe feels that she is doing well at this timeShe did do the labs on 04/05/18 for her CBC OV 07/02/18:Here with her husbandHere for an ACV:She is having lance rib painShe denies any acute or remote traumaNo difficulty breathingOV 10/01/18:Here for her routine aptShe feels that she is doing well todayShe did do the labs on 09/20/18 and is here to review theseOV 01/16/19:Here as she has been having epigastric pain, R rib area pain and bloatingNormal appetiteNo N/V or diarrhea or constipationNo blood in stoolNo weight lossOV 06/13/19:Here for her routine aptHere with her husbandShe did do the labsHer ROS is otherwise negativeOV 11/21/2019:Here for her telephonic visit apt, she understands and agrees to do this apt via the telephoneShe states that she is doing very wellHer ROS is negativeShe did have a BP check 130/80 at homeShe did do the labs on 10/14/2019OV 03/23/2020:Here for her routine aptShe did do the labsShe also has seen ortho for L knee painShe is c/o IBS and was told that she does have constipation now and would like to get on a med for thisOV 07/20/2020:Here for tele visit, she does agreeable to do this visitShe did the labsShe feels Sury did see ENT and orthoOV 12/07/2020:Here for her routine aptShe feels Sury did do the labs on 11/06/2020 OV 04/19/2021:Here for her regular aptShe feels Sury did do the labs on 04/09/2021 OV 10/13/2021:Tele visitShe is agreeable to do the tele visitShe feels well, has had some diarrheaShe did do the labs on 10/09/2021 OV 06/22/2022:Here for her f/u apt, she is doing well, no recent labs noted since 2OV 11/02/2022:Here for her f/u apt, she did do the labs OV 11/14/2022:Here for her diabetic mounjaro teaching, she is doing well OV 03/20/2023: Here for her routine visit, does well OV 09/13/2023: Tele visit, she wanted to do the televisitShe is doing well, she did the labs on 09/08/2023 OV : Here for her follow up apt, she is doing well today, here for her MWV also, would like to get her handicap parking form filled out today Jose Manuel Quinones MD [address], [address], [place], [address], [facility] [employer] 02/12/2024 17:36:17 06/03/2024 text/html 05/04/17Past PMD Dr Ward of :COPDGERDChronic painAnxietyHLDHere for her routine follow up, and is doing well, has had chest pain in the past 2 days, at rest did not 'last long', no palpitations or SOB or presyncpe or syncopeOV 06/08/17:Here with her husbandShe did do the labs on 06/03/17 and is here to discuss theseOV 10/18/17:Here as she is having some abd discomfortNo nausea or vomitingNo loss or appetiteDoes have 'excessive gas and bloating'Slight pain on the epigastrium and RUQ area, not related to foodNo blood in stool or urineNo difficulty swallowingNo weight lossShe also has had some R toenail 'broken line', she states that she did 'paint' her nails and now fears there is fungus in themOV 04/05/18:Here with her husbandShe states that she did get her back surgery and since then has not been feeling 'good'OV 05/02/18:Here for her routine aptShe feels that she is doing well at this timeShe did do the labs on 04/05/18 for her CBC OV 07/02/18:Here with her husbandHere for an ACV:She is having lance rib painShe denies any acute or remote traumaNo difficulty breathingOV 10/01/18:Here for her routine aptShe feels that she is doing well todayShe did do the labs on 09/20/18 and is here to review theseOV 01/16/19:Here as she has been having epigastric pain, R rib area pain and bloatingNormal appetiteNo N/V or diarrhea or constipationNo blood in stoolNo weight lossOV 06/13/19:Here for her routine aptHere with her husbandShe did do the labsHer ROS is otherwise negativeOV 11/21/2019:Here for her telephonic visit apt, she understands and agrees to do this apt via the telephoneShe states that she is doing very wellHer ROS is negativeShe did have a BP check 130/80 at homeShe did do the labs on 10/14/2019OV 03/23/2020:Here for her routine aptShe did do the labsShe also has seen ortho for L knee painShe is c/o IBS and was told that she does have constipation now and would like to get on a med for thisOV 07/20/2020:Here for tele visit, she does agreeable to do this visitShe did the labsShe feels Sury did see ENT and orthoOV 12/07/2020:Here for her routine aptShe feels Sury did do the labs on 11/06/2020 OV 04/19/2021:Here for her regular aptShe feels Sury did do the labs on 04/09/2021 OV 10/13/2021:Tele visitShe is agreeable to do the tele visitShe feels well, has had some diarrheaShe did do the labs on 10/09/2021 OV 06/22/2022:Here for her f/u apt, she is doing well, no recent labs noted since 2OV 11/02/2022:Here for her f/u apt, she did do the labs OV 11/14/2022:Here for her diabetic mounjaro teaching, she is doing well OV 03/20/2023: Here for her routine visit, does well OV 09/13/2023: Tele visit, she wanted to do the televisitShe is doing well, she did the labs on 09/08/2023 OV : Here for her follow up apt, she is doing well today, here for her MWV also, would like to get her handicap parking form filled out today OV 06/03/2024: Here for her f/u apt, she is c/o dizziness today, states that she is 'just not feeling right', no chest pain or SOB, no palpitations, no syncope or presyncope, here with her Jose Manuel Quinones MD [address] [facility], [facility] [address], [place], [address], [place] [facility] [employer] 06/03/2024 12:59:20 11/13/2024 text/html 05/04/17Past PMD Dr Ward of :COPDGERDChronic painAnxietyHLDHere for her routine follow up, and is doing well, has had chest pain in the past 2 days, at rest did not 'last long', no palpitations or SOB or presyncpe or syncopeOV 06/08/17:Here with her husbandShe did do the labs on 06/03/17 and is here to discuss theseOV 10/18/17:Here as she is having some abd discomfortNo nausea or vomitingNo loss or appetiteDoes have 'excessive gas and bloating'Slight pain on the epigastrium and RUQ area, not related to foodNo blood in stool or urineNo difficulty swallowingNo weight lossShe also has had some R toenail 'broken line', she states that she did 'paint' her nails and now fears there is fungus in themOV 04/05/18:Here with her husbandShe states that she did get her back surgery and since then has not been feeling 'good'OV 05/02/18:Here for her routine aptShe feels that she is doing well at this timeShe did do the labs on 04/05/18 for her CBC OV 07/02/18:Here with her husbandHere for an ACV:She is having lance rib painShe denies any acute or remote traumaNo difficulty breathingOV 10/01/18:Here for her routine aptShe feels that she is doing well todayShe did do the labs on 09/20/18 and is here to review theseOV 01/16/19:Here as she has been having epigastric pain, R rib area pain and bloatingNormal appetiteNo N/V or diarrhea or constipationNo blood in stoolNo weight lossOV 06/13/19:Here for her routine aptHere with her husbandShe did do the labsHer ROS is otherwise negativeOV 11/21/2019:Here for her telephonic visit apt, she understands and agrees to do this apt via the telephoneShe states that she is doing very wellHer ROS is negativeShe did have a BP check 130/80 at homeShe did do the labs on 10/14/2019OV 03/23/2020:Here for her routine aptShe did do the labsShe also has seen ortho for L knee painShe is c/o IBS and was told that she does have constipation now and would like to get on a med for thisOV 07/20/2020:Here for tele visit, she does agreeable to do this visitShe did the labsShe feels Sury did see ENT and orthoOV 12/07/2020:Here for her routine aptShe ryder Ga did do the labs on 11/06/2020 OV 04/19/2021:Here for her regular aptShe feels Sury did do the labs on 04/09/2021 OV 10/13/2021:Tele visitShe is agreeable to do the tele visitShe feels well, has had some diarrheaShe did do the labs on 10/09/2021 OV 06/22/2022:Here for her f/u apt, she is doing well, no recent labs noted since 2OV 11/02/2022:Here for her f/u apt, she did do the labs OV 11/14/2022:Here for her diabetic mounjaro teaching, she is doing well OV 03/20/2023: Here for her routine visit, does well OV 09/13/2023: Tele visit, she wanted to do the televisitShe is doing well, she did the labs on 09/08/2023 OV : Here for her follow up apt, she is doing well today, here for her MWV also, would like to get her handicap parking form filled out today OV 06/03/2024: Here for her f/u apt, she is c/o dizziness today, states that she is 'just not feeling right', no chest pain or SOB, no palpitations, no syncope or presyncope, here with her Jose Manuel Quinones MD [address] [facility], [facility] [address], [place], [address], [facility] 11/13/2024 16:07:54 OBGyn Episode No OBEpisode recorded.
[2024-11-22 14:17] LABS: Basophils Percent Auto 0.4 % (0.2-1.2); Eosinophils Percent Auto 0.2 % (0-4.4); Hematocrit 37.8 % (37.0-47.0); Hemoglobin 11.9 g/dL (12.0-15.0); Immature Granulocyte Absolute 0.09 K/mm3 (0.00-0.031); Immature Granulocyte Percent A 1.1 % (0-0.5); Lymphocytes Absolute Auto 0.92 K/mm3 (0.9-3.2); Lymphocytes Percent Auto 11.2 % (18.3-44.2); Mean Corpuscular HGB Conc 31.5 g/dl (32-36); Mean Corpuscular Hemoglobin 26.9 pg (26-34); Mean Corpuscular Volume 85.5 fl (80-100); Mean Platelet Volume 8.3 fl (7.4-10.4); Monocytes Absolute Auto 0.1 K/mm3 (0.1-0.6); Monocytes Percent Auto 1.3 % (2.6-8.5); Neutrophils Absolute Auto 7.1 K/mm3 (1.3-6.7); Neutrophils Percent Auto 85.8 % (45.5-73.1); Platelet Count Result 454 k/mm3 (150-375); Red Blood Count 4.42 M/mm3 (4.2-5.4); Red Cell Distribution Width 14.6 % (11.5-14.5); White Blood Count 8.2 K/mm3 (4.5-10.0)
[2024-11-22 15:20] LABS: Anion Gap 12 mmol/L (4-12); Blood Urea Nitrogen 15 mg/dL (7-17); Calcium 9.6 mg/dL (8.4-10.2); Carbon Dioxide 27 mmol/L (22-30); Chloride 98 mmol/L (98-107); Estimated Glomerular Filt Rate > 60; Glucose 310 mg/dL (65-110); Sodium 137 mmol/L (137-145)
[2024-11-22 15:23] LABS: Iron 54 ug/dL (37-170)
[2024-11-22 15:39] LABS: Percent Iron Saturation 17 % (20-50)
== END 2024-11-22 13:51 | disposition home or self-care (01) ==
LOC: ANHLAB 13:51
PROVIDERS: PCP Internal Medicine; Visit Provider Internal Medicine Hematology & Oncology
DX: D64.9 Anemia, unspecified (principal)
CPT/HCPCS: 36415; 80048; 82607; 82728; 83540; 83550; 85025

== ENCOUNTER 2025-06-11 10:56 | Outpatient (CLI) | payer MEDICARE, SELFPAY ==
--- NOTE | ~2025-06-11 | DEXA_ITS ---
Bone Density Report Name: SELVIN LYONS Age: 69 Sex: Female Ethnicity: White Date of : 1955 Indication: postmenopausal; screening for osteoporosis; history of glucocorticoids; hysterectomy; Referring Provider: Stacie, Jai Study: Bone densitometry was performed. Exam Date: June 11, 2025 Accession number: [id number] Bone Density: Region BMD T-score Z-score Classification AP Spine(L1, L2) 1.389 3.7 5.7 Normal Femoral Neck (Left) 0.883 0.3 2.1 Normal Total Hip (Left) 1.080 1.1 2.6 Normal Femoral Neck (Right) 0.877 0.3 2.0 Normal Total Hip (Right) 1.145 1.7 3.2 Normal Total Hip Mean 1.112 1.4 2.9 Normal World Health Organization criteria for BMD impression classify patients as: Normal (T-score at or above -1.0), Osteopenia (T-score between -1.0 and -2.5), or Osteoporosis (T-score at or below -2.5). 10-year Fracture Risk: FRAX not reported because: All T-scores for Spine Total, Hip Total, Femoral Neck at or above -1.0 Previous Exams: -- Region Exam Age BMD T-score BMD Change BMD Change Date g/cm2 vs Baseline vs Previous -- AP Spine (L1-L2) 06/11/2025 69 1.389 3.7 3.8%# 0.1%# 09/24/2010 55 1.388 3.7 3.7%* 3.7%* 04/27/2007 51 1.339 3.3 Total Hip(Left) 06/11/2025 69 1.080 1.1 -6.8%# -6.9%# 09/24/2010 55 1.160 1.8 0.1% 0.1% 04/27/2007 51 1.158 1.8 Total Hip(Right) 06/11/2025 69 1.145 1.7 -3.9%# -3.1%# 09/24/2010 55 1.182 2.0 -0.9% -0.9% 04/27/2007 51 1.192 2.0 -- *Denotes significance at 95% confidence level, LSC for AP Spine = 0.022 g/cm2, LSC for Total Hip = 0.027 g/cm2 Rate of change results reflect vertebral levels common to all scans # Denotes dissimilar scan types or analysis methods Clinical Information Provided by Patient: Has taken Glucocorticoids Has used the following medications: HRT (i.e. estrogen/hormone therapy), Vitamin D Has the following medical conditions: Hysterectomy Patient maximum height was 65 Menopause Age: 41 No regular weight bearing exercise Drinks caffeinated beverages Onset of menses at age 11 Number of children 3 Impression: The patient has normal bone mass. The patient has risk factors, including: history of glucocorticoid therapy. Unable to evaluate interval change due to the use of different scan modes. Discussion: LOW RISK OF FRACTURE; BONE DENSITY IS WELL ABOVE THE MINIMUM DESIRABLE LEVEL AND ABOVE AVERAGE FOR AGE AND SEX AT ALL SKELETAL SITES TESTED. This person's bone density is above expected limits for age and sex. This is rarely clinically significant, but should be pursued if there are significant musculoskeletal complaints. The patient should follow a healthful lifestyle (good nutrition with adequate calcium and vitamin D, and appropriate weight-bearing exercise). Follow-Up: Consider repeating this study in 5 years or sooner if there is some new clinical indication. Reported by: RAMSES on 06/11/2025 11:49:00 AM. Reviewed, dictated and finalized at location A.
--- NOTE | ~2025-06-11 | MM_ITS ---
EXAMINATION: MM screening anastasia BI w jalen HISTORY: Screening TECHNIQUE: Craniocaudal and mediolateral oblique 3-D tomosynthesis images were obtained and synthetic 2-D images were generated. CAD analysis was submitted and interpreted. COMPARISON: 03/08/2022 BREAST PARENCHYMAL COMPOSITION: There are scattered areas of fibroglandular density. FINDINGS: There is no evidence of suspicious mass, calcification, or architectural distortion to suggest malignancy. There has been no suspicious interval change. IMPRESSION: 1. No mammographic evidence of malignancy. Recommend routine screening mammography in one year. BI-RADS Category 2: Benign finding(s) Reviewed, dictated and finalized at location Q. IMPRESSION: 1. No mammographic evidence of malignancy. Recommend routine screening mammogra phy in one year. BI-RADS Category 2: Benign finding(s)
== END 2025-06-11 10:57 | disposition home or self-care (01) ==
PROVIDERS: PCP Internal Medicine; Visit Provider Internal Medicine
DX: Z12.31 Encounter for screening mammogram for malignant neoplasm of breast (principal); Z78.0 Asymptomatic menopausal state
CPT/HCPCS: 77063; 77067; 77080